=== PATIENT | female | born 1975 | race Caucasian/White ===

== ENCOUNTER 2021-01-16 13:26 | Inpatient (IN) | payer MEDICARE, OTHER, SELFPAY ==
--- NOTE | ~2021-01-16 | CT_ITS ---
EXAMINATION: CT ANGIOGRAM OF THE CHEST WITH AND WITHOUT CONTRAST (CT PULMONARY ANGIOGRAM FOR PE) CLINICAL INFORMATION: Hypoxia, COVID, elevated D-dimer, evaluate for pulmonary embolism. COMPARISON: None TECHNIQUE: Prior to contrast administration, noncontrast localization images were obtained. Subsequently, multidetector volumetric imaging was performed from the thoracic inlet to below the diaphragms following the administration of 71 mL Omnipaque 350 intravenous contrast. No contrast reaction reported. Sagittal, coronal, and MIP oblique sagittal reformatted images were obtained on the CT workstation, uploaded to PACS, and reviewed. This CT examination was performed using dose optimization techniques as appropriate, variously including the following: *Automated exposure control *Adjustment of mA and/or kV according to patient size (this includes techniques or standardized protocols for targeted exams where dose is matched to indication/reason for exam; i.e. extremities or head) *Use of iterative reconstruction technique DLP: Total exam dose-length product 430 mGy-cm FINDINGS: LOCALIZER IMAGES: Large body habitus. Patchy hazy bilateral pulmonary opacities. LUNGS AND PLEURA: Trachea and central airways are widely patent and normal in caliber. Multiple patchy predominantly groundglass opacities scattered throughout both lungs. Many of the opacities are peripherally distributed. These are typical imaging findings of Covid pneumonia. Linear opacity of atelectasis is present in the medial left lower lobe. An old opacity in the posteromedial right lower lobe likely represents focal fibrosis at site of prior infection/inflammation. No pneumothorax or pleural effusion. QUALITY OF STUDY/CONTRAST BOLUS: Satisfactory. CARDIOVASCULAR: Pulmonary arteries are normal in size. An embolism of the right upper lobe pulmonary artery extends into the apical branch. A subsegmental embolism is present in the right middle lobe. A right lower lobe embolism has components involving the proximal branches to the lateral and posterior basilar segments. The heart size is normal. No inward bowing of the interventricular septum; no heart strain. Thoracic aorta is normal; no aneurysm or dissection. No pericardial effusion. MEDIASTINUM/LOWER NECK: The esophagus and visualized portion of the thyroid gland are normal. No mediastinal mass. LYMPHATICS: No pathologic sized axillary, hilar or mediastinal lymph nodes. UPPER ABDOMEN: No contrast reflux into the inferior vena cava. No acute findings in the visualized upper abdomen. Spleen is chronically enlarged, currently 14.6 cm AP dimension (13.5 cm on 07/26/2014). OSSEOUS STRUCTURES: No acute or suspicious osseous abnormality. CT/CT angio chest PE protocol IMPRESSION: * Patchy bilateral groundglass pulmonary opacities are present. Findings are consistent with Covid pneumonia. * There are emboli involving the right upper, middle and right lower lobes. However, no evidence of heart strain. * Patient has a large body habitus and there is chronic splenomegaly. The critical test result was discussed with WALTER York at 7:52 pm on 01/16/2021 and it was ascertained that the content and the importance of the findings was understood at the time of the direct communication.
--- NOTE | ~2021-01-16 | XR_ITS ---
EXAMINATION: XR CHEST CLINICAL INFORMATION: Shortness of breath. COMPARISON: Chest radiograph dated from 03/09/2015. TECHNIQUE: AP view of the chest was obtained. FINDINGS: Normal appearance of the cardiomediastinal silhouette. There are low lung volumes with interstitial prominence and patchy opacities in the middle and lower lobes. No pleural effusions or pneumothorax. No acute osseous findings. XR/XR chest 1V IMPRESSION: Bronchial wall thickening and patchy opacities in the lung bases of uncertain etiology. An atypical multifocal infection is not excluded. Correlate clinically and follow-up to ensure resolution.
--- NOTE | 2021-01-16 13:38 | ED.SOB ---
HPI - SOB/Dyspnea General Chief Complaint: Dyspnea <WALTER Ko - Last Filed: 01/16/21 19:09> Stated Complaint: + COVID Weakness SOB <WALTER Ko - Last Filed: 01/16/21 19:09> Time Seen by Provider: 01/16/21 13:38 <WALTER Ko - Last Filed: 01/16/21 19:09> Source: patient <WALTER Ko - Last Filed: 01/16/21 19:09> Mode of arrival: ambulatory <WALTER Ko - Last Filed: 01/16/21 19:09> Limitations: no limitations <WALTER Ko Last Filed: 01/16/21 19:09> History of Present Illness HPI Narrative: 46 y/o female with no known past medical history presents to the emergency department with shortness of breath, fevers, chills, abdominal pain, chest pain, weakness and fatigue X7 days. She also states that she has been having vomiting and diarrhea X2 days. She is unable to quantify how many times she has had vomiting, diarrhea episodes. She states at home her fevers have been anywhere between 100 and 101 degrees F. she reports vague epigastric pain for the past week. She also reports substernal chest pain, that is intermittent in nature and does not radiate. She reports constant, and worsening shortness of breath over the past 7 days, which is worse with exertion. Alll 5 individuals which she lives with at home are all sick with COVID 19. She states that she tested positive for COVID on January 10, but her symptoms began a few days before she tested positive. She does not have a cough. She is not a smoker. <WALTER Ko Last Filed: 01/16/21 19:09> MD elicited complaint: shortness of breath and chest pain (Substernal) <WALTER Ko Last Filed: 01/16/21 19:09> Onset (ago): day(s) (7) <WALTER Ko Last Filed: 01/16/21 19:09> Context: other (Recent sick contacts) <WALTER Ko Last Filed: 01/16/21 19:09> Severity: severe <WALTER Ko Last Filed: 01/16/21 19:09> Exacerbating factors: movement, coughing, inspiration and talking <WALTER Ko Last Filed: 01/16/21 19:09> Relieving factors: nothing <WALTER Ko Last Filed: 01/16/21 19:09> Associated symptoms: chest pain, fever, diaphoresis, nausea/vomiting, abdominal pain (Epigastric pain) and chest congestion <WALTER Ko Last Filed: 01/16/21 19:09> Treatment prior to arrival: oxygen (On 2 L via nasal cannula.) <WALTER Ko Last Filed: 01/16/21 19:09> Related Data Home oxygen amount: none <WALTER Ko Last Filed: 01/16/21 19:09> Home Medications: Home Medications Medication Instructions Recorded Confirmed buspirone 15 mg tablet 1 tab PO BID 01/16/21 01/16/21 hydrocodone 5 mg-acetaminophen 325 1 tab PO DAILY PRN 01/16/21 01/16/21 mg tablet multivitamin 1 tab PO DAILY 01/16/21 01/16/21 norethindrone 1 mg-ethinyl 1 tab PO DAILY 01/16/21 01/16/21 estradiol 20 mcg (21)-iron 75 mg (7) tablet (05/15 (28)) sertraline 100 mg tablet 1 tab PO DAILY 01/16/21 01/16/21 tizanidine 2 mg tablet 1 tab PO Q OTHER DAY PRN 01/16/21 01/16/21 <WALTER Ko - Last Filed: 01/16/21 19:09> Allergies/Adverse Reactions: Allergies Allergy/AdvReac Type Severity Reaction Status Date / Time sulfamethoxazole Allergy Unknown VOMITING Unverified 01/11/20 16:40 [From BACTRIM] trimethoprim [From BACTRIM] Allergy Unknown VOMITING Unverified 01/11/20 16:40 naproxen [NAPROXEN] AdvReac Intermediate NAUSEA & Unverified 01/11/20 16:40 VOMITING <WALTER Ko Last Filed: 01/16/21 19:09> Review of Systems Review of Systems: Constitutional: + Fever, + Chills ENT/Mouth: No sore throat, No Rhinorrhea, No Swallowing Difficulty Cardiovascular: + Chest Pain, + SOB, No Orthopnea, No Edema Respiratory: No Cough, No Sputum, No Wheezing, + dyspnea Gastrointestinal: + Nausea, + Vomiting, + Diarrhea, + abdominal Pain, No Hematochezia, No Melena Genitourinary: No Dysuria, No Urinary Frequency, No Hematuria Musculoskeletal: No joint pain, No Myalgias Skin: No Skin Lesions, No rash Neuro: No Weakness, No Numbness, No Dizziness, No Headache <WALTER Ko - Last Filed: 01/16/21 19:09> [facility] Social History Social History: Social History Patient Tobacco Use Status: Never used Tobacco Smoked in Last 30 Days: No Use of substances other than those prescribed or required for medical reasons: No Advance Directives: No Advance Directives Information Provided: No <WALTER Ko - Last Filed: 01/16/21 19:09> Physical Exam Vital Signs: Vital Signs: Last Vital Signs Temp 98.1 F 01/16/21 18:08 Pulse 86 01/16/21 18:08 Resp 16 01/16/21 18:08 BP 152/96 H 01/16/21 18:08 Pulse Ox 96 01/16/21 18:08 Oxygen Flow Rate 2 01/16/21 13:55 Body Mass Index 42.0 <WALTER Ko - Last Filed: 01/16/21 19:09> Vital Signs: Last Vital Signs Temp 98.1 F 01/16/21 18:08 Pulse 86 01/16/21 18:08 Resp 16 01/16/21 18:08 BP 152/96 H 01/16/21 18:08 Pulse Ox 96 01/16/21 18:08 Oxygen Flow Rate 2 01/16/21 13:55 Body Mass Index 42.0 <WALTER York - Last Filed: 01/16/21 19:30> Appearance: Alert. Oriented X3. No acute distress. Eyes: Pupils equal, round and reactive to light. ENT: Pharynx normal. Neck: Normal inspection. Neck supple. CVS: + normal rhythm rapid rate likely sinus tachycardia. Pulses normal. Respiratory: No respiratory distress. + Breath sounds diminished bilaterally in all lung espinosa Abdomen: Soft and + tenderness to the epigastric region. +BS x4 Skin: Skin warm and dry. + palor noted throughout. Normal skin turgor. No rashes. Extremities: No lower extremity edema. Neuro: Oriented X 3. No motor deficit. No sensory deficit. <WALTER Ko - Last Filed: 01/16/21 19:09> Course Course Course Narrative: 1428 This is a 46-year-old female with no known past medical history that presents to the emergency department with chest pain, shortness of breath, abdominal pain, nausea, vomiting, diarrhea, and fevers. Nausea, vomiting and diarrhea started 2 days ago. She is unable to quantify how many times she has had vomiting and/or diarrhea. She has been experiencing all other symptoms for 7 days. Her chest pain is substernal, nonradiating, and intermittent in nature. She has been experiencing increasing shortness of breath over the past 7 days, to the point she states she feels like she is going to to pass out. She tested positive for COVID-19 on January 10, however she started having symptoms on the . Today upon physical examination she is saturating 96% on 2 L. When the ambulance arrived on scene, she was saturating 93% on room air. Upon physical examination the patient appears uncomfortable, pale, and there are bilateral diminished breath sounds in all lung espinosa. She is also tachycardic in the high 90s low 100s. Plan- EKG, chest x-ray, CRP, ESR, lactic acid, LDH, procalcitonin, tropes, urine , BMP, CBC, COVID swab, D-dimer, ferritin, lipase, liver panel, mag, UA, blood cultures. She will also be given fluids, dexamethasone, and Zofran. 1544 Chest x-ray shows bronchial wall thickening and patchy opacities in the lung bases. 1625- Trop 8.3 patient still reporting chest pressure will do another trop at 1845 1636- Patient on 3L on nasal cannula saturating 96%. A walking O2 was done, she was saturating 90% on RA with a pulse rate of 102, with labored breathing and a cough, she was unable to walk the full 1 minutes, due to shortness of breath, labored breathing and cough. Based on off this patients labs, physical exam, EKG, and imaging this patient should be admitted for COVID-19 and hypoxia. Will need to reach out to the hospitalist for possible admission. DDIMER 2200 - will get CTA to r/o PE. <WALTER Ko - Last Filed: 01/16/21 19:09> MDM - SOB/Dyspnea Lab Data Result diagrams: : 01/16/21 15:17 01/16/21 15:17 <WALTER Ko - Last Filed: 01/16/21 19:09> Labs: Lab Results 01/16/21 01/16/21 01/16/21 Range/Units 15:16 15:16 15:17 WBC (4.8-10.8) X10*3/uL RBC (4.20-5.50) X10*6/uL Hgb (12.0-16.0) g/dl Hct (37-47) % MCV (80-98) fL MCH (27.0-33.0) pg MCHC (31.0-35.0) g/dl RDW (11.0-16.0) % Plt Count (160-400) X10*3/uL MPV (9.4-12.3) fL Immature Gran % (Auto) (0.0-0.4) % Neut % (Auto) (45-73) % Lymph % (Auto) (20-40) % Butts % (Auto) (2-11) % Eos % (Auto) (0-4) % Baso % (Auto) (0-2) % Lymph # (Auto) (1.2-4.9) X10*3/uL Butts # (Auto) (0.1-1.2) X10*3/uL Eos # (Auto) (0.0-0.4) X10*3/uL Baso # (Auto) (0.0-0.2) X10*3/uL Abs Immat Gran (auto) (0.00-0.03) X10*3/uL Absolute Neuts (auto) (2.0-8.3) X10*3/uL Absolute Nucleated RBC (0.0-0.012) X10*3/uL Nucleated RBC % (auto) (0.0-0.2) /100WBC ESR (0-20) MM/HR D-Dimer NG/ML Sodium 136 (135-145) mmol/L Potassium 3.5 (3.3-5.1) mmol/L Chloride 106 (96-108) mmol/L Carbon Dioxide 19 L (22-29) mmol/L Anion Gap 15 (12-20) BUN 10 (9-16) mg/dL Creatinine 0.63 (0.5-1.4) mg/dL Estim Creat Clear Calc 125.0 Estimated GFR > 60 Random Glucose 114 (60-115) mg/dL Lactic Acid 1.0 (0.5-2.0) mmol/L Calcium 8.4 (8.4-10.2) mg/dL Magnesium 1.8 (1.6-2.6) mg/dL Ferritin (10-250) ng/mL Total Bilirubin 0.5 (0.0-1.0) mg/dL Direct Bilirubin 0.3 (0.0-0.5) mg/dL AST 41 H (5-31) U/L ALT 38 H (0-31) U/L Alkaline Phosphatase 70 (39-117) U/L Lactate Dehydrogenase 387 H (122-220) U/L Troponin I High Sens (<3.5-17.0) ng/L C-Reactive Protein 5.39 H (< or = 0.50) mg/dL Total Protein 6.7 (6.5-8.0) g/dL Albumin 3.9 (3.5-5.0) g/dL Lipase 46 (8-78) U/L Procalcitonin ng/mL Urine Color Urine Appearance Urine pH (5.0-8.0) Ur Specific [employer] (1.005-1.025) Urine Protein (NEG-TRACE) MG/DL Urine Glucose (UA) (NEG) MG/DL Urine Ketones (NEG) MG/DL Urine Blood (NEG) Urine Nitrite (NEG) Ur Leukocyte Esterase (NEG) Urine RBC (0) /HPF Urine WBC (0-4) /HPF Ur Squamous Epith Cells /LPF Talc Crystals /LPF Urine Bacteria /LPF Urine Test (NEGATIVE) COVID-19 ([facility]) Positive A (Negative) COVID-19 Clin Com See Note 01/16/21 01/16/21 01/16/21 Range/Units 15:17 15:17 15:17 WBC 3.9 L (4.8-10.8) X10*3/uL RBC 4.62 (4.20-5.50) X10*6/uL Hgb 12.5 (12.0-16.0) g/dl Hct 37.3 (37-47) % MCV 80.7 (80-98) fL MCH 27.1 (27.0-33.0) pg MCHC 33.5 (31.0-35.0) g/dl RDW 13.5 (11.0-16.0) % Plt Count 180 (160-400) X10*3/uL MPV 9.7 (9.4-12.3) fL Immature Gran % (Auto) 0.3 (0.0-0.4) % Neut % (Auto) 80.4 H (45-73) % Lymph % (Auto) 13.9 L (20-40) % Butts % (Auto) 5.4 (2-11) % Eos % (Auto) 0.0 (0-4) % Baso % (Auto) 0.0 (0-2) % Lymph # (Auto) 0.5 L (1.2-4.9) X10*3/uL Butts # (Auto) 0.2 (0.1-1.2) X10*3/uL Eos # (Auto) 0.0 (0.0-0.4) X10*3/uL Baso # (Auto) 0.0 (0.0-0.2) X10*3/uL Abs Immat Gran (auto) 0.01 (0.00-0.03) X10*3/uL Absolute Neuts (auto) 3.1 (2.0-8.3) X10*3/uL Absolute Nucleated RBC 0.000 (0.0-0.012) X10*3/uL Nucleated RBC % (auto) 0.0 (0.0-0.2) /100WBC ESR 16 (0-20) MM/HR D-Dimer NG/ML Sodium (135-145) mmol/L Potassium (3.3-5.1) mmol/L Chloride (96-108) mmol/L Carbon Dioxide (22-29) mmol/L Anion Gap (12-20) BUN (9-16) mg/dL Creatinine (0.5-1.4) mg/dL Estim Creat Clear Calc Estimated GFR Random Glucose (60-115) mg/dL Lactic Acid (0.5-2.0) mmol/L Calcium (8.4-10.2) mg/dL Magnesium (1.6-2.6) mg/dL Ferritin (10-250) ng/mL Total Bilirubin (0.0-1.0) mg/dL Direct Bilirubin (0.0-0.5) mg/dL AST (5-31) U/L ALT (0-31) U/L Alkaline Phosphatase (39-117) U/L Lactate Dehydrogenase (122-220) U/L Troponin I High Sens (<3.5-17.0) ng/L C-Reactive Protein (< or = 0.50) mg/dL Total Protein (6.5-8.0) g/dL Albumin (3.5-5.0) g/dL Lipase (8-78) U/L Procalcitonin 0.05 ng/mL Urine Color Urine Appearance Urine pH (5.0-8.0) Ur Specific [employer] (1.005-1.025) Urine Protein (NEG-TRACE) MG/DL Urine Glucose (UA) (NEG) MG/DL Urine Ketones (NEG) MG/DL Urine Blood (NEG) Urine Nitrite (NEG) Ur Leukocyte Esterase (NEG) Urine RBC (0) /HPF Urine WBC (0-4) /HPF Ur Squamous Epith Cells /LPF Talc Crystals /LPF Urine Bacteria /LPF Urine Test (NEGATIVE) COVID-19 ([facility]) (Negative) COVID-19 Clin Com 01/16/21 01/16/21 01/16/21 Range/Units 15:17 15:17 16:38 WBC (4.8-10.8) X10*3/uL RBC (4.20-5.50) X10*6/uL Hgb (12.0-16.0) g/dl Hct (37-47) % MCV (80-98) fL MCH (27.0-33.0) pg MCHC (31.0-35.0) g/dl RDW (11.0-16.0) % Plt Count (160-400) X10*3/uL MPV (9.4-12.3) fL Immature Gran % (Auto) (0.0-0.4) % Neut % (Auto) (45-73) % Lymph % (Auto) (20-40) % Butts % (Auto) (2-11) % Eos % (Auto) (0-4) % Baso % (Auto) (0-2) % Lymph # (Auto) (1.2-4.9) X10*3/uL Butts # (Auto) (0.1-1.2) X10*3/uL Eos # (Auto) (0.0-0.4) X10*3/uL Baso # (Auto) (0.0-0.2) X10*3/uL Abs Immat Gran (auto) (0.00-0.03) X10*3/uL Absolute Neuts (auto) (2.0-8.3) X10*3/uL Absolute Nucleated RBC (0.0-0.012) X10*3/uL Nucleated RBC % (auto) (0.0-0.2) /100WBC ESR (0-20) MM/HR D-Dimer 2200 NG/ML Sodium (135-145) mmol/L Potassium (3.3-5.1) mmol/L Chloride (96-108) mmol/L Carbon Dioxide (22-29) mmol/L Anion Gap (12-20) BUN (9-16) mg/dL Creatinine (0.5-1.4) mg/dL Estim Creat Clear Calc Estimated GFR Random Glucose (60-115) mg/dL Lactic Acid (0.5-2.0) mmol/L Calcium (8.4-10.2) mg/dL Magnesium (1.6-2.6) mg/dL Ferritin 1172 H (10-250) ng/mL Total Bilirubin (0.0-1.0) mg/dL Direct Bilirubin (0.0-0.5) mg/dL AST (5-31) U/L ALT (0-31) U/L Alkaline Phosphatase (39-117) U/L Lactate Dehydrogenase (122-220) U/L Troponin I High Sens 8.3 (<3.5-17.0) ng/L C-Reactive Protein (< or = 0.50) mg/dL Total Protein (6.5-8.0) g/dL Albumin (3.5-5.0) g/dL Lipase (8-78) U/L Procalcitonin ng/mL Urine Color Urine Appearance Urine pH (5.0-8.0) Ur Specific [employer] (1.005-1.025) Urine Protein (NEG-TRACE) MG/DL Urine Glucose (UA) (NEG) MG/DL Urine Ketones (NEG) MG/DL Urine Blood (NEG) Urine Nitrite (NEG) Ur Leukocyte Esterase (NEG) Urine RBC (0) /HPF Urine WBC (0-4) /HPF Ur Squamous Epith Cells /LPF [employer]c Crystals /LPF Urine Bacteria /LPF Urine Test (NEGATIVE) COVID-19 ([facility]) (Negative) COVID-19 Clin Com 01/16/21 01/16/21 01/16/21 Range/Units 16:38 16:38 18:46 WBC (4.8-10.8) X10*3/uL RBC (4.20-5.50) X10*6/uL Hgb (12.0-16.0) g/dl Hct (37-47) % MCV (80-98) fL MCH (27.0-33.0) pg MCHC (31.0-35.0) g/dl RDW (11.0-16.0) % Plt Count (160-400) X10*3/uL MPV (9.4-12.3) fL Immature Gran % (Auto) (0.0-0.4) % Neut % (Auto) (45-73) % Lymph % (Auto) (20-40) % Butts % (Auto) (2-11) % Eos % (Auto) (0-4) % Baso % (Auto) (0-2) % Lymph # (Auto) (1.2-4.9) X10*3/uL Butts # (Auto) (0.1-1.2) X10*3/uL Eos # (Auto) (0.0-0.4) X10*3/uL Baso # (Auto) (0.0-0.2) X10*3/uL Abs Immat Gran (auto) (0.00-0.03) X10*3/uL Absolute Neuts (auto) (2.0-8.3) X10*3/uL Absolute Nucleated RBC (0.0-0.012) X10*3/uL Nucleated RBC % (auto) (0.0-0.2) /100WBC ESR (0-20) MM/HR D-Dimer NG/ML Sodium (135-145) mmol/L Potassium (3.3-5.1) mmol/L Chloride (96-108) mmol/L Carbon Dioxide (22-29) mmol/L Anion Gap (12-20) BUN (9-16) mg/dL Creatinine (0.5-1.4) mg/dL Estim Creat Clear Calc Estimated GFR Random Glucose (60-115) mg/dL Lactic Acid (0.5-2.0) mmol/L Calcium (8.4-10.2) mg/dL Magnesium (1.6-2.6) mg/dL Ferritin (10-250) ng/mL Total Bilirubin (0.0-1.0) mg/dL Direct Bilirubin (0.0-0.5) mg/dL AST (5-31) U/L ALT (0-31) U/L Alkaline Phosphatase (39-117) U/L Lactate Dehydrogenase (122-220) U/L Troponin I High Sens 8.9 (<3.5-17.0) ng/L C-Reactive Protein (< or = 0.50) mg/dL Total Protein (6.5-8.0) g/dL Albumin (3.5-5.0) g/dL Lipase (8-78) U/L Procalcitonin ng/mL Urine Color DK YELLOW Urine Appearance CLEAR Urine pH 6.0 (5.0-8.0) Ur Specific [employer] 1.010 (1.005-1.025) Urine Protein 1+ H (NEG-TRACE) MG/DL Urine Glucose (UA) NEG (NEG) MG/DL Urine Ketones NEG (NEG) MG/DL Urine Blood NEG (NEG) Urine Nitrite NEG (NEG) Ur Leukocyte Esterase NEG (NEG) Urine RBC 0 (0) /HPF Urine WBC 0 (0-4) /HPF Ur Squamous Epith Cells 2+ /LPF [employer]c Crystals 3+ /LPF Urine Bacteria NONE /LPF Urine Test NEGATIVE (NEGATIVE) COVID-19 ([facility]) (Negative) COVID-19 Clin Com <WALTER Ko - Last Filed: 01/16/21 19:09> Lab Results 01/16/21 01/16/21 01/16/21 Range/Units 15:16 15:16 15:17 WBC (4.8-10.8) X10*3/uL RBC (4.20-5.50) X10*6/uL Hgb (12.0-16.0) g/dl Hct (37-47) % MCV (80-98) fL MCH (27.0-33.0) pg MCHC (31.0-35.0) g/dl RDW (11.0-16.0) % Plt Count (160-400) X10*3/uL MPV (9.4-12.3) fL Immature Gran % (Auto) (0.0-0.4) % Neut % (Auto) (45-73) % Lymph % (Auto) (20-40) % Butts % (Auto) (2-11) % Eos % (Auto) (0-4) % Baso % (Auto) (0-2) % Lymph # (Auto) (1.2-4.9) X10*3/uL Butts # (Auto) (0.1-1.2) X10*3/uL Eos # (Auto) (0.0-0.4) X10*3/uL Baso # (Auto) (0.0-0.2) X10*3/uL Abs Immat Gran (auto) (0.00-0.03) X10*3/uL Absolute Neuts (auto) (2.0-8.3) X10*3/uL Absolute Nucleated RBC (0.0-0.012) X10*3/uL Nucleated RBC % (auto) (0.0-0.2) /100WBC ESR (0-20) MM/HR D-Dimer NG/ML Sodium 136 (135-145) mmol/L Potassium 3.5 (3.3-5.1) mmol/L Chloride 106 (96-108) mmol/L Carbon Dioxide 19 L (22-29) mmol/L Anion Gap 15 (12-20) BUN 10 (9-16) mg/dL Creatinine 0.63 (0.5-1.4) mg/dL Estim Creat Clear Calc 125.0 Estimated GFR > 60 Random Glucose 114 (60-115) mg/dL Lactic Acid 1.0 (0.5-2.0) mmol/L Calcium 8.4 (8.4-10.2) mg/dL Magnesium 1.8 (1.6-2.6) mg/dL Ferritin (10-250) ng/mL Total Bilirubin 0.5 (0.0-1.0) mg/dL Direct Bilirubin 0.3 (0.0-0.5) mg/dL AST 41 H (5-31) U/L ALT 38 H (0-31) U/L Alkaline Phosphatase 70 (39-117) U/L Lactate Dehydrogenase 387 H (122-220) U/L Troponin I High Sens (<3.5-17.0) ng/L C-Reactive Protein 5.39 H (< or = 0.50) mg/dL Total Protein 6.7 (6.5-8.0) g/dL Albumin 3.9 (3.5-5.0) g/dL Lipase 46 (8-78) U/L Procalcitonin ng/mL Urine Color Urine Appearance Urine pH (5.0-8.0) Ur Specific [employer] (1.005-1.025) Urine Protein (NEG-TRACE) MG/DL Urine Glucose (UA) (NEG) MG/DL Urine Ketones (NEG) MG/DL Urine Blood (NEG) Urine Nitrite (NEG) Ur Leukocyte Esterase (NEG) Urine RBC (0) /HPF Urine WBC (0-4) /HPF Ur Squamous Epith Cells /LPF [employer] Crystals /LPF Urine Bacteria /LPF Urine Test (NEGATIVE) COVID-19 ([facility]) Positive A (Negative) COVID-19 Clin Com See Note 01/16/21 01/16/21 01/16/21 Range/Units 15:17 15:17 15:17 WBC 3.9 L (4.8-10.8) X10*3/uL RBC 4.62 (4.20-5.50) X10*6/uL Hgb 12.5 (12.0-16.0) g/dl Hct 37.3 (37-47) % MCV 80.7 (80-98) fL MCH 27.1 (27.0-33.0) pg MCHC 33.5 (31.0-35.0) g/dl RDW 13.5 (11.0-16.0) % Plt Count 180 (160-400) X10*3/uL MPV 9.7 (9.4-12.3) fL Immature Gran % (Auto) 0.3 (0.0-0.4) % Neut % (Auto) 80.4 H (45-73) % Lymph % (Auto) 13.9 L (20-40) % Butts % (Auto) 5.4 (2-11) % Eos % (Auto) 0.0 (0-4) % Baso % (Auto) 0.0 (0-2) % Lymph # (Auto) 0.5 L (1.2-4.9) X10*3/uL Butts # (Auto) 0.2 (0.1-1.2) X10*3/uL Eos # (Auto) 0.0 (0.0-0.4) X10*3/uL Baso # (Auto) 0.0 (0.0-0.2) X10*3/uL Abs Immat Gran (auto) 0.01 (0.00-0.03) X10*3/uL Absolute Neuts (auto) 3.1 (2.0-8.3) X10*3/uL Absolute Nucleated RBC 0.000 (0.0-0.012) X10*3/uL Nucleated RBC % (auto) 0.0 (0.0-0.2) /100WBC ESR 16 (0-20) MM/HR D-Dimer NG/ML Sodium (135-145) mmol/L Potassium (3.3-5.1) mmol/L Chloride (96-108) mmol/L Carbon Dioxide (22-29) mmol/L Anion Gap (12-20) BUN (9-16) mg/dL Creatinine (0.5-1.4) mg/dL Estim Creat Clear Calc Estimated GFR Random Glucose (60-115) mg/dL Lactic Acid (0.5-2.0) mmol/L Calcium (8.4-10.2) mg/dL Magnesium (1.6-2.6) mg/dL Ferritin (10-250) ng/mL Total Bilirubin (0.0-1.0) mg/dL Direct Bilirubin (0.0-0.5) mg/dL AST (5-31) U/L ALT (0-31) U/L Alkaline Phosphatase (39-117) U/L Lactate Dehydrogenase (122-220) U/L Troponin I High Sens (<3.5-17.0) ng/L C-Reactive Protein (< or = 0.50) mg/dL Total Protein (6.5-8.0) g/dL Albumin (3.5-5.0) g/dL Lipase (8-78) U/L Procalcitonin 0.05 ng/mL Urine Color Urine Appearance Urine pH (5.0-8.0) Ur Specific [employer] (1.005-1.025) Urine Protein (NEG-TRACE) MG/DL Urine Glucose (UA) (NEG) MG/DL Urine Ketones (NEG) MG/DL Urine Blood (NEG) Urine Nitrite (NEG) Ur Leukocyte Esterase (NEG) Urine RBC (0) /HPF Urine WBC (0-4) /HPF Ur Squamous Epith Cells /LPF [employer] Crystals /LPF Urine Bacteria /LPF Urine Test (NEGATIVE) COVID-19 ([facility]) (Negative) COVID-19 Clin Com 01/16/21 01/16/21 01/16/21 Range/Units 15:17 15:17 16:38 WBC (4.8-10.8) X10*3/uL RBC (4.20-5.50) X10*6/uL Hgb (12.0-16.0) g/dl Hct (37-47) % MCV (80-98) fL MCH (27.0-33.0) pg MCHC (31.0-35.0) g/dl RDW (11.0-16.0) % Plt Count (160-400) X10*3/uL MPV (9.4-12.3) fL Immature Gran % (Auto) (0.0-0.4) % Neut % (Auto) (45-73) % Lymph % (Auto) (20-40) % Butts % (Auto) (2-11) % Eos % (Auto) (0-4) % Baso % (Auto) (0-2) % Lymph # (Auto) (1.2-4.9) X10*3/uL Butts # (Auto) (0.1-1.2) X10*3/uL Eos # (Auto) (0.0-0.4) X10*3/uL Baso # (Auto) (0.0-0.2) X10*3/uL Abs Immat Gran (auto) (0.00-0.03) X10*3/uL Absolute Neuts (auto) (2.0-8.3) X10*3/uL Absolute Nucleated RBC (0.0-0.012) X10*3/uL Nucleated RBC % (auto) (0.0-0.2) /100WBC ESR (0-20) MM/HR D-Dimer 2200 NG/ML Sodium (135-145) mmol/L Potassium (3.3-5.1) mmol/L Chloride (96-108) mmol/L Carbon Dioxide (22-29) mmol/L Anion Gap (12-20) BUN (9-16) mg/dL Creatinine (0.5-1.4) mg/dL Estim Creat Clear Calc Estimated GFR Random Glucose (60-115) mg/dL Lactic Acid (0.5-2.0) mmol/L Calcium (8.4-10.2) mg/dL Magnesium (1.6-2.6) mg/dL Ferritin 1172 H (10-250) ng/mL Total Bilirubin (0.0-1.0) mg/dL Direct Bilirubin (0.0-0.5) mg/dL AST (5-31) U/L ALT (0-31) U/L Alkaline Phosphatase (39-117) U/L Lactate Dehydrogenase (122-220) U/L Troponin I High Sens 8.3 (<3.5-17.0) ng/L C-Reactive Protein (< or = 0.50) mg/dL Total Protein (6.5-8.0) g/dL Albumin (3.5-5.0) g/dL Lipase (8-78) U/L Procalcitonin ng/mL Urine Color Urine Appearance Urine pH (5.0-8.0) Ur Specific [employer] (1.005-1.025) Urine Protein (NEG-TRACE) MG/DL Urine Glucose (UA) (NEG) MG/DL Urine Ketones (NEG) MG/DL Urine Blood (NEG) Urine Nitrite (NEG) Ur Leukocyte Esterase (NEG) Urine RBC (0) /HPF Urine WBC (0-4) /HPF Ur Squamous Epith Cells /LPF Talc Crystals /LPF Urine Bacteria /LPF Urine Test (NEGATIVE) COVID-19 ([facility]) (Negative) COVID-19 Clin Com 01/16/21 01/16/21 01/16/21 Range/Units 16:38 16:38 18:46 WBC (4.8-10.8) X10*3/uL RBC (4.20-5.50) X10*6/uL Hgb (12.0-16.0) g/dl Hct (37-47) % MCV (80-98) fL MCH (27.0-33.0) pg MCHC (31.0-35.0) g/dl RDW (11.0-16.0) % Plt Count (160-400) X10*3/uL MPV (9.4-12.3) fL Immature Gran % (Auto) (0.0-0.4) % Neut % (Auto) (45-73) % Lymph % (Auto) (20-40) % Butts % (Auto) (2-11) % Eos % (Auto) (0-4) % Baso % (Auto) (0-2) % Lymph # (Auto) (1.2-4.9) X10*3/uL Butts # (Auto) (0.1-1.2) X10*3/uL Eos # (Auto) (0.0-0.4) X10*3/uL Baso # (Auto) (0.0-0.2) X10*3/uL Abs Immat Gran (auto) (0.00-0.03) X10*3/uL Absolute Neuts (auto) (2.0-8.3) X10*3/uL Absolute Nucleated RBC (0.0-0.012) X10*3/uL Nucleated RBC % (auto) (0.0-0.2) /100WBC ESR (0-20) MM/HR D-Dimer NG/ML Sodium (135-145) mmol/L Potassium (3.3-5.1) mmol/L Chloride (96-108) mmol/L Carbon Dioxide (22-29) mmol/L Anion Gap (12-20) BUN (9-16) mg/dL Creatinine (0.5-1.4) mg/dL Estim Creat Clear Calc Estimated GFR Random Glucose (60-115) mg/dL Lactic Acid (0.5-2.0) mmol/L Calcium (8.4-10.2) mg/dL Magnesium (1.6-2.6) mg/dL Ferritin (10-250) ng/mL Total Bilirubin (0.0-1.0) mg/dL Direct Bilirubin (0.0-0.5) mg/dL AST (5-31) U/L ALT (0-31) U/L Alkaline Phosphatase (39-117) U/L Lactate Dehydrogenase (122-220) U/L Troponin I High Sens 8.9 (<3.5-17.0) ng/L C-Reactive Protein (< or = 0.50) mg/dL Total Protein (6.5-8.0) g/dL Albumin (3.5-5.0) g/dL Lipase (8-78) U/L Procalcitonin ng/mL Urine Color DK YELLOW Urine Appearance CLEAR Urine pH 6.0 (5.0-8.0) Ur Specific [employer] 1.010 (1.005-1.025) Urine Protein 1+ H (NEG-TRACE) MG/DL Urine Glucose (UA) NEG (NEG) MG/DL Urine Ketones NEG (NEG) MG/DL Urine Blood NEG (NEG) Urine Nitrite NEG (NEG) Ur Leukocyte Esterase NEG (NEG) Urine RBC 0 (0) /HPF Urine WBC 0 (0-4) /HPF Ur Squamous Epith Cells 2+ /LPF [employer] Crystals 3+ /LPF Urine Bacteria NONE /LPF Urine Test NEGATIVE (NEGATIVE) COVID-19 ([facility]) (Negative) COVID-19 Clin Com <WALTER York - Last Filed: 01/16/21 19:30> ECG Data Attestation: I personally reviewed and interpreted this ECG as follows: <WALTER Ko - Last Filed: 01/16/21 19:09> ECG interpretation date: 01/16/21 <WALTER Ko - Last Filed: 01/16/21 19:09> Interpretation: normal sinus rhythm, HR 87, t-wave inversions in lead V1-V3, no ST segment elevations or depressions <WALTER Ko Last Filed: 01/16/21 19:09> Critical Care Time Critical Care Time Critical Care Time: Yes <WALTER Ko - Last Filed: 01/16/21 19:09> Total Critical Care Time: 44 <WALTER Ko - Last Filed: 01/16/21 19:09> Attestation: I have personally provided critical care time exclusive of time spent on separately billable procedures. Time includes review of lab data, radiology results, discussion with consultants, and monitoring for potential decompensation. Intervention performed as documented. <WALTER Ko Last Filed: 01/16/21 19:09> Discharge Plan Discharge Clinical Impression: COVID-19, Acute respiratory failure with hypoxia <WALTER Ko Last Filed: 01/16/21 19:09> Prescriptions: No Action tizanidine 2 mg tablet 1 tab PO Q OTHER DAY PRN (Reason: Spasms) RF: 0 sertraline 100 mg tablet 1 tab PO DAILY RF: 0 norethindrone-e.estradiol-iron [05/15 ()] 1 mg-20 mcg (21)/75 mg (7) tablet 1 tab PO DAILY RF: 0 buspirone 15 mg tablet 1 tab PO BID RF: 0 multivitamin Tablet 1 tab PO DAILY RF: 0 hydrocodone-acetaminophen 5-325 mg tablet 1 tab PO DAILY PRN (Reason: pain) RF: 0 <WALTER Ko Last Filed: 01/16/21 19:09>
[2021-01-16 13:55] VITALS: BP 120/72; BP 139/60; PULSE 93; RESP 20; TEMP 37.4; O2SAT 93; O2SAT 96; BMI 42.0
--- NOTE | 2021-01-16 14:13 | PC.NURSE ---
pt states she did not get her covid vaccine
--- NOTE | 2021-01-16 14:29 | ECG_ITS ---
Test Reason : SOB Blood Pressure : / mmHG Vent. Rate : 087 BPM Atrial Rate : 087 BPM P-R Int : 140 ms QRS Dur : 080 ms QT Int : 386 ms P-R-T Axes : 058 -02 031 degrees QTc Int : 464 ms Normal sinus rhythm Nonspecific T wave abnormality Abnormal ECG When compared with ECG of 09-MAR-2015 14:27, Nonspecific T wave abnormality now evident in Anterior leads Referred By: Dorie Shaw Electronically Signed By:ALEX FINCH
[2021-01-16] MEDS: dexAMETHasone sod phosphate 4 MG/ML VIAL 8 MG IVPUSH (14:52)
[2021-01-16] MEDS: ondansetron HCL 4 MG/2 ML VIAL IVPUSH (14:52)
[2021-01-16] MEDS: 0.9 % Sodium Chloride 1,000 ML 999 ML IVCONT (14:53)
[2021-01-16 15:22] LABS: MANUAL DIFF FLAG NO
[2021-01-16 15:23] LABS: Hematocrit 37.3 % (37-47); Hemoglobin 12.5 g/dl (12.0-16.0); Imm Gran Abs Auto 0.01 X10*3/uL (0.00-0.03); Imm Gran Pct Auto 0.3 % (0.0-0.4); Lymphocytes Absolute Auto 0.5 X10*3/uL (1.2-4.9); Lymphocytes Percent Auto 13.9 % (20-40); Mean Corpuscular HGB Conc 33.5 g/dl (31.0-35.0); Mean Corpuscular Hemoglobin 27.1 pg (27.0-33.0); Mean Corpuscular Volume 80.7 fL (80-98); Mean Platelet Volume 9.7 fL (9.4-12.3); Monocytes Absolute Auto 0.2 X10*3/uL (0.1-1.2); Monocytes Percent Auto 5.4 % (2-11); Neutrophils Absolute Auto 3.1 X10*3/uL (2.0-8.3); Neutrophils Percent Auto 80.4 % (45-73); Platelet Count 180 X10*3/uL (160-400); Red Blood Count 4.62 X10*6/uL (4.20-5.50); Red Cell Distribution Width 13.5 % (11.0-16.0); White Blood Count 3.9 X10*3/uL (4.8-10.8)
[2021-01-16 15:31] LABS: COVID-19 Test Positive (Negative)
[2021-01-16 15:35] VITALS: BP 135/65; PULSE 88; RESP 16; TEMP 38; O2SAT 94
[2021-01-16 15:39] LABS: Alanine Aminotransferase 38 U/L (0-31); Albumin Level 3.9 g/dL (3.5-5.0); Alkaline Phosphatase 70 U/L (39-117); Anion Gap 15 (12-20); Aspartate Amino Transferase 41 U/L (5-31); Bilirubin Direct 0.3 mg/dL (0.0-0.5); Bilirubin Total 0.5 mg/dL (0.0-1.0); Blood Urea Nitrogen 10 mg/dL (9-16); C Reactive Protein 5.39 mg/dL (< or = 0.50); Calcium 8.4 mg/dL (8.4-10.2); Carbon Dioxide 19 mmol/L (22-29); Chloride 106 mmol/L (96-108); Estimated Glomerular Filt Rate > 60; Glucose Random 114 mg/dL (60-115); Lactate Dehydrogenase 387 U/L (122-220); Lipase 46 U/L (8-78); Magnesium 1.8 mg/dL (1.6-2.6); Potassium 3.5 mmol/L (3.3-5.1); Sodium 136 mmol/L (135-145); Total Protein 6.7 g/dL (6.5-8.0)
[2021-01-16 15:42] LABS: Troponin-I High Sensitivity 8.3 ng/L (<3.5-17.0)
[2021-01-16 15:59] LABS: Ferritin 1172 ng/mL (10-250)
[2021-01-16 16:05] LABS: Procalcitonin 0.05 ng/mL
[2021-01-16] MEDS: Acetaminophen 325 MG TABLET 975 MG PO (16:58)
[2021-01-16 17:06] LABS: UPreg QC Valid YES; Urine Pregnancy NEGATIVE (NEGATIVE)
[2021-01-16 17:08] LABS: Appearance Urine CLEAR; Color Urine DK YELLOW; Glucose Urine UA NEG (NEG); Leukocyte Esterase Urine NEG (NEG); Nitrite Urine NEG (NEG); UACC Culture Trigger NO; Urine Blood NEG (NEG); Urine Ketones NEG (NEG); Urine Protein 1+ MG/DL (NEG-TRACE)
[2021-01-16 17:33] LABS: D Dimer 2200 NG/ML
--- NOTE | 2021-01-16 17:45 | PHA.MEDREC ---
Pharmacy Consult ? Medication Reconciliation Pharmacy has completed the medication reconciliation. Thanks Hakeem Ortiz Pharm. D
[2021-01-16 17:51] LABS: Erythrocyte Sedimentation Rate 16 MM/HR (0-20)
[2021-01-16 18:08] VITALS: BP 152/96; PULSE 86; RESP 16; TEMP 36.7; O2SAT 96
[2021-01-16 18:17] LABS: RBC Urine 0 /HPF (0); Squamous Epithelial Cell Urine 2+ /LPF; WBC Urine 0 /HPF (0-4)
[2021-01-16 18:18] LABS: Urine Talc Crystals 3+ /LPF
[2021-01-16 19:18] LABS: Troponin-I High Sensitivity 8.9 ng/L (<3.5-17.0)
[2021-01-16] MEDS: iohexoL 350 MG/ML 100 ML INFUS..BTL IV (19:31)
--- NOTE | 2021-01-16 20:12 | P.HPHOSP_ITS ---
History of Present Illness Date of Service: 01/16/21 Chief Complaint: Shortness of breath This is a 46-year-old female with no significant past medical history who presents to the hospital with persistent shortness of breath, cough, nausea vomiting and diarrhea secondary to COVID infection. Patient reports that she was diagnosed with COVID on January 10, but she continued to have worsening symptoms and now she is unable to keep any food down and has had persistent worsening symptoms. On arrival to the ED patient hemodynamically stable found to have O2 of 90% on room air, dropping to 88 on ambulation. Patient denies any urinary symptoms, no lower extremity edema, no numbness tingling or weakness. Other vitals on unremarkable Labs are significant for 3.9, AST of 41, ALT of 38, alk the H of 387, CRP of 5.39, patient had a D-dimer of [address] angiogram ordered which showed bilateral ground-glass pulmonary opacities, emboli involving the right upper middle and right lower lobe no evidence of heart strain. Patient will be admitted further management Review of Systems Review of Systems: Yes all other systems are reviewed and are negative PMFSH Pertinent family history: Denies any family history Surgical History (Updated 01/17/21 @ 05:31 by Kelly Torres MD) No significant past surgical history Social History Household Members: Family Housing: House Do you presently have visiting nurse or other home services: No Patient Tobacco Use Status: Never used Tobacco Smoked in Last 30 Days: No Use of substances other than those prescribed or required for medical reasons: No Currently Displaying Signs/Symptoms of Drug Intoxication Withdrawal: No Any prior treatment program specific to substance use: No Have you been hit, kicked, punched, or otherwise hurt by someone within the past year? If so, by whom?: No Do you feel safe in your current relationship?: Yes Is there a partner from a previous relationship who is making you feel unsafe now?: No Are you made to feel afraid or neglected: No Advance Directives: No Advance Directives Information Provided: No Advance Directives on File: No Advance Directives Date on File: 01/16/21 Do you have thoughts of harming others: None Do you have a plan to hurt others: No Plan Recently lost weight without trying: Yes How much weight loss: Unsure Eating poorly because of decreased appetite: Yes Nutrition screen score: 5 Nutrition Risks: Poor intake 0-25% >4 days Patient : No : No Poor oral hygiene: No service: No Current occupational status: disabled Meds Allergies Allergy/AdvReac Type Severity Reaction Status Date / Time sulfamethoxazole Allergy Unknown VOMITING Unverified 01/11/20 16:40 [From BACTRIM] trimethoprim [From BACTRIM] Allergy Unknown VOMITING Unverified 01/11/20 16:40 naproxen [NAPROXEN] AdvReac Intermediate NAUSEA & Unverified 01/11/20 16:40 VOMITING Active Medications: Current Medications Pharmacy Consult (Consult Rx Perform Med Rec) 1 each MISCELLANE ONCE PRN PRN Reason: Consult order Home Medications Medication Instructions Recorded Confirmed Last Taken Type buspirone 15 mg tablet 1 tab PO BID 01/16/21 01/16/21 01/15/21 History hydrocodone 5 mg-acetaminophen 325 1 tab PO DAILY PRN 01/16/21 01/16/21 Unknown History mg tablet multivitamin 1 tab PO DAILY 01/16/21 01/16/21 01/16/21 History norethindrone 1 mg-ethinyl 1 tab PO DAILY 01/16/21 01/16/21 01/15/21 History estradiol 20 mcg (21)-iron 75 mg (7) tablet (June05/15 ()) sertraline 100 mg tablet 1 tab PO DAILY 01/16/21 01/16/21 01/15/21 History tizanidine 2 mg tablet 1 tab PO Q OTHER DAY PRN 01/16/21 01/16/21 Unknown History Physical Exam Vital Signs and Narrative: Vital Signs: Last Vital Signs Temp 98.1 F 01/16/21 18:08 Pulse 86 01/16/21 18:08 Resp 16 01/16/21 18:08 BP 152/96 H 01/16/21 18:08 Pulse Ox 96 01/16/21 18:08 Oxygen Flow Rate 2 01/16/21 13:55 Body Mass Index 42.0 Const: General: cooperative and no acute distress Orientation/consciousness: patient oriented x3 Eyes: General: appearance normal, both eyes and all related structures Pupils: Equal, round and reactive pupils present Resp: Other: Crackles bilaterally Effort & Inspection: normal respiratory effort Cardio: Rate: regular rate Rhythm: regular rhythm GI: Palpation (GI): Soft to palpation Auscultation: normal bowel sounds Skin: General skin exam: no rashes or lesions noted Neuro: General: patient oriented x3 Cranial nerves: Yes Equal, round and reactive pupils present Cognition (Neuro): normal cognition Extrem: General: Yes normal to inspection and Yes no pedal edema Results Labs CBC and Chem 7: 01/16/21 15:17 01/16/21 15:17 Labs: Laboratory Results - last 24 hr 01/16/21 01/16/21 01/16/21 15:16 15:16 15:17 MCV MCH MCHC RDW Plt Count MPV Immature Gran % (Auto) Neut % (Auto) Lymph % (Auto) [place] % (Auto) Eos % (Auto) Baso % (Auto) Lymph # (Auto) [place] # (Auto) Eos # (Auto) Baso # (Auto) Abs Immat Gran (auto) Absolute Neuts (auto) Absolute Nucleated RBC Nucleated RBC % (auto) ESR D-Dimer Anion Gap 15 Estim Creat Clear Calc 125.0 Estimated GFR > 60 Random Glucose 114 Lactic Acid 1.0 Calcium 8.4 Magnesium 1.8 Ferritin Total Bilirubin 0.5 Direct Bilirubin 0.3 AST 41 H ALT 38 H Alkaline Phosphatase 70 Lactate Dehydrogenase 387 H Troponin I High Sens C-Reactive Protein 5.39 H Total Protein 6.7 Albumin 3.9 Lipase 46 Procalcitonin Urine Color Urine Appearance Urine pH Ur Specific [place] Urine Protein Urine Glucose (UA) Urine Ketones Urine Blood Urine Nitrite Ur Leukocyte Esterase Urine RBC Urine WBC Ur Squamous Epith Cells [place] Urine Bacteria Urine Test COVID-19 ([facility]) Positive A COVID-19 Clin Com See Note 01/16/21 01/16/21 01/16/21 15:17 15:17 15:17 MCV 80.7 MCH 27.1 MCHC 33.5 RDW 13.5 Plt Count 180 MPV 9.7 Immature Gran % (Auto) 0.3 Neut % (Auto) 80.4 H Lymph % (Auto) 13.9 L [place] % (Auto) 5.4 Eos % (Auto) 0.0 Baso % (Auto) 0.0 Lymph # (Auto) 0.5 L [place] # (Auto) 0.2 Eos # (Auto) 0.0 Baso # (Auto) 0.0 Abs Immat Gran (auto) 0.01 Absolute Neuts (auto) 3.1 Absolute Nucleated RBC 0.000 Nucleated RBC % (auto) 0.0 ESR 16 D-Dimer Anion Gap Estim Creat Clear Calc Estimated GFR Random Glucose Lactic Acid Calcium Magnesium Ferritin Total Bilirubin Direct Bilirubin AST ALT Alkaline Phosphatase Lactate Dehydrogenase Troponin I High Sens C-Reactive Protein Total Protein Albumin Lipase Procalcitonin 0.05 Urine Color Urine Appearance Urine pH Ur Specific [place] Urine Protein Urine Glucose (UA) Urine Ketones Urine Blood Urine Nitrite Ur Leukocyte Esterase Urine RBC Urine WBC Ur Squamous Epith Cells [place] Urine Bacteria Urine Test COVID-19 ([facility]) COVID-19 Clin Com 01/16/21 01/16/21 01/16/21 15:17 15:17 16:38 MCV MCH MCHC RDW Plt Count MPV Immature Gran % (Auto) Neut % (Auto) Lymph % (Auto) [place] % (Auto) Eos % (Auto) Baso % (Auto) Lymph # (Auto) [place] # (Auto) Eos # (Auto) Baso # (Auto) Abs Immat Gran (auto) Absolute Neuts (auto) Absolute Nucleated RBC Nucleated RBC % (auto) ESR D-Dimer 2200 Anion Gap Estim Creat Clear Calc Estimated GFR Random Glucose Lactic Acid Calcium Magnesium Ferritin 1172 H Total Bilirubin Direct Bilirubin AST ALT Alkaline Phosphatase Lactate Dehydrogenase Troponin I High Sens 8.3 C-Reactive Protein Total Protein Albumin Lipase Procalcitonin Urine Color Urine Appearance Urine pH Ur Specific [place] Urine Protein Urine Glucose (UA) Urine Ketones Urine Blood Urine Nitrite Ur Leukocyte Esterase Urine RBC Urine WBC Ur Squamous Epith Cells [place] Urine Bacteria Urine Test COVID-19 ([facility]) COVID-19 Clin Com 01/16/21 01/16/21 01/16/21 16:38 16:38 18:46 MCV MCH MCHC RDW Plt Count MPV Immature Gran % (Auto) Neut % (Auto) Lymph % (Auto) [place] % (Auto) Eos % (Auto) Baso % (Auto) Lymph # (Auto) [place] # (Auto) Eos # (Auto) Baso # (Auto) Abs Immat Gran (auto) Absolute Neuts (auto) Absolute Nucleated RBC Nucleated RBC % (auto) ESR D-Dimer Anion Gap Estim Creat Clear Calc Estimated GFR Random Glucose Lactic Acid Calcium Magnesium Ferritin Total Bilirubin Direct Bilirubin AST ALT Alkaline Phosphatase Lactate Dehydrogenase Troponin I High Sens 8.9 C-Reactive Protein Total Protein Albumin Lipase Procalcitonin Urine Color DK YELLOW Urine Appearance CLEAR Urine pH 6.0 Ur Specific [place] 1.010 Urine Protein 1+ H Urine Glucose (UA) NEG Urine Ketones NEG Urine Blood NEG Urine Nitrite NEG Ur Leukocyte Esterase NEG Urine RBC 0 Urine WBC 0 Ur Squamous Epith Cells 2+ [place] 3+ Urine Bacteria NONE Urine Test NEGATIVE COVID-19 ([facility]) COVID-19 Clin Com ECG Interpretation: Normal sinus rhythm No specific ST T-wave changes Imaging Radiologist's Impressions: Impressions Chest X-Ray 01/16/21 13:38 IMPRESSION: Bronchial wall thickening and patchy opacities in the lung bases of uncertain etiology. An atypical multifocal infection is not excluded. Correlate clinically and follow-up to ensure resolution. Chest CTA 01/16/21 17:36 IMPRESSION: * Patchy bilateral groundglass pulmonary opacities are present. Findings are consistent with Covid pneumonia. * There are emboli involving the right upper, middle and right lower lobes. However, no evidence of heart strain. * Patient has a large body habitus and there is chronic splenomegaly. The critical test result was discussed with WALTER York at 7:52 pm on 01/16/2021 and it was ascertained that the content and the importance of the findings was understood at the time of the direct communication. Assessment and Plan (1) Acute respiratory failure with hypoxia: Status: Acute (2) Pulmonary embolism: Status: Acute (3) Pneumonia due to 2019-nCoV: Status: Acute This is a 46-year-old female with no significant past medical history who presents to the hospital with complaints of persistent and worsening shortness of breath, cough, nausea vomiting diarrhea found to have COVID-19 pneumonia # acute hypoxic respiratory failure - most likely a combination of PE as well as COVID-19 pneumonia - continue supplemental oxygen - titrate oxygen off as tolerated - treat pulmonary emboli as well as pneumonia due to COVID as below # PE - most likely secondary to COVID-19 infection - patient started on Lovenox weight based - monitor # pneumonia due to COVID-19 - patient hypoxic - will start on dexamethasone 6 mg IV - monitor respiratory status DVT prophylaxis: Lovenox Quality Stroke Does the patient have a stroke diagnosis?: No VTE Prior VTE?: No VTE Risk Level:: Medical - moderate - high VTE Device Contraindication: Treatment Not Indicated VTE Drug Contraindication: N/A - Med Ordered
[2021-01-16 20:20] LABS: INTERNATIONAL NORM RATIO 1.1 (0.9-1.1); Prothrombin Time 12.3 SEC (9.9-13.0)
[2021-01-16 20:22] LABS: Partial Thromboplastin Time 29.5 SEC (24.1-38.0)
[2021-01-16 21:17] VITALS: BP 143/80; PULSE 68; RESP 22; TEMP 36.9; O2SAT 94
[2021-01-16] MEDS: Enoxaparin Sodium 120 MG/0.8 ML SYRINGE 105 MG SUBCUT (22:35)
--- NOTE | 2021-01-16 23:05 | MHC.CM.PN ---
CM met with admitted patient, bed assignment pending. IMM reviewed and signed per protocol 01/16/2021@2220.HCP reviewed, completed and signed. HCP/ Collins Marc ([phone]). Copies given. Uploaded into [employer] and [facility]. Pt is +COVID since 01/10/2021. Her and 4 children are covid positive, as are 2 grandchildren. Pt is not vaccinated. Pt lives with and 3 children. Has no DME, no services. D/C plan is home without services pending hospital course.May need RT evaluation prior to D/C . Pt to arrange transportation home. CM to follow for d/c needs.
[2021-01-16 23:36] VITALS: BMI 44.7
[2021-01-16 23:56] VITALS: BP 159/82; PULSE 62; RESP 18; TEMP 36.6; O2SAT 93
[2021-01-17] MEDS: busPIRone HCl 5 MG TABLET 15 MG PO ×3 (00:06→20:59)
[2021-01-17] MEDS: 0.9 % Sodium Chloride Flush 3 ML SYRINGE IVFLUSH ×4 (02:11→21:00)
[2021-01-17 04:00] VITALS: BP 134/79; PULSE 65; RESP 18; TEMP 36.4; O2SAT 94
[2021-01-17 05:31] VITALS: BMI 44.7
[2021-01-17 06:44] LABS: Hematocrit 38.5 % (37-47); Hemoglobin 12.8 g/dl (12.0-16.0); Imm Gran Abs Auto 0.01 X10*3/uL (0.00-0.03); Imm Gran Pct Auto 0.5 % (0.0-0.4); Lymphocytes Absolute Auto 0.8 X10*3/uL (1.2-4.9); Lymphocytes Percent Auto 38.4 % (20-40); MANUAL DIFF FLAG SCAN; Mean Corpuscular HGB Conc 33.2 g/dl (31.0-35.0); Mean Corpuscular Hemoglobin 27.1 pg (27.0-33.0); Mean Corpuscular Volume 81.6 fL (80-98); Mean Platelet Volume 9.5 fL (9.4-12.3); Monocytes Absolute Auto 0.3 X10*3/uL (0.1-1.2); Monocytes Percent Auto 12.3 % (2-11); Neutrophils Percent Auto 48.8 % (45-73); Platelet Count 176 X10*3/uL (160-400); Red Blood Count 4.72 X10*6/uL (4.20-5.50); Red Cell Distribution Width 13.5 % (11.0-16.0); SCAN SMEAR FLAG 1
[2021-01-17 06:57] LABS: Anion Gap 12 (12-20); Blood Urea Nitrogen 8 mg/dL (9-16); Calcium 8.4 mg/dL (8.4-10.2); Carbon Dioxide 23 mmol/L (22-29); Chloride 110 mmol/L (96-108); Creatinine Clr Calc Pharmacy 131.8; Estimated Glomerular Filt Rate > 60; Glucose Random 124 mg/dL (60-115); Potassium 3.8 mmol/L (3.3-5.1); Sodium 141 mmol/L (135-145)
[2021-01-17 07:34] LABS: SLIDE REVIEW VERIFIED
[2021-01-17 07:43] VITALS: BP 155/82; PULSE 64; RESP 18; TEMP 36.2; O2SAT 91
--- NOTE | 2021-01-17 10:15 | P.CDIC_ITS ---
CDI Concurrent Query Documentation Clarification: PHYSICIAN'S DOCUMENTATION REQUEST Date of Query: 01/17/21 1015 Patient Name: Elizabeth Marc Admit Date: 01/16/21 Dear Doctor, A review of the medical record indicates additional documentation may be needed. Please review below and update the documentation accordingly. Risk Factors/Clinical Indicators/Treatments Body mass index: 44.8 If possible, please provide an associated diagnosis related to the abnormal BMI, such as: BODY MASS INDEX: For a BMI >= 40: * Due to excess calories * Drug induced * Due to other cause * Severe or Morbid Obesity * Or other, undetermined Use of terms such as suspected, likely, concern for, or probable (associated with a specific diagnosis that is being evaluated, monitored, or treated as if it exists) are acceptable and can be coded in the inpatient setting, when documented at the time of discharge. Thank you, Mamta Hsieh [facility], CDIS Extension: [phone] Please use your independent medical judgment in providing your response. THIS QUERY IS PART OF THE PERMANENT MEDICAL RECORD Provider Response: Other Other Diagnosis: morbid obesty
[2021-01-17] MEDS: Enoxaparin Sodium 120 MG/0.8 ML SYRINGE 105 MG SUBCUT ×2 (10:46→21:00)
[2021-01-17] MEDS: dexAMETHasone sod phosphate 4 MG/ML VIAL 6 MG IVPUSH (10:47)
[2021-01-17] MEDS: Sertraline HCL 100 MG TABLET PO (10:48)
[2021-01-17] MEDS: Multivitamin TABLET 1 TAB PO (10:48)
[2021-01-17 11:14] VITALS: BP 139/73; PULSE 66; RESP 20; TEMP 36.6; O2SAT 92
--- NOTE | 2021-01-17 11:46 | MHC.CM.PN ---
Per ROUNDS discussion, Patient is not yet medically cleared for dc (IV Decadron, 2LO2,Still hypoxic with minimal exertion). Home is the goal for dc and CM will continue to follow for possible need to adjust the dc plan.
--- NOTE | 2021-01-17 13:36 | MHC.CLN ---
RE: CONSULT PT DOES NOT TRIGGER FOR SIGNIFICANT WT LOSS AT THIS TIME PT REPORTS DIARRHEA WITH POOR APPETITE WILL START ENSURE BID TO INCREASE KCALS
[2021-01-17 15:04] VITALS: BP 141/92; PULSE 76; RESP 20; TEMP 36.1; O2SAT 92
--- NOTE | 2021-01-17 15:05 | P.CNID_ITS ---
History of Present Illness Data of Consult Service Date: 01/17/21 Requesting physician: Naveed Franklin Primary Care Provider: Dayis Beckett MD HPI Reason for consult: COVID,PE She presents to hospital with shortness of breath and cough for 10 days ,with symptoms starting January 08. She has no fever or chills. She has PE,right lung. Review of Systems Review of Systems: Yes all other systems are reviewed and are negative PMFSH Family History Family history: reviewed and not pertinent Surgical History Surgical History No significant past surgical history Social History Social History Household Members: Family Housing: House Do you presently have visiting nurse or other home services: No Patient Tobacco Use Status: Never used Tobacco Smoked in Last 30 Days: No Use of substances other than those prescribed or required for medical reasons: No Currently Displaying Signs/Symptoms of Drug Intoxication Withdrawal: No Any prior treatment program specific to substance use: No Have you been hit, kicked, punched, or otherwise hurt by someone within the past year? If so, by whom?: No Do you feel safe in your current relationship?: Yes Is there a partner from a previous relationship who is making you feel unsafe now?: No Are you made to feel afraid or neglected: No Advance Directives: No Advance Directives Information Provided: No Advance Directives on File: No Advance Directives Date on File: 01/16/21 Do you have thoughts of harming others: None Do you have a plan to hurt others: No Plan Recently lost weight without trying: Yes How much weight loss: Unsure Eating poorly because of decreased appetite: Yes Nutrition screen score: 5 Nutrition Risks: Poor intake 0-25% >4 days Patient : No : No Poor oral hygiene: No service: No Current occupational status: disabled Meds Allergies Allergy/AdvReac Type Severity Reaction Status Date / Time sulfamethoxazole Allergy Unknown VOMITING Unverified 01/11/20 16:40 [From BACTRIM] trimethoprim [From BACTRIM] Allergy Unknown VOMITING Unverified 01/11/20 16:40 naproxen [NAPROXEN] AdvReac Intermediate NAUSEA & Unverified 01/11/20 16:40 VOMITING Active Medications: Current Medications Acetaminophen (Acetaminophen 325 Mg Tablet) 650 mg PO Q6H PRN PRN Reason: Pain, Mild (Pain Scale 1-3) Hydrocodone Bitart/Acetaminophen (Hydrocodone Bit/Acetam 5/325 Tablet) 1 tab PO DAILY PRN PRN Reason: pain Buspirone HCl (Buspirone Hcl 5 Mg Tablet) 15 mg PO BID [facility] Last Admin: 01/17/21 10:47 Dose: 15 mg Documented by: Dexamethasone Sodium Phosphate (Dexamethasone Sod Phosphate 4 Mg/Ml Vial) 6 mg IVPUSH DAILY [facility] Last Admin: 01/17/21 10:47 Dose: 6 mg Documented by: Docusate Sodium (Docusate Sodium 100 Mg Capsule) 100 mg PO DAILY PRN PRN Reason: Constipation Enoxaparin Sodium (Enoxaparin Sodium 120 Mg/0.8 Ml Syringe) 105 mg SUBCUT Q12H [facility] Last Admin: 01/17/21 10:46 Dose: 105 mg Documented by: Multivitamins/Vitamin C (Multivitamin Tablet) 1 tab PO DAILY [facility] Last Admin: 01/17/21 10:48 Dose: 1 tab Documented by: Non-Formulary Medication (Norethindrone-E.Estradiol-Iron [05/15 (28)]) 1 tab PO DAILY [facility] Ondansetron HCl (Ondansetron Hcl 4 Mg/2 Ml Vial) 4 mg IVPUSH Q8H PRN PRN Reason: Nausea and Vomiting Pharmacy Consult (Consult Rx Perform Med Rec) 1 each MISCELLANE ONCE PRN PRN Reason: Consult order Sertraline HCl (Sertraline Hcl 100 Mg Tablet) 100 mg PO DAILY [facility] Last Admin: 01/17/21 10:48 Dose: 100 mg Documented by: Sodium Chloride (0.9 % Sodium Chloride Flush 3 Ml Syringe) 3 ml IVFLUSH QSHIFT [facility] Last Admin: 01/17/21 10:48 Dose: 3 ml Documented by: Tizanidine HCl (Tizanidine Hcl 4 Mg Tablet) 2 mg PO Q48H PRN PRN Reason: Spasms Home Medications Medication Instructions Recorded Confirmed Last Taken Type buspirone 15 mg tablet 1 tab PO BID 01/16/21 01/16/21 01/15/21 History hydrocodone 5 mg-acetaminophen 325 1 tab PO DAILY PRN 01/16/21 01/16/21 Unknown History mg tablet multivitamin 1 tab PO DAILY 01/16/21 01/16/21 01/16/21 History norethindrone 1 mg-ethinyl 1 tab PO DAILY 01/16/21 01/16/21 01/15/21 History estradiol 20 mcg (21)-iron 75 mg (7) tablet (05/15 (28)) sertraline 100 mg tablet 1 tab PO DAILY 01/16/21 01/16/21 01/15/21 History tizanidine 2 mg tablet 1 tab PO Q OTHER DAY PRN 01/16/21 01/16/21 Unknown History Physical Exam Vital Signs: Vital Signs: Last Vital Signs Temp 96.9 F 01/17/21 15:04 Pulse 76 01/17/21 15:04 Resp 20 01/17/21 15:04 BP 141/92 H 01/17/21 15:04 Pulse Ox 92 01/17/21 15:04 Oxygen Flow Rate 2 01/16/21 13:55 Body Mass Index 44.7 Const: General: cooperative Eyes: General: appearance normal, both eyes and all related structures Resp: Other: on 1-2 l Effort & Inspection: able to speak in complete sentences Cardio: Rate: regular rate Rhythm: regular rhythm GI: Palpation (GI): nontender Extrem: General: Yes normal to inspection Results Labs CBC & Chem 7: 01/17/21 06:16 01/17/21 06:16 Labs: Short CBC 01/16/21 01/17/21 Range/Units 15:17 06:16 WBC 3.9 L 2.0 L (4.8-10.8) X10*3/uL Hgb 12.5 12.8 (12.0-16.0) g/dl Hct 37.3 38.5 (37-47) % Plt Count 180 176 (160-400) X10*3/uL BMP 01/16/21 01/17/21 15:17 06:16 Sodium 136 141 Potassium 3.5 3.8 Chloride 106 110 H Carbon Dioxide 19 L 23 BUN 10 8 L Creatinine 0.63 0.62 Calcium 8.4 8.4 Liver Function 01/16/21 Range/Units 15:17 Total Bilirubin 0.5 (0.0-1.0) mg/dL Direct Bilirubin 0.3 (0.0-0.5) mg/dL AST 41 H (5-31) U/L ALT 38 H (0-31) U/L Alkaline Phosphatase 70 (39-117) U/L Albumin 3.9 (3.5-5.0) g/dL Urine 01/16/21 Range/Units 16:38 Urine Color DK YELLOW Urine Appearance CLEAR Urine pH 6.0 (5.0-8.0) Ur Specific [place] 1.010 (1.005-1.025) Urine Protein 1+ H (NEG-TRACE) MG/DL Urine Glucose (UA) NEG (NEG) MG/DL Assessment and Plan (1) COVID-19: Status: Acute She has symptoms 10 days COVID Continue oxygen Continue steroids Continue treatment for PE It is too long duration of symptoms for Remdesivir so wont give (2) Acute respiratory failure with hypoxia: Status: Acute (3) Pulmonary embolism: Status: Acute
[2021-01-17 16:06] LABS: Glucose, Whole Blood 149 mg/dL (60-115)
--- NOTE | 2021-01-17 17:19 | P.PNIM_ITS ---
Subjective Subjective Date of Service: 01/17/21 Interval History: covid pneumonia Review of Systems Patient gets short of breath with mild movements, has cough has some diarrahe Denies any new complaint of chest pain or abdominal pain or fever or chills or nausea or vomiting Denies any weakness or numbness. Physical Exam Vital Signs: Vital Signs: Last Vital Signs Temp 96.9 F 01/17/21 15:04 Pulse 76 01/17/21 15:04 Resp 20 01/17/21 15:04 BP 141/92 H 01/17/21 15:04 Pulse Ox 92 01/17/21 15:04 Oxygen Flow Rate 2 01/16/21 13:55 Body Mass Index 44.7 Appearance: Alert.? Oriented X3.? not in distress.? Eyes: Pupils equal, round and reactive to light.? Sclera nonicteric.? ENT: Pharynx normal.? Moist mucous membranes. cvs: rrr, [id number] , no murmur res: dimished at bases , few rhonchii abd: no rebound or guarding ,nt, bs present. ext pulses present , no cyanosis ,Gait well balanced well coordinated. neuro: axo3 , nonfocal. Objective Data Active Medications Acetaminophen (Acetaminophen 325 Mg Tablet) 650 mg PO Q6H PRN PRN Reason: Pain, Mild (Pain Scale 1-3) Hydrocodone Bitart/Acetaminophen (Hydrocodone Bit/Acetam 5/325 Tablet) 1 tab PO DAILY PRN PRN Reason: pain Buspirone HCl (Buspirone Hcl 5 Mg Tablet) 15 mg PO BID [facility] Last Admin: 01/17/21 10:47 Dose: 15 mg Documented by: MATEUSZ Dexamethasone Sodium Phosphate (Dexamethasone Sod Phosphate 4 Mg/Ml Vial) 6 mg IVPUSH DAILY [facility] Last Admin: 01/17/21 10:47 Dose: 6 mg Documented by: MATEUSZ Docusate Sodium (Docusate Sodium 100 Mg Capsule) 100 mg PO DAILY PRN PRN Reason: Constipation Enoxaparin Sodium (Enoxaparin Sodium 120 Mg/0.8 Ml Syringe) 105 mg SUBCUT Q12H [facility] Last Admin: 01/17/21 10:46 Dose: 105 mg Documented by: MATEUSZ Multivitamins/Vitamin C (Multivitamin Tablet) 1 tab PO DAILY [facility] Last Admin: 01/17/21 10:48 Dose: 1 tab Documented by: MATEUSZ Non-Formulary Medication (Norethindrone-E.Estradiol-Iron [05/15 (28)]) 1 tab PO DAILY [facility] Ondansetron HCl (Ondansetron Hcl 4 Mg/2 Ml Vial) 4 mg IVPUSH Q8H PRN PRN Reason: Nausea and Vomiting Pharmacy Consult (Consult Rx Perform Med Rec) 1 each MISCELLANE ONCE PRN PRN Reason: Consult order Sertraline HCl (Sertraline Hcl 100 Mg Tablet) 100 mg PO DAILY [facility] Last Admin: 01/17/21 10:48 Dose: 100 mg Documented by: MATEUSZ Sodium Chloride (0.9 % Sodium Chloride Flush 3 Ml Syringe) 3 ml IVFLUSH QSHIFT [facility] Last Admin: 01/17/21 10:48 Dose: 3 ml Documented by: MATEUSZ Tizanidine HCl (Tizanidine Hcl 4 Mg Tablet) 2 mg PO Q48H PRN PRN Reason: Spasms Labs CBC & Chem 7: 01/17/21 06:16 01/17/21 06:16 Labs: Laboratory Results - last 24 hr 01/16/21 01/16/21 01/16/21 15:17 16:38 16:38 MCV MCH MCHC RDW Plt Count MPV Immature Gran % (Auto) Neut % (Auto) Lymph % (Auto) [place] % (Auto) Eos % (Auto) Baso % (Auto) Lymph # (Auto) [place] # (Auto) Eos # (Auto) Baso # (Auto) Abs Immat Gran (auto) Absolute Neuts (auto) Absolute Nucleated RBC Nucleated RBC % (auto) Smear Tech's Comments Smear Path Review ESR 16 PT 12.3 INR 1.1 APTT 29.5 D-Dimer 2200 Anion Gap Estim Creat Clear Calc Estimated GFR POC Glucose Random Glucose Calcium Troponin I High Sens Urine RBC 0 Urine WBC 0 Ur Squamous Epith Cells 2+ Talc Crystals 3+ Urine Bacteria NONE 01/16/21 01/17/21 01/17/21 18:46 06:16 06:16 MCV 81.6 MCH 27.1 MCHC 33.2 RDW 13.5 Plt Count 176 MPV 9.5 Immature Gran % (Auto) 0.5 H Neut % (Auto) 48.8 Lymph % (Auto) 38.4 [place] % (Auto) 12.3 H Eos % (Auto) 0.0 Baso % (Auto) 0.0 Lymph # (Auto) 0.8 L [place] # (Auto) 0.3 Eos # (Auto) 0.0 Baso # (Auto) 0.0 Abs Immat Gran (auto) 0.01 Absolute Neuts (auto) 1.0 L Absolute Nucleated RBC 0.000 Nucleated RBC % (auto) 0.0 Smear Tech's Comments VERIFIED Smear Path Review SEE NOTE ESR PT INR APTT D-Dimer Anion Gap 12 Estim Creat Clear Calc 131.8 Estimated GFR > 60 POC Glucose Random Glucose 124 H Calcium 8.4 Troponin I High Sens 8.9 Urine RBC Urine WBC Ur Squamous Epith Cells Talc Crystals Urine Bacteria 01/17/21 15:54 MCV MCH MCHC RDW Plt Count MPV Immature Gran % (Auto) Neut % (Auto) Lymph % (Auto) [place] % (Auto) Eos % (Auto) Baso % (Auto) Lymph # (Auto) [place] # (Auto) Eos # (Auto) Baso # (Auto) Abs Immat Gran (auto) Absolute Neuts (auto) Absolute Nucleated RBC Nucleated RBC % (auto) Smear Tech's Comments Smear Path Review ESR PT INR APTT D-Dimer Anion Gap Estim Creat Clear Calc Estimated GFR POC Glucose 149 H Random Glucose Calcium Troponin I High Sens Urine RBC Urine WBC Ur Squamous Epith Cells Talc Crystals Urine Bacteria Assessment and Plan (1) COVID-19: Status: Acute (2) Acute respiratory failure with hypoxia: Status: Acute (3) Pulmonary embolism: Status: Acute Assessment and Plan: 46-year-old female with no significant past medical history who presents to the hospital with complaints of persistent and worsening shortness of breath, cough, nausea vomiting diarrhea found to have COVID-19 pneumonia 1. acute hypoxic respiratory failure- most likely a combination of PE as well as COVID-19 pneumonia continue supplemental oxygen,titrate oxygen off as tolerated, dexamethasone treat pulmonary emboli as well as pneumonia due to COVID as below 2. PE - most likely secondary to COVID-19 infection - patient started on Lovenox weight based - monitor 3. pneumonia due to COVID-19 - patient hypoxic - will start on dexamethasone 6 mg IV - monitor respiratory status 4. Morbid obesity: Encouraged to lose weight. Outpatient bariatric follow-up. Quality Stroke Does the patient have a stroke diagnosis?: No VTE Prior VTE?: No VTE Risk Level:: Medical - moderate - high VTE Device Contraindication: Treatment Not Indicated VTE Drug Contraindication: N/A - Med Ordered
[2021-01-17 19:05] VITALS: BP 161/91; PULSE 74; RESP 20; TEMP 36.3; O2SAT 92
[2021-01-17 19:55] LABS: Glucose, Whole Blood 159 mg/dL (60-115)
[2021-01-17 23:05] VITALS: BP 170/86; PULSE 71; RESP 20; TEMP 36; O2SAT 90
[2021-01-18 03:41] VITALS: BP 178/91; PULSE 80; RESP 17; TEMP 37.8; O2SAT 94
[2021-01-18] MEDS: Acetaminophen 325 MG TABLET 650 MG PO (06:40)
[2021-01-18 07:48] LABS: Glucose, Whole Blood 97 mg/dL (60-115)
[2021-01-18 08:00] VITALS: BP 158/88; PULSE 81; RESP 20; TEMP 36.9; O2SAT 92
[2021-01-18] MEDS: Enoxaparin Sodium 120 MG/0.8 ML SYRINGE 105 MG SUBCUT ×2 (09:11→20:32)
[2021-01-18] MEDS: Sertraline HCL 100 MG TABLET PO (09:12)
[2021-01-18] MEDS: busPIRone HCl 5 MG TABLET 15 MG PO ×2 (09:12→20:32)
[2021-01-18] MEDS: dexAMETHasone sod phosphate 4 MG/ML VIAL 6 MG IVPUSH (09:12)
[2021-01-18] MEDS: 0.9 % Sodium Chloride Flush 3 ML SYRINGE IVFLUSH ×3 (09:12→20:32)
[2021-01-18] MEDS: Multivitamin TABLET 1 TAB PO (09:12)
[2021-01-18 11:41] LABS: Glucose, Whole Blood 117 mg/dL (60-115)
[2021-01-18 11:57] VITALS: BP 142/86; PULSE 80; RESP 20; TEMP 36.4; O2SAT 91
--- NOTE | 2021-01-18 14:09 | HO.PM.IMPN ---
Subjective Subjective Date of Service: 01/18/21 Interval History: covid pneumonia Review of Systems still sob but could able to speak and answer more . Physical Exam Vital Signs: Vital Signs: Last Vital Signs Temp 97.5 F 01/18/21 11:57 Pulse 80 01/18/21 11:57 Resp 20 01/18/21 11:57 BP 142/86 H 01/18/21 11:57 Pulse Ox 91 L 01/18/21 11:57 Oxygen Flow Rate 2 01/16/21 13:55 Body Mass Index 44.7 ? Appearance: Alert.? Oriented X3.? not in distress.? Eyes: Pupils equal, round and reactive to light.? Sclera nonicteric.? ENT: Pharynx normal.? Moist mucous membranes. cvs: rrr, [id number] , no murmur res: air entry seems improving, slightly diminshed at bases. abd: no rebound or guarding ,nt, bs present. ext pulses present , no cyanosis ,Gait well balanced well coordinated. neuro: axo3 , nonfocal Objective Data Active Medications Acetaminophen (Acetaminophen 325 Mg Tablet) 650 mg PO Q6H PRN PRN Reason: Pain, Mild (Pain Scale 1-3) Last Admin: 01/18/21 06:40 Dose: 650 mg Documented by: ANTNIKO Hydrocodone Bitart/Acetaminophen (Hydrocodone Bit/Acetam 5/325 Tablet) 1 tab PO DAILY PRN PRN Reason: pain Buspirone HCl (Buspirone Hcl 5 Mg Tablet) 15 mg PO BID [facility] Last Admin: 01/18/21 09:12 Dose: 15 mg Documented by: BRITTANY Dexamethasone Sodium Phosphate (Dexamethasone Sod Phosphate 4 Mg/Ml Vial) 6 mg IVPUSH DAILY [facility] Last Admin: 01/18/21 09:12 Dose: 6 mg Documented by: BRITTANY Docusate Sodium (Docusate Sodium 100 Mg Capsule) 100 mg PO DAILY PRN PRN Reason: Constipation Enoxaparin Sodium (Enoxaparin Sodium 120 Mg/0.8 Ml Syringe) 105 mg SUBCUT Q12H [facility] Last Admin: 01/18/21 09:11 Dose: 105 mg Documented by: BRITTANY Multivitamins/Vitamin C (Multivitamin Tablet) 1 tab PO DAILY [facility] Last Admin: 01/18/21 09:12 Dose: 1 tab Documented by: BRITTANY Non-Formulary Medication (Norethindrone-E.Estradiol-Iron [05/15 (28)]) 1 tab PO DAILY [facility] Ondansetron HCl (Ondansetron Hcl 4 Mg/2 Ml Vial) 4 mg IVPUSH Q8H PRN PRN Reason: Nausea and Vomiting Pharmacy Consult (Consult Rx Perform Med Rec) 1 each MISCELLANE ONCE PRN PRN Reason: Consult order Sertraline HCl (Sertraline Hcl 100 Mg Tablet) 100 mg PO DAILY [facility] Last Admin: 01/18/21 09:12 Dose: 100 mg Documented by: BRITTANY Sodium Chloride (0.9 % Sodium Chloride Flush 3 Ml Syringe) 3 ml IVFLUSH QSHIFT [facility] Last Admin: 01/18/21 09:12 Dose: 3 ml Documented by: BRITTANY Tizanidine HCl (Tizanidine Hcl 4 Mg Tablet) 2 mg PO Q48H PRN PRN Reason: Spasms Labs CBC & Chem 7: 01/17/21 06:16 01/17/21 06:16 Labs: Laboratory Results - last 24 hr 01/17/21 01/17/21 01/17/21 06:16 15:54 19:44 Smear Path Review SEE NOTE POC Glucose 149 H 159 H 01/18/21 01/18/21 07:38 11:37 Smear Path Review POC Glucose 97 117 H Microbiology Microbiology Results: Microbiology 01/16/21 15:16 Blood Culture - Preliminary Blood - Venous Prelim: GPC Gram Stain only 01/16/21 15:16 Blood Culture - Preliminary Blood - Venous No growth after 24 hours. Assessment and Plan (1) COVID-19: Status: Acute (2) Acute respiratory failure with hypoxia: Status: Acute Assessment and Plan: 46-year-old female with no significant past medical history who presents to the hospital with complaints of persistent and worsening shortness of breath, cough, nausea vomiting diarrhea found to have COVID-19 pneumonia 1. acute hypoxic respiratory failure- most likely a combination of PE as well as COVID-19 pneumonia still sob with minimal activity continue taper oxygen,titrate oxygen off as tolerated, dexamethasone ?treat pulmonary emboli as well as pneumonia due to COVID as below 2. PE-. An embolism of the right upper lobe pulmonary artery extends into the apical branch. A subsegmental embolism is present in the right middle lobe. A right lower lobe embolism has components involving the proximal branches to the lateral and posterior basilar segments. trops neg on admission - most likely secondary to COVID-19 infection - patient started on Lovenox weight based - monitor 3. pneumonia due to COVID-19 - patient hypoxic - will start on dexamethasone 6 mg IV - monitor respiratory status 4. Morbid obesity:? Encouraged to lose weight. Outpatient bariatric follow-up. Quality Stroke Does the patient have a stroke diagnosis?: No VTE Prior VTE?: No VTE Risk Level:: Medical - moderate - high VTE Device Contraindication: Treatment Not Indicated VTE Drug Contraindication: N/A - Med Ordered
[2021-01-18 15:38] VITALS: BP 143/72; PULSE 76; RESP 18; TEMP 36.9; O2SAT 91
[2021-01-18 19:43] VITALS: BP 166/86; PULSE 74; RESP 18; TEMP 37.1; O2SAT 90
[2021-01-18 20:34] LABS: Glucose, Whole Blood 111 mg/dL (60-115)
[2021-01-18 23:35] VITALS: BP 168/86; PULSE 70; RESP 18; TEMP 36.1; O2SAT 91
[2021-01-19 03:10] VITALS: BP 148/73; PULSE 72; RESP 18; TEMP 36.1; O2SAT 91
[2021-01-19 06:00] VITALS: BMI 44.8
[2021-01-19 07:29] LABS: Glucose, Whole Blood 77 mg/dL (60-115)
[2021-01-19 07:45] VITALS: BP 127/64; PULSE 80; RESP 22; TEMP 36.6; O2SAT 91
--- NOTE | 2021-01-19 08:18 | HO.PM.IMPN ---
Subjective Subjective Date of Service: 01/19/21 Interval History: covid ppna, pulm embolism Review of Systems still short of breath on exertion but at rest seems comfortable with oxygen. Denies any chest pain or abdominal pain or fever or chills Physical Exam Vital Signs: Vital Signs: Last Vital Signs Temp 97.8 F 01/19/21 07:45 Pulse 80 01/19/21 07:45 Resp 22 H 01/19/21 07:45 BP 127/64 01/19/21 07:45 Pulse Ox 91 L 01/19/21 07:45 Oxygen Flow Rate 2 01/16/21 13:55 Body Mass Index 44.8 Appearance: Alert.? Oriented X3.? not in distress.? Eyes: Pupils equal, eomi ENT: Pharynx normal.? Moist mucous membranes. cvs: rrr, [id number] , no murmur res: air entry seems improving, slightly diminshed at bases. abd: no rebound or guarding ,nt, bs present. ext pulses present , no cyanosis ,Gait well balanced well coordinated. neuro: axo3 , nonfocal Objective Data Active Medications Acetaminophen (Acetaminophen 325 Mg Tablet) 650 mg PO Q6H PRN PRN Reason: Pain, Mild (Pain Scale 1-3) Last Admin: 01/18/21 06:40 Dose: 650 mg Documented by: CLINTON Hydrocodone Bitart/Acetaminophen (Hydrocodone Bit/Acetam 5/325 Tablet) 1 tab PO DAILY PRN PRN Reason: pain Buspirone HCl (Buspirone Hcl 5 Mg Tablet) 15 mg PO BID [facility] Last Admin: 01/18/21 20:32 Dose: 15 mg Documented by: GAMALIELOIC Dexamethasone Sodium Phosphate (Dexamethasone Sod Phosphate 4 Mg/Ml Vial) 6 mg IVPUSH DAILY [facility] Last Admin: 01/18/21 09:12 Dose: 6 mg Documented by: MORRIA Docusate Sodium (Docusate Sodium 100 Mg Capsule) 100 mg PO DAILY PRN PRN Reason: Constipation Enoxaparin Sodium (Enoxaparin Sodium 120 Mg/0.8 Ml Syringe) 105 mg SUBCUT Q12H [facility] Last Admin: 01/18/21 20:32 Dose: 105 mg Documented by: ANTOIC Multivitamins/Vitamin C (Multivitamin Tablet) 1 tab PO DAILY [facility] Last Admin: 01/18/21 09:12 Dose: 1 tab Documented by: BRITTANY Non-Formulary Medication (Norethindrone-E.Estradiol-Iron [05/15 (28)]) 1 tab PO DAILY [facility] Ondansetron HCl (Ondansetron Hcl 4 Mg/2 Ml Vial) 4 mg IVPUSH Q8H PRN PRN Reason: Nausea and Vomiting Pharmacy Consult (Consult Rx Perform Med Rec) 1 each MISCELLANE ONCE PRN PRN Reason: Consult order Sertraline HCl (Sertraline Hcl 100 Mg Tablet) 100 mg PO DAILY [facility] Last Admin: 01/18/21 09:12 Dose: 100 mg Documented by: BRITTANY Sodium Chloride (0.9 % Sodium Chloride Flush 3 Ml Syringe) 3 ml IVFLUSH QSHIFT [facility] Last Admin: 01/18/21 20:32 Dose: 3 ml Documented by: ANTOIC Tizanidine HCl (Tizanidine Hcl 4 Mg Tablet) 2 mg PO Q48H PRN PRN Reason: Spasms Labs CBC & Chem 7: 01/17/21 06:16 01/17/21 06:16 Labs: Laboratory Results - last 24 hr 01/18/21 01/18/21 01/19/21 11:37 20:20 07:11 POC Glucose 117 H 111 77 Microbiology Microbiology Results: Microbiology 01/16/21 15:16 Blood Culture - Preliminary Blood - Venous No growth after 48 hours. 01/16/21 15:16 Blood Culture - Preliminary Blood - Venous Prelim: GPC Gram Stain only Assessment and Plan (1) COVID-19: Status: Acute (2) Pulmonary embolism: Status: Acute Assessment and Plan: 46-year-old female with no significant past medical history who presents to the hospital with complaints of persistent and worsening shortness of breath, cough, nausea vomiting diarrhea found to have COVID-19 pneumonia 1. acute hypoxic respiratory failure- most likely a combination of PE as well as COVID-19 pneumonia still sob with minimal activity continue taper? oxygen,titrate oxygen off as tolerated, dexamethasone ?treat pulmonary emboli as well as pneumonia due to COVID as below 2. PE-. An embolism of the right upper lobe pulmonary artery extends into the apical branch. A subsegmental embolism is present in the right middle lobe. A right lower lobe embolism has components involving the proximal branches to the lateral and posterior basilar segments. trops neg on admission - most likely secondary to COVID-19 infection on Lovenox weight based trops neg , will add bnp 3. pneumonia due to COVID-19 - patient hypoxic - will start on dexamethasone 6 mg IV - monitor respiratory status 4. Morbid obesity:? Encouraged to lose weight. Outpatient bariatric follow-up. Quality Stroke Does the patient have a stroke diagnosis?: No VTE Prior VTE?: No VTE Risk Level:: Medical - moderate - high VTE Device Contraindication: Treatment Not Indicated VTE Drug Contraindication: N/A - Med Ordered
[2021-01-19] MEDS: Acetaminophen 325 MG TABLET 650 MG PO (08:19)
[2021-01-19] MEDS: Multivitamin TABLET 1 TAB PO (08:19)
[2021-01-19] MEDS: Sertraline HCL 100 MG TABLET PO (08:19)
[2021-01-19] MEDS: dexAMETHasone sod phosphate 4 MG/ML VIAL 6 MG IVPUSH (08:19)
[2021-01-19] MEDS: 0.9 % Sodium Chloride Flush 3 ML SYRINGE IVFLUSH ×3 (08:19→20:23)
[2021-01-19] MEDS: busPIRone HCl 5 MG TABLET 15 MG PO ×2 (08:19→20:20)
[2021-01-19] MEDS: Enoxaparin Sodium 120 MG/0.8 ML SYRINGE 105 MG SUBCUT ×2 (08:37→20:20)
[2021-01-19 09:00] VITALS: BMI 44.3
--- NOTE | 2021-01-19 10:04 | MHC.CM.PN ---
indicates patient remains SOB at this time and is not stable for D/C. CM to follow.
[2021-01-19 11:12] VITALS: BP 147/80; PULSE 73; RESP 20; TEMP 36.6; O2SAT 94
[2021-01-19 11:15] LABS: Glucose, Whole Blood 108 mg/dL (60-115)
[2021-01-19 15:43] VITALS: BP 157/77; PULSE 70; RESP 18; TEMP 36.5; O2SAT 93
[2021-01-19 16:11] LABS: Glucose, Whole Blood 140 mg/dL (60-115)
[2021-01-19 16:34] LABS: B Type Natriuretic Peptide 34 pg/mL (<100)
[2021-01-19 19:32] VITALS: BP 185/80; PULSE 77; RESP 18; TEMP 36.8; O2SAT 92
[2021-01-19 20:19] LABS: Glucose, Whole Blood 108 mg/dL (60-115)
[2021-01-19 22:56] VITALS: BP 179/96; PULSE 65; RESP 18; TEMP 36.7; O2SAT 92
[2021-01-20] VITALS (7 sets, daily range): BP systolic 160–174; BP diastolic 73–88; PULSE 61–78; RESP 18–20; TEMP 36.1–37.1; O2SAT 90–96; BMI 44.3
[2021-01-20] MEDS: dexAMETHasone sod phosphate 4 MG/ML VIAL 6 MG IVPUSH (09:07)
[2021-01-20] MEDS: amLODIPine Besylate 2.5 MG TABLET PO (09:07)
[2021-01-20] MEDS: busPIRone HCl 5 MG TABLET 15 MG PO ×2 (09:07→20:30)
[2021-01-20] MEDS: Sertraline HCL 100 MG TABLET PO (09:08)
[2021-01-20] MEDS: 0.9 % Sodium Chloride Flush 3 ML SYRINGE IVFLUSH ×3 (09:08→20:31)
[2021-01-20] MEDS: Enoxaparin Sodium 120 MG/0.8 ML SYRINGE 105 MG SUBCUT ×2 (09:08→20:31)
[2021-01-20] MEDS: Multivitamin TABLET 1 TAB PO (09:08)
--- NOTE | 2021-01-20 09:18 | CA_ITS ---
Transthoracic Echocardiogram Patient (Last, First, Middle): Elizabeth Marc, Gender: Female Date of : 1975 Age: 46 Procedure Date: 01/20/2021 Procedure Type: Transthoracic Echocardiogram Location: [facility] [place] Height: 157.48 cm Weight: 109.77 kg BSA: 2.07 m2 Heart Rate: bpm BP: 174 / 88 mmHg Lye Bath Operator: Referring MD: Naveed Franklin MD Symptoms: has right sided pulm embolism /excersional dyspnea-? starin Study Quality: Good ECG Rhythm: Sinus Conclusions: - The left ventricular systolic function is normal. The visually estimated ejection fraction is between 60-65%. - No obvious valvular pathology seen on this study. - Normal right ventricular cavity size and systolic function. - The pulmonary artery systolic pressure is normal. Findings Left Ventricle Normal left ventricular cavity size. There is mildly increased left ventricular wall thickness. The left ventricular systolic function is normal. The visually estimated ejection fraction is between 60-65%. There is no evidence of regional wall motion abnormalities. Diastolic function is normal for age. Right Ventricle Normal right ventricular cavity size and systolic function. Atria Both atria are normal in size. Aortic Valve There is a normal trileaflet aortic valve. There is no aortic valve stenosis. There is no aortic valve regurgitation. Mitral Valve The mitral valve appears normal. There is trace mitral valve regurgitation. There is no mitral valve stenosis. Pulmonic Valve The pulmonic valve was not well visualized. Tricuspid Valve Normal tricuspid valve structure. There is trace tricuspid valve regurgitation. The pulmonary artery systolic pressure is normal. Great Vessels The aortic annulus, sinuses of valsalva, and asc aorta are normal in size. Venous The inferior vena cava is normal in size and collapses greater than 50% with inspiration. Pericardium/Pleural There is no evidence of pericardial effusion. Prior Study Comparison No prior study available for comparison. Recommendations, Care & Conclusions No obvious valvular pathology seen on this study. Measurements 2D Linear Measurements IVSd: 1.14 0.6-0.9/0.6-1.0 cm LVIDd: 4.40 3.9-5.3/4.2-5.9 cm LVIDd Index: 2.13 2.4-3.2/2.2-3.1 cm/m2 LVIDs: 2.55 2.0-3.6 cm LVPWd: 1.10 0.7-1.1 cm Ao Root: 2.50 2.1-3.5 cm LA Diam: 3.80 2.7-3.8/3.0-4.0 cm LAIDs Index: 1.84 1.5-2.3 cm/m2 LV Mass: 215.87 67-162/88-224 g LV Mass Index: 104.29 43-95/49-115 g/m2 LVOT Diam: 2.00 3.0+(-)1.3 cm Mitral Valve MV Pk E: 0.97 MV PK A: 0.67 MV Decel Time: 213.00 E/A: 1.50 E'Lateral: 12.10 E'Medial: 10.20 E/E' Med: 9.50 E/E' Lat: 8.00 PHT: 62.00 MVA PHT: 3.55 Decel Dukes: 4.57 Aortic Valve AoV Pk Hermes: 1.48 AoV Mn Hermes: 0.91 AoV VTI: 0.33 AoV Pk Grad: 9.00 Aov Mn Grad: 4.00 RANDY Cont.VTI: 2.29 LVOT LVOT Pk Hermes: 1.11 LVOT Mn Hermes: 0.67 LVOT VTI: 0.24 LVOT Pk Grad: 5.00 LVOT Mn Grad: 2.00 LVOT Diam: 2.00 LVOT Area: 3.14 Diastolic Function MV Pk E: 0.97 MV Pk A: 0.67 E/A: 1.50 E'Medial: 10.20 E/E' Med: 9.50 E' Laterial: 12.10 E/E' Lat: 8.00 Right Ventricle TAPSE (mm): 26.00 TVS' Hermes: 16.00 Tricuspid Valve TR Pk Hermes: 1.92 TR Pk Grad: 15.00 Great Vessels Aorta Ao Root-2D: 2.50 2.0-3.7 cm Ao Asc: 2.70 2.1-3.4 cm Pulmonary Valve PV Pk Hermes: 1.07 Peak PV Grad: 5.00 Updated in Other Vendor System with Status of Final Basil Cordero MD electronically signed on 01/20/2021 4:44:53 PM with status of Final
--- NOTE | 2021-01-20 11:09 | HE.PHANOTE ---
Messaged EDMOND Avendano to check in with the patient about having her non-formulary medication brought in by her family. Dorie Cavanaugh, PharmD [phone]
--- NOTE | 2021-01-20 11:44 | MHC.CM.PN ---
Per ROUNDS discussion, Patient is not yet medically cleared for dc (IV Decadron, O2, Very SOB, ECHO pending). Home is the goal for dc and CM will follow for possible need to adjust the dc plan.
--- NOTE | 2021-01-20 14:19 | P.PNIM_ITS ---
Subjective Subjective Date of Service: 01/20/21 Interval History: covid pneumonia , pulm embolism Review of Systems still feels sob with excersion Denies any chest pain or abdominal pain or fever chills or nausea or vomiting or cough or phlegm. Physical Exam Vital Signs: Vital Signs: Last Vital Signs Temp 97.4 F 01/20/21 11:23 Pulse 75 01/20/21 11:23 Resp 19 01/20/21 11:23 BP 163/88 H 01/20/21 11:23 Pulse Ox 94 01/20/21 11:23 Oxygen Flow Rate 2 01/16/21 13:55 Body Mass Index 44.3 Appearance: Alert.? Oriented X3.? not in distress.? Eyes: Pupils equal, eomi ENT: Pharynx normal.? Moist mucous membranes. cvs: rrr, [id number] , no murmur res: air entry seems improving, slightly diminshed at bases. abd: no rebound or guarding ,nt, bs present. ext pulses present , no cyanosis ,Gait well balanced well coordinated. neuro: axo3 , nonfocal Objective Data Active Medications Acetaminophen (Acetaminophen 325 Mg Tablet) 650 mg PO Q6H PRN PRN Reason: Pain, Mild (Pain Scale 1-3) Last Admin: 01/19/21 08:19 Dose: 650 mg Documented by: BRITTANY Hydrocodone Bitart/Acetaminophen (Hydrocodone Bit/Acetam 5/325 Tablet) 1 tab PO DAILY PRN PRN Reason: pain Amlodipine Besylate (Amlodipine Besylate 2.5 Mg Tablet) 2.5 mg PO DAILY [facility]; Protocol Last Admin: 01/20/21 09:07 Dose: 2.5 mg Documented by: CECILLE Buspirone HCl (Buspirone Hcl 5 Mg Tablet) 15 mg PO BID [facility] Last Admin: 01/20/21 09:07 Dose: 15 mg Documented by: CECILLE Dexamethasone Sodium Phosphate (Dexamethasone Sod Phosphate 4 Mg/Ml Vial) 6 mg IVPUSH DAILY [facility] Last Admin: 01/20/21 09:07 Dose: 6 mg Documented by: CECILLE Docusate Sodium (Docusate Sodium 100 Mg Capsule) 100 mg PO DAILY PRN PRN Reason: Constipation Enoxaparin Sodium (Enoxaparin Sodium 120 Mg/0.8 Ml Syringe) 105 mg SUBCUT Q12H [facility] Last Admin: 01/20/21 09:08 Dose: 105 mg Documented by: CECILLE Multivitamins/Vitamin C (Multivitamin Tablet) 1 tab PO DAILY [facility] Last Admin: 01/20/21 09:08 Dose: 1 tab Documented by: CECILLE Ondansetron HCl (Ondansetron Hcl 4 Mg/2 Ml Vial) 4 mg IVPUSH Q8H PRN PRN Reason: Nausea and Vomiting Pharmacy Consult (Consult Rx Perform Med Rec) 1 each MISCELLANE ONCE PRN PRN Reason: Consult order Sertraline HCl (Sertraline Hcl 100 Mg Tablet) 100 mg PO DAILY [facility] Last Admin: 01/20/21 09:08 Dose: 100 mg Documented by: CECILLE Sodium Chloride (0.9 % Sodium Chloride Flush 3 Ml Syringe) 3 ml IVFLUSH QSHIFT [facility] Last Admin: 01/20/21 09:08 Dose: 3 ml Documented by: CECILLE Tizanidine HCl (Tizanidine Hcl 4 Mg Tablet) 2 mg PO Q48H PRN PRN Reason: Spasms Labs CBC & Chem 7: 01/17/21 06:16 01/17/21 06:16 Labs: Laboratory Results - last 24 hr 01/19/21 01/19/21 01/19/21 15:47 16:07 20:03 POC Glucose 140 H 108 B-Natriuretic Peptide 34 Assessment and Plan (1) COVID-19: Status: Acute (2) Acute respiratory failure with hypoxia: Status: Acute (3) Pulmonary embolism: Status: Acute Assessment and Plan: 46-year-old female with no significant past medical history who presents to the hospital with complaints of persistent and worsening shortness of breath, cough, nausea vomiting diarrhea found to have COVID-19 pneumonia 1. acute hypoxic respiratory failure- most likely a combination of PE as well as COVID-19 pneumonia still sob with minimal activity continue taper? oxygen,titrate oxygen off as tolerated, dexamethasone ?treat pulmonary emboli as well as pneumonia due to COVID as below 2. PE-. An embolism of the right upper lobe pulmonary artery extends into the apical branch. A subsegmental embolism is present in the right middle lobe. A right lower lobe embolism has components involving the proximal branches to the lateral and posterior basilar segments. trops neg on admission - most likely secondary to COVID-19 infection ?on Lovenox weight based trops neg , bnp seems fine added echo -has right sided P.E, still sob 3. pneumonia due to COVID-19 - patient hypoxic - will start on dexamethasone 6 mg IV - monitor respiratory status 4. Morbid obesity:? Encouraged to lose weight. Outpatient bariatric follow-up. Quality Stroke Does the patient have a stroke diagnosis?: No VTE Prior VTE?: No VTE Risk Level:: Medical - moderate - high VTE Device Contraindication: Treatment Not Indicated VTE Drug Contraindication: N/A - Med Ordered
[2021-01-20] MEDS: Omeprazole 20 MG CAPSULE.DR PO (16:44)
[2021-01-21] VITALS (8 sets, daily range): BP systolic 124–171; BP diastolic 65–87; PULSE 66–76; RESP 19–20; TEMP 36.2–36.9; O2SAT 91–96; BMI 44.2
[2021-01-21 07:11] LABS: Hematocrit 38.3 % (37-47); Hemoglobin 12.6 g/dl (12.0-16.0); Mean Corpuscular HGB Conc 32.9 g/dl (31.0-35.0); Mean Corpuscular Hemoglobin 26.9 pg (27.0-33.0); Mean Corpuscular Volume 81.8 fL (80-98); Mean Platelet Volume 9.8 fL (9.4-12.3); Platelet Count 289 X10*3/uL (160-400); Red Blood Count 4.68 X10*6/uL (4.20-5.50); Red Cell Distribution Width 13.4 % (11.0-16.0); White Blood Count 6.2 X10*3/uL (4.8-10.8)
[2021-01-21] MEDS: Sertraline HCL 100 MG TABLET PO (08:48)
[2021-01-21] MEDS: busPIRone HCl 5 MG TABLET 15 MG PO (08:48)
[2021-01-21] MEDS: amLODIPine Besylate 2.5 MG TABLET PO (08:48)
[2021-01-21] MEDS: dexAMETHasone sod phosphate 4 MG/ML VIAL 6 MG IVPUSH (08:48)
[2021-01-21] MEDS: Enoxaparin Sodium 120 MG/0.8 ML SYRINGE 105 MG SUBCUT (08:48)
[2021-01-21] MEDS: 0.9 % Sodium Chloride Flush 3 ML SYRINGE IVFLUSH (08:49)
[2021-01-21] MEDS: Multivitamin TABLET 1 TAB PO (08:49)
--- NOTE | 2021-01-21 11:33 | PM.DS ---
DS: Providers Provider Date of Service: 01/21/21 Date of admission: 01/16/21 20:12 Primary care physician: Daysi Beckett MD Consults: 01/17/21 08:16 Consult to Infectious Diseases Routine Consulting Provider: Katie Plummer Reason for consultation: covid pneumonia Has provider been notified: No DS: Diagnosis Discharge Diagnosis (1) COVID-19: Status: Acute (2) Acute respiratory failure with hypoxia: Status: Acute (3) Pulmonary embolism: Status: Acute DS: Summary Hospital Course Hospital Course: Chief Complaint: Shortness of breath This is a 46-year-old female with no significant past medical history who presents to the hospital with persistent shortness of breath, cough, nausea vomiting and diarrhea secondary to COVID infection.? Patient reports that she was diagnosed with COVID on January 10, but she continued to have worsening symptoms and now she is unable to keep any food down and has had persistent worsening symptoms.? On arrival to the ED patient hemodynamically stable found to have O2 of 90% on room air, dropping to 88 on ambulation. Patient denies any urinary symptoms, no lower extremity edema, no numbness tingling or weakness. Other vitals on unremarkable Labs are significant for 3.9, AST of 41, ALT of 38, alk the H of 387, CRP of 5.39, patient had a D-dimer of 2200 with a? CT angiogram ordered which showed bilateral ground-glass pulmonary opacities, emboli involving the right upper middle and right lower lobe no evidence of heart strain. Patient will be admitted further management Hospital course: ?acute hypoxic respiratory failure due to covid 19 and pulmonary embolism Covid treated with IV Dexamethasone and Oxygen and has now been weaned off O2 2. PE-. An embolism of the right upper lobe pulmonary artery extends into the apical branch. A subsegmental embolism is present in the right middle lobe. A right lower lobe embolism has components involving the proximal branches to the lateral and posterior basilar segments. trops neg on admission - most likely secondary to COVID-19 infection ?on Lovenox weight based -treated with Lovenox and will be transitioned to Eliquis at discharge 4. Morbid obesity:? Encouraged to lose weight. Outpatient bariatric follow-up. Time Spent with Patient Time attestation: Total time spent providing and/or coordinating discharge services: Discharge coordination time: Greater than 30 minutes Quality: Stroke Does the patient have a stroke diagnosis?: No Physical Exam Vital Signs: Vital Signs: Last Vital Signs Temp 97.9 F 01/21/21 11:14 Pulse 76 01/21/21 11:14 Resp 20 01/21/21 11:14 BP 160/85 H 01/21/21 11:14 Pulse Ox 94 01/21/21 11:14 Oxygen Flow Rate 2 01/16/21 13:55 Body Mass Index 44.2 General: AO X 3, no acute distress Resp: CTA bilateral CVS: S1,S2,RRR GI: +BS, NT, no distention Skin: No rash Neuro: motor grossly intact Psych: appropriate affect DS: Data Data Completed and Pending Labs on day of discharge: Laboratory Results - last 24 hr 01/21/21 06:31 WBC 6.2 RBC 4.68 Hgb 12.6 Hct 38.3 MCV 81.8 MCH 26.9 L MCHC 32.9 RDW 13.4 Plt Count 289 D MPV 9.8 Absolute Nucleated RBC 0.000 Nucleated RBC % (auto) 0.0 Preliminary micro results at discharge 01/16/21 15:16 Blood Culture - Preliminary Blood - Venous No growth after 48 hours. Discharge Plan Discharge Anticipated Discharge Date/Time: 01/21/21 11:05 Patient Disposition: Home, Self-Care Discharge Diagnosis: Pulmonary embolism, covid pneumonia, Referrals: Daysi Beckett MD [Primary Care Provider] - 1 Week Discharge Medications: New Eliquis DVT-PE Treat 30D Start 5 mg (74 tabs) tablets,dose pack 5 mg PO PER PKG DIR Qty: 74 RF: 0 dexamethasone 6 mg tablet 6 mg PO DAILY Qty: 5 RF: 0 Continued tizanidine 2 mg tablet 1 tab PO Q OTHER DAY PRN (Reason: Spasms) RF: 0 sertraline 100 mg tablet 1 tab PO DAILY RF: 0 norethindrone-e.estradiol-iron [Junel FE 05/15 ()] 1 mg-20 mcg (21)/75 mg (7) tablet 1 tab PO DAILY RF: 0 buspirone 15 mg tablet 1 tab PO BID RF: 0 multivitamin Tablet 1 tab PO DAILY RF: 0 hydrocodone-acetaminophen 5-325 mg tablet 1 tab PO DAILY PRN (Reason: pain) RF: 0 Discharge Orders: Discharge Order (Routine); Ordered 01/21/21 Ordered By: Cory Petit Diet: advance to usual diet Activity on Discharge: As tolerated Stand Alone Forms: Patient Portal Discharge page Care Plan Goals: full recovery from covid Health Concerns: covid 19, blood clot in lungs Plan of Treatment: Take Eliquis to thin your blood for 6 months, Take Dexamethasone for covid Follow CDC guideline for isolation and wear mask in public, once done with isolation: Stay in solation for 7 days and fever free Assessment: As above Discharge Date/Time: 01/21/21 16:45
--- NOTE | 2021-01-21 15:00 | MHC.CM.PN ---
Female 46 DX Covid. She is discharged to home today. No services ordered. Family is providing transportation.
== END 2021-01-21 16:45 | disposition home or self-care (01) | DRG 177 ==
LOC: HO.ED 20:32 → HO.EDOVER 20:53 → HO.IMC 22:28
PROVIDERS: Internal Medicine; Physician Assistant; Physician Assistant Medical; Admitting Provider Internal Medicine; Emergency Provider Emergency Medicine; PCP Internal Medicine; Visit Provider Internal Medicine
DX: U07.1 COVID-19 (principal); J96.01 Acute respiratory failure with hypoxia; J12.82 Pneumonia due to coronavirus disease 2019; I26.99 Other pulmonary embolism without acute cor pulmonale; Z68.41 Body mass index [BMI] 40.0-44.9, adult; E66.01 Morbid (severe) obesity due to excess calories; Z88.2 Allergy status to sulfonamides; Z88.6 Allergy status to analgesic agent; Z79.3 Long term (current) use of hormonal contraceptives; Z79.01 Long term (current) use of anticoagulants; Z79.899 Other long term (current) drug therapy
CPT/HCPCS: 36415; 71045; 71275; 80048; 80076; 81001; 81003; 81025; 82728; 82947; 83605; 83615; 83690; 83735; 83880; 84145; 84484; 85025; 85027; 85379; 85610; 85652; 85730; 86140; 87040; 87147; 87205; 87635; 93005; 93306; 96361; 96374; 96375; 99285; 99291; J1100; J1650; J2405; Q9967

== ENCOUNTER 2021-09-07 18:17 | Emergency (ER) | payer MEDICARE, MEDICAID, SELFPAY ==
--- NOTE | ~2021-09-07 | US_ITS ---
EXAMINATION: US VENOUS ULTRASOUND WITH DOPPLER LOWER EXTREMITY, LEFT CLINICAL INFORMATION: Left lower extremity edema COMPARISON: None TECHNIQUE: Ultrasound of the deep veins is performed from the hip to the calf with compression sonography and color and pulse Doppler assessment. Spectral analysis with color-flow imaging is performed. FINDINGS: There is normal venous compression and respiratory variation and augmented flow. The visualized common femoral vein, superficial femoral vein, profunda femoral vein, popliteal vein, and the trifurcation region shows no evidence of deep venous thrombosis. The contralateral right common femoral vein appears normal. There is no significant popliteal fossa cyst. If the patient's symptoms persist, followup ultrasound in 5 days 7 days might be of value to exclude proximal propagation from a non-visualized calf vein. US/US venous duplex LE IMPRESSION: No DVT demonstrated in the left lower extremity.
--- NOTE | ~2021-09-07 | XR_ITS ---
EXAMINATION: XR FOOT, LEFT CLINICAL INFORMATION: Left foot pain COMPARISON: None TECHNIQUE: AP, lateral, and oblique views of the left foot. FINDINGS: No evidence of acute fracture or dislocation. No focal erosion. Osseous mineralization is normal. Small plantar and posterior calcaneal spurs are noted at the insertion of plantar aponeurosis and Achilles tendon. Mild degenerative changes are noted in the midfoot, best seen on the lateral view. No evidence of soft tissue air or radiopaque foreign body. XR/XR foot LT min 3V IMPRESSION: No acute osseous abnormality in the left foot. Small calcaneal spurs. Mild degenerative changes in the midfoot.
[2021-09-07 18:28] VITALS: BP 194/71; PULSE 80; RESP 18; TEMP 37; O2SAT 96; BMI 42.0
[2021-09-07 18:45] LABS: MANUAL DIFF FLAG NO
[2021-09-07 18:46] LABS: Basophils Absolute Auto 0.1 X10*3/uL (0.0-0.2); Basophils Percent Auto 0.6 % (0-2); Eosinophils Absolute Auto 0.1 X10*3/uL (0.0-0.4); Hematocrit 37.7 % (37.0-47.0); Hemoglobin 12.6 g/dl (12.0-16.0); Imm Gran Abs Auto 0.03 X10*3/uL (0.00-0.03); Imm Gran Pct Auto 0.3 % (0.0-0.4); Lymphocytes Absolute Auto 2.2 X10*3/uL (1.2-4.9); Lymphocytes Percent Auto 21.5 % (20-40); Mean Corpuscular HGB Conc 33.4 g/dl (31.0-35.0); Mean Corpuscular Hemoglobin 27.8 pg (27.0-33.0); Mean Corpuscular Volume 83.2 fL (80.0-98.0); Monocytes Absolute Auto 0.7 X10*3/uL (0.1-1.2); Monocytes Percent Auto 6.4 % (2-11); Neutrophils Absolute Auto 7.2 x10*3/uL (2.0-8.3); Neutrophils Percent Auto 70.2 % (45-73); Platelet Count 281 X10*3/uL (160-400); Red Blood Count 4.53 X10*6/uL (4.20-5.50); Red Cell Distribution Width 13.1 % (11.0-16.0); White Blood Count 10.3 X10*3/uL (4.8-10.8)
[2021-09-07 18:57] LABS: D Dimer High Sensitivity 290 NG/ML
[2021-09-07 19:01] LABS: Alanine Aminotransferase 22 U/L (0-31); Albumin Level 4.2 g/dL (3.5-5.0); Alkaline Phosphatase 61 U/L (39-117); Anion Gap 12 (12-20); Aspartate Amino Transferase 14 U/L (5-31); Bilirubin Total 0.3 mg/dL (0.0-1.0); Blood Urea Nitrogen 12 mg/dL (9-16); Calcium 9.2 mg/dL (8.4-10.2); Carbon Dioxide 26 mmol/L (22-29); Chloride 105 mmol/L (96-108); Creatinine Clr Calc Pharmacy 109.4; Estimated Glomerular Filt Rate > 60; Glucose Random 83 mg/dL (60-115); Sodium 139 mmol/L (135-145); Total Protein 7.1 g/dL (6.5-8.0)
--- NOTE | 2021-09-07 22:52 | ED.EXTPRO ---
HPI - Extremity Problem General Chief complaint: Extremity Problem Stated complaint: ? Blood Clot Time Seen by Provider: 09/07/21 18:32 Source: patient Mode of arrival: ambulatory Limitations: no limitations History of Present Illness HPI Narrative: Patient complaining of pain dorsum of the left foot for last 8 days went to urgent care center who sent the patient hereto rule out DVT no shortness of breath no chest pain or palpitation Related Data Home Medications Medication Instructions Recorded Confirmed buspirone 15 mg tablet 1 tab PO BID 01/16/21 01/16/21 hydrocodone 5 mg-acetaminophen 325 1 tab PO DAILY PRN 01/16/21 01/16/21 mg tablet multivitamin 1 tab PO DAILY 01/16/21 01/16/21 norethindrone 1 mg-ethinyl 1 tab PO DAILY 01/16/21 01/16/21 estradiol 20 mcg ()-iron 75 mg () tablet (05/15 ()) sertraline 100 mg tablet 1 tab PO DAILY 01/16/21 01/16/21 tizanidine 2 mg tablet 1 tab PO Q OTHER DAY PRN 01/16/21 01/16/21 Previous Rx's Medication Instructions Recorded apixaban 5 mg (74 tabs) tablets in 5 mg PO PER PKG DIR #74 ea 01/21/21 a dose pack ([employer] DVT-PE Treat 30D Start) dexamethasone 6 mg tablet 6 mg PO DAILY #5 tab 01/21/21 Allergies Allergy/AdvReac Type Severity Reaction Status Date / Time sulfamethoxazole Allergy Unknown VOMITING Unverified 01/11/20 16:40 [From BACTRIM] trimethoprim [From BACTRIM] Allergy Unknown VOMITING Unverified 01/11/20 16:40 naproxen [NAPROXEN] AdvReac Intermediate NAUSEA & Unverified 01/11/20 16:40 VOMITING Review of Systems Review of Systems: Yes all other systems are reviewed and are negative PMFSH Past Medical History Surgical History No significant past surgical history Social History Social History Household Members: Family Housing: House Do you presently have visiting nurse or other home services: No Patient Tobacco Use Status: Never used Tobacco Advance Directives: Yes Advance Directives on File: Yes Advance Directives Date on File: 01/16/21 service: No Current occupational status: disabled Physical Exam Vital Signs: Vital Signs: Last Vital Signs Temp 98.6 F 09/07/21 18:28 Pulse 80 09/07/21 18:28 Resp 18 09/07/21 18:28 BP 194/71 H 09/07/21 18:28 Pulse Ox 96 09/07/21 18:28 BMI result Body Mass Index 42.0 Appearance: Alert. Oriented X3. No acute distress. ENT: Pharynx normal. Oral Mucosa moist Neck: Normal inspection. Neck supple. CVS: Normal heart rate and rhythm. Pulses normal. Respiratory: No respiratory distress. Equal air entry bilateral, no wheezing/rales/rhonchi Abdomen: Soft and nontender. Bowel sounds are present, no mass palpable, no CVA tenderness Skin: Skin warm and dry. Normal skin color. Normal skin turgor. Extremities: No lower extremity edema. No calf tenderness Neuro: Oriented X 3. No motor deficit. Extrem: Ankle/foot/toe images: 1. Swelling and tenderness no calf tenderness MDM - Extremity (Nontraumatic) MDM Narrative Medical decision making narrative: Venous Doppler negative for DVT x-ray also negative fracture shows some arthritis discharge patient home patient already has ortho boot which she continue to wear for support Lab Data Result diagrams: 09/07/21 18:40 09/07/21 18:40 Labs: Lab Results 09/07/21 09/07/21 09/07/21 Range/Units 18:40 18:40 18:40 WBC 10.3 (4.8-10.8) X10*3/uL RBC 4.53 (4.20-5.50) X10*6/uL Hgb 12.6 (12.0-16.0) g/dl Hct 37.7 (37.0-47.0) % MCV 83.2 (80.0-98.0) fL MCH 27.8 (27.0-33.0) pg MCHC 33.4 (31.0-35.0) g/dl RDW 13.1 (11.0-16.0) % Plt Count 281 (160-400) X10*3/uL MPV 9.0 L (9.4-12.3) fL Immature Gran % (Auto) 0.3 (0.0-0.4) % Neut % (Auto) 70.2 (45-73) % Lymph % (Auto) 21.5 (20-40) % [place] % (Auto) 6.4 (2-11) % Eos % (Auto) 1.0 (0-4) % Baso % (Auto) 0.6 (0-2) % Lymph # (Auto) 2.2 (1.2-4.9) X10*3/uL [place] # (Auto) 0.7 (0.1-1.2) X10*3/uL Eos # (Auto) 0.1 (0.0-0.4) X10*3/uL Baso # (Auto) 0.1 (0.0-0.2) X10*3/uL Abs Immat Gran (auto) 0.03 (0.00-0.03) X10*3/uL Absolute Neuts (auto) 7.2 (2.0-8.3) x10*3/uL Absolute Nucleated RBC 0.000 (0.0-0.012) X10*3/uL Nucleated RBC % (auto) 0.0 (0.0-0.2) /100WBC D-Dimer High Sensitivty 290 NG/ML Sodium 139 (135-145) mmol/L Potassium 4.0 (3.3-5.1) mmol/L Chloride 105 (96-108) mmol/L Carbon Dioxide 26 (22-29) mmol/L Anion Gap 12 (12-20) BUN 12 (9-16) mg/dL Creatinine 0.72 (0.5-1.4) mg/dL Estim Creat Clear Calc 109.4 Estimated GFR > 60 Random Glucose 83 (60-115) mg/dL Calcium 9.2 D (8.4-10.2) mg/dL Total Bilirubin 0.3 (0.0-1.0) mg/dL AST 14 D (5-31) U/L ALT 22 (0-31) U/L Alkaline Phosphatase 61 (39-117) U/L Total Protein 7.1 (6.5-8.0) g/dL Albumin 4.2 (3.5-5.0) g/dL Discharge Plan Discharge Clinical Impression: Foot pain, left Patient Disposition: Home, Self-Care Instructions: Arthralgia (ED) Additional Instructions: Take ibuprofen for pain Splint for support You do not have any blood clot in your left leg Prescriptions: No Action tizanidine 2 mg tablet 1 tab PO Q OTHER DAY PRN (Reason: Spasms) 0RF sertraline 100 mg tablet 1 tab PO DAILY 0RF norethindrone-e.estradiol-iron [05/15 (28)] 1 mg-20 mcg (21)/75 mg (7) tablet 1 tab PO DAILY 0RF buspirone 15 mg tablet 1 tab PO BID 0RF multivitamin Tablet 1 tab PO DAILY 0RF hydrocodone-acetaminophen 5-325 mg tablet 1 tab PO DAILY PRN (Reason: pain) 0RF Rx Instructions: TAKES SELDOMLY Eliquis DVT-PE Treat 30D Start 5 mg (74 tabs) tablets,dose pack 5 mg PO PER PKG DIR Qty: 74 0RF Rx Instructions: Take 2 tabs twice daily for 7 days, then take 1 twice daily thereafter dexamethasone 6 mg tablet 6 mg PO DAILY Qty: 5 0RF Interventions: ED Discharge Assessment Last Done: 09/07/21 23:01 Discharge Date/Time: 09/07/21 23:04
== END 2021-09-07 23:04 | disposition home or self-care (01) ==
PROVIDERS: Emergency Provider Internal Medicine; PCP Internal Medicine
DX: M79.672 Pain in left foot (principal); R60.0 Localized edema
CPT/HCPCS: 36415; 73630; 80053; 85025; 85379; 93971; 99282; 99284

== ENCOUNTER 2024-01-04 11:31 | Inpatient (IN) | payer MEDICARE, MEDICAID, SELFPAY ==
[2024-01-04] VITALS (9 sets, daily range): BP systolic 165–217; BP diastolic 77–111; PULSE 69–87; RESP 16–18; TEMP 36.7–36.9; O2SAT 96–99; BMI 42.7
--- NOTE | ~2024-01-04 | XR_ITS ---
EXAMINATION: XR CHEST CLINICAL INFORMATION: High blood pressure COMPARISON: 01/16/2021 (report only) TECHNIQUE: Frontal view of the chest was obtained. FINDINGS: No significant abnormality is noted involving the heart, lungs, mediastinum, bony thorax or soft tissues. XR/XR chest 1V IMPRESSION: Unremarkable examination. Electronically signed by: Campbell Delaney MD 01/04/2024 03:14 PM EDT RP
--- NOTE | ~2024-01-04 | US_ITS ---
EXAMINATION: ULTRASOUND OF KIDNEYS WITH RENAL ARTERY DOPPLER CLINICAL INFORMATION: Uncontrolled hypertension. COMPARISON: None. TECHNIQUE: Ultrasound of the kidneys was performed along with color flow Doppler imaging and velocity measurements in the proximal mid and distal renal arteries. Aortic velocities were measured and renal/aortic ratios were calculated. Segmental resistive indices were calculated bilaterally. FINDINGS: The kidneys appeared normal with the right kidney measuring 10.6 x 4.2 x 4.4 cm and the left kidney measuring 10.0 x 5.1 x 4.3 cm. No renal masses, renal stones or hydronephrosis is seen. Renal cortical thickness appears normal. Velocity measurements in the proximal mid and distal renal arteries are normal with the exception of elevated velocity in the right mid renal artery of 197 cm/s and in the left proximal renal artery at 216 cm/s. Velocity in the aorta is normal 97.8 cm/s and, therefore, the renal aortic ratios are normal.. Resistive indices are normal at 0.6. US/US renal BI IMPRESSION: Elevated velocities in the renal arteries bilaterally suggesting some degree of possible renal artery stenosis. CT angiography could be performed for further evaluation if clinical suspicion is high. Electronically signed by: Campbell Delaney MD 01/04/2024 10:05 PM EDT
--- NOTE | ~2024-01-04 | CT_ITS ---
EXAMINATION: CT HEAD WITHOUT CONTRAST CLINICAL INFORMATION: Hypertension. Headache. COMPARISON: No relevant prior imaging. TECHNIQUE: Contiguous axial imaging was performed from the skull base to vertex without intravenous administration of contrast. This CT examination was performed using dose optimization techniques as appropriate, variously including the following: *Automated exposure control *Adjustment of mA and/or kV according to patient size (this includes techniques or standardized protocols for targeted exams where dose is matched to indication/reason for exam; i.e. extremities or head) *Use of iterative reconstruction technique DLP: 587 mGy-cm FINDINGS: There is no acute intracranial hemorrhage or abnormal extra-axial collection. No mass effect or midline shift. Lateral and third ventricles are normal. No hydrocephalus. [place]-white matter differentiation is preserved and there is no evidence of an acute territorial infarct. The calvarium and skull base are intact. Mastoid air cells and middle ear cavities are well aerated. No active paranasal sinus disease. CT/CT head/brain wo IV con IMPRESSION: Normal CT scan of the head. Electronically signed by: Kemal Ortega MD 01/04/2024 02:22 PM EDT
--- NOTE | ~2024-01-04 | US_ITS ---
EXAMINATION: ULTRASOUND OF KIDNEYS WITH RENAL ARTERY DOPPLER CLINICAL INFORMATION: Uncontrolled hypertension. COMPARISON: None. TECHNIQUE: Ultrasound of the kidneys was performed along with color flow Doppler imaging and velocity measurements in the proximal mid and distal renal arteries. Aortic velocities were measured and renal/aortic ratios were calculated. Segmental resistive indices were calculated bilaterally. FINDINGS: The kidneys appeared normal with the right kidney measuring 10.6 x 4.2 x 4.4 cm and the left kidney measuring 10.0 x 5.1 x 4.3 cm. No renal masses, renal stones or hydronephrosis is seen. Renal cortical thickness appears normal. Velocity measurements in the proximal mid and distal renal arteries are normal with the exception of elevated velocity in the right mid renal artery of 197 cm/s and in the left proximal renal artery at 216 cm/s. Velocity in the aorta is normal 97.8 cm/s and, therefore, the renal aortic ratios are normal.. Resistive indices are normal at 0.6. US/US renal doppler IMPRESSION: Elevated velocities in the renal arteries bilaterally suggesting some degree of possible renal artery stenosis. CT angiography could be performed for further evaluation if clinical suspicion is high. Electronically signed by: Campbell Delaney MD 01/04/2024 10:05 PM EDT
--- NOTE | ~2024-01-04 | CT_ITS ---
EXAMINATION: CT ANGIOGRAM ABDOMEN AND PELVIS CLINICAL INFORMATION: Uncontrolled hypertension, evaluate for renal artery stenosis COMPARISON: Renal duplex-01/04/2012 TECHNIQUE: Multiple axial images were obtained through the abdomen and pelvis following the administration of 80 mL of Omnipaque 350 intravenous contrast. Images were reviewed on a dedicated 3-D workstation. This CT examination was performed using dose optimization techniques as appropriate, variously including the following: *Automated exposure control *Adjustment of mA and/or kV according to patient size (this includes techniques or standardized protocols for targeted exams where dose is matched to indication/reason for exam; i.e. extremities or head) *Use of iterative reconstruction technique DLP: 767 mGy-cm FINDINGS: VASCULAR: ABDOMINAL AORTA: Normal caliber. No significant atherosclerotic disease.. RIGHT ILIAC ARTERY: Patent. LEFT ILIAC ARTERY: Patent. CELIOMESENTERIC ARTERIES: The celiac artery, SMA, and EMELYN are patent.. RENAL ARTERIES: Single bilateral renal arteries are patent. There is minimal bilateral luminal irregularity. NONVASCULAR: Lung Bases: Bibasilar atelectasis Liver, Gallbladder and Biliary Tree: The liver is normal in size, shape, and attenuation. No focal hepatic lesion or biliary ductal dilatation is present. Gallbladder is not visualized. Pancreas: Unremarkable. Spleen: Unremarkable. Adrenal Glands: Unremarkable. Kidneys and Ureters: The kidneys are normal in size, shape, and attenuation. No hydronephrosis, hydroureter, or calculi seen. No perinephric stranding. Bladder: Unremarkable. Gastrointestinal Tract: The small and large bowel are unremarkable. Abdominal Wall: No significant hernia is appreciated. Lymph Nodes: Normal. Pelvic Viscera: IUD within the uterus. Osseous Structures: Unremarkable. CT/CT angio abdomen pelvis IMPRESSION: Minimal bilateral renal artery luminal irregularity suggestive of fibromuscular dysplasia. Fleischner guidelines were followed. Electronically signed by: Angélica Razo MD 01/07/2024 08:15 AM EDT
--- NOTE | 2024-01-04 11:49 | ECG_ITS ---
Test Reason : HYPERTENSIVE Blood Pressure : / mmHG Vent. Rate : 076 BPM Atrial Rate : 076 BPM P-R Int : 146 ms QRS Dur : 078 ms QT Int : 416 ms P-R-T Axes : 053 -09 039 degrees QTc Int : 468 ms Poor data quality, interpretation may be adversely affected Normal sinus rhythm Normal ECG When compared with ECG of 16-JAN-2021 14:50, No significant change was found Referred By: Erica Canseco Electronically Signed By:ALEX FINCH
--- NOTE | 2024-01-04 11:51 | ED.GENADULT ---
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 Patient reports blood pressure has been in the 190s/100s x3 at home today. She was told to recently go up on her blood pressure medication from 10 mg of lisinopril to 20 mg of lisinopril. She has been monitoring her blood pressure at home and it has been elevated for the last 1 month or so. Initially her blood pressure was in the 150s when she was following up with vascular for her wounds on her legs. Her blood pressure has been worsening and associated with dizziness, mild nausea and headaches. She denies any associated chest pain, vision changes. No abdominal pain, vomiting, diarrhea. She has not taken her lisinopril yet today but she took 30 mg lisinopril last night with BP 190s today. complaint: headache with elevated BP at home Onset (ago): day(s) Location: head Radiation: non-radiation Severity: moderate Quality: aching Pain Consistency: constant Relieving factors: none Exacerbating factors: none Associated symptoms: headaches and nausea/vomiting Treatments prior to arrival: none Related Data Home Medications ?Medication ?Instructions ?Recorded ?Confirmed buspirone 15 mg tablet 15 mg PO BID 01/16/21 01/04/24 hydrocodone 5 mg-acetaminophen 325 1 tab PO DAILY PRN pain 01/16/21 01/04/24 mg tablet multivitamin 1 tab PO DAILY 01/16/21 01/04/24 sertraline 100 mg tablet 100 mg PO DAILY 01/16/21 01/04/24 tizanidine 2 mg tablet 2 mg PO Q72H PRN Spasms 01/16/21 01/04/24 lisinopril 10 mg tablet 30 mg PO DAILY 01/04/24 01/04/24 Allergies Allergy/AdvReac Type Severity Reaction Status Date / Time sulfamethoxazole Allergy Unknown VOMITING Verified 01/04/24 11:56 [From BACTRIM] trimethoprim [From BACTRIM] Allergy Unknown VOMITING Verified 01/04/24 11:56 naproxen [NAPROXEN] AdvReac Intermediate NAUSEA & Verified 01/04/24 11:56 VOMITING Review of Systems Review of Systems: Yes all other systems are reviewed and are negative [facility] Past Medical History Medical History Venous ulcer Pulmonary embolism COVID-19 HTN (hypertension) Surgical History No significant past surgical history Social History Social History Household Members: Spouse and Children Housing: House Do you presently have visiting nurse or other home services: No Patient Tobacco Use Status: Never used Tobacco Smoked in Last 30 Days: No e-Cigarette/Vaping Use: Never Used Patient Interested in Nicotine Replacement: No Patient Given Instructions on How to Stop Smoking: No Use of substances other than those prescribed or required for medical reasons: No Currently Displaying Signs/Symptoms of Drug Intoxication Withdrawal: No Any prior treatment program specific to substance use: No Have you been hit, kicked, punched, or otherwise hurt by someone within the past year? If so, by whom?: No Do you feel safe in your current relationship?: Yes Is there a partner from a previous relationship who is making you feel unsafe now?: No Are you made to feel afraid or neglected: No Spiritual Healthcare Practices: restoration Advance Directives: No Advance Directives Information Provided: No Advance Directives Date on File: 01/16/21 Do you have a plan to hurt others: No Plan Recently lost weight without trying: No Eating poorly because of decreased appetite: No Nutrition Risks: No Nutritional Risk Patient : No : No Poor oral hygiene: No service: No Current occupational status: disabled Physical Exam ED Vital Signs: Vital Signs - 24 hr 01/05/24 11:39 01/05/24 12:48 01/05/24 15:47 Temperature 98.2 F Pulse Rate 77 75 87 Respiratory Rate 15 18 18 Blood Pressure 199/89 H 158/92 H 172/86 H Pulse Oximetry 96 97 97 Oxygen Delivery Method Room Air Room Air 01/05/24 19:45 01/05/24 23:58 01/06/24 03:59 Temperature 98.6 F 98.7 F 98.7 F Pulse Rate 84 79 81 Respiratory Rate 16 18 18 Blood Pressure 164/86 H 179/80 H 189/90 H Pulse Oximetry 98 96 95 Oxygen Delivery Method Room Air Room Air Room Air 01/06/24 08:00 01/06/24 09:44 Temperature 98.6 F Pulse Rate 76 Respiratory Rate 18 Blood Pressure 220/110 H 188/100 H Pulse Oximetry 94 Oxygen Delivery Method Room Air BMI result Body Mass Index 42.7 Appearance: Alert. Oriented X3. No acute distress. Head: normocephalic, atraumatic. Eyes: Pupils equal, round and reactive to light. No nystagmus, EOMI ENT: Pharynx normal. No tonsillar swelling or exudate. Neck: Normal inspection. Neck supple. CVS: Normal heart rate and rhythm. Pulses normal. Respiratory: No respiratory distress. Breath sounds normal. Abdomen: Soft and nontender. +BS x4 Skin: Skin warm and dry. Normal skin color. Normal skin turgor. No rashes. Extremities: No lower extremity edema. No joint swelling. Left lower extremity wrapped in an Jake wrap. Neuro/psych: Oriented X 3. No motor deficit. No sensory deficit. CN II-XII intact. Normal speech and cognition. Course Course Course Narrative: This is an RME done by WALTER Canseco: Additional HPI, ROS, PE not included below will be deferred to primary provider. 48 yo F with PMHx pulmonary embolism (no longer taking Eliquis) presenting with CC of high blood pressures up to 192/102. Taking BP pills at night with recent increase of lisinopril up to 30mg. Denies CP, SOB. Endorses headache, lightheadedness and dizziness upon standing. Appearance: Alert.? Oriented X3.? No acute cardiopulmonary distress distress.? Head: Normocephalic, atraumatic, no step-offs or deformities Neck: Normal inspection.? Neck supple.? CVS: Pulses normal.? Respiratory: No respiratory distress.? Abdomen: Soft and nontender.? Skin: ? Normal skin color. Extremities: 5/5 strength to bilateral upper and lower extremities Neuro: Oriented X 3.? No motor deficit.? No sensory deficit. Medications Administered Generic Name Dose Route Start Last Admin Trade Name Freq PRN Reason Stop Dose Admin Acetaminophen 650 mg 01/04/24 20:06 01/06/24 08:38 Acetaminophen 325 Mg Tablet PO 650 mg Q6H PRN Administration Pain, Mild (Pain Scale 1-3), fever or headache Amlodipine Besylate 10 mg 01/05/24 11:00 01/06/24 08:19 Amlodipine Besylate 10 Mg Tablet PO 10 mg DAILY STEPHIE Administration Protocol Buspirone HCl 15 mg 01/05/24 11:00 01/06/24 08:19 Buspirone Hcl 5 Mg Tablet PO 15 mg BID STEPHIE Administration Carvedilol 6.25 mg 01/06/24 09:00 01/06/24 08:38 Carvedilol 6.25 Mg Tablet PO 6.25 mg BID STEPHIE Administration Protocol Enoxaparin Sodium 40 mg 01/04/24 20:15 01/05/24 20:02 Enoxaparin Sodium 40 Mg/0.4 Ml Syringe SUBCUT 40 mg Q24H STEPHIE Administration Hydrochlorothiazide 25 mg 01/06/24 09:55 01/06/24 10:23 Hydrochlorothiazide 25 Mg Tablet PO 25 mg DAILY STEPHIE Administration Protocol Lisinopril 40 mg 01/05/24 21:00 01/05/24 20:06 Lisinopril 40 Mg Tablet PO 40 mg BEDTIME STEPHIE Administration Protocol Multivitamins/Vitamin C 1 tab 01/06/24 09:00 01/06/24 08:19 Multivitamin Tablet PO 1 tab DAILY STEPHIE Administration Sertraline HCl 100 mg 01/05/24 11:00 01/06/24 08:19 Sertraline Hcl 100 Mg Tablet PO 100 mg DAILY STEPHIE Administration Sodium Chloride 3 ml 01/05/24 00:00 01/06/24 08:38 0.9 % Sodium Chloride Flush 3 Ml Syringe IVFLUSH 3 ml QSHIFT STEPHIE Administration Discontinued Medications Generic Name Dose Route Start Last Admin Trade Name Freq PRN Reason Stop Dose Admin Acetaminophen/Butalbital/Caffeine 1 tab 01/06/24 09:56 01/06/24 10:28 Butalb/Acetamin/Caff 50/325/40 Tablet PO 01/06/24 09:57 1 tab ONCE ONE Administration Hydrocodone Bitart/Acetaminophen 1 tab 01/04/24 21:47 01/04/24 22:02 Hydrocodone Bit/Acetam 5/325 Tablet PO 01/04/24 21:48 1 tab ONCE ONE Administration Hydralazine HCl 20 mg 01/04/24 19:40 01/04/24 20:08 Hydralazine Hcl 20 Mg/Ml Vial IVPUSH 01/04/24 19:41 20 mg ONCE ONE Administration Protocol Ketorolac Tromethamine 30 mg 01/04/24 16:57 01/04/24 17:06 Ketorolac Tromethamine 30 Mg/Ml Vial IM 01/04/24 16:58 30 mg ONCE ONE Administration Labetalol HCl 10 mg 01/04/24 17:45 01/04/24 17:58 Labetalol Hcl 100 Mg/20 Ml Vial IVPUSH 01/04/24 17:46 10 mg ONCE ONE Administration Lisinopril 30 mg 01/04/24 16:56 01/04/24 17:05 Lisinopril 10 Mg Tablet PO 01/04/24 16:57 30 mg ONCE ONE Administration Protocol Morphine Sulfate 2 mg 01/04/24 23:44 01/04/24 23:54 Morphine Sulfate 2 Mg/Ml Cartridge IVPUSH 01/04/24 23:45 2 mg ONCE ONE Administration Protocol Nitroglycerin 0.5 inch 01/04/24 19:40 01/04/24 20:09 Nitroglycerin 2 % Oint 1 Gm Packet TRANSDERMA 01/04/24 19:41 0.5 inch ONCE ONE Administration Medical Decision Making Medical Decision Making MDM Narrative: 48 yo female with history of HTN on lisinopril 10mg, recently increased to 20mg per her PCP who presents to the ER with symptomatic HTN, BP 190/100. Pt endorses dizziness and frontal headache. She is no longer on anticoagulation. Patient given lisinopril 30mg from triage at 5pm. On arrival to the ER, patient is neurologically intact. BP 217/111 after lisinopril given. continues to c/o headache and dizziness. Lab workup reassuring with a negative troponin, no protein in her urine. IV established and 10 mg IV labetalol given for hypertensive urgency. Upon re-evaluation, BP improved to 186/100 but her symptoms persisted. will plan for admission for management of HTN urgency. patient agrees w/ plan Differential Diagnosis Differential Diagnoses: The differential diagnosis associated with the presentation includes HTN urgency, HTN emergency, malignant HTN, seconday cause of HTN Admission/Observation Consideration of admission/observation: Escalation of care including admission/observation considered Consult Healthcare Provider Management of the patient was discussed with: Hospitalist Dr. Petit TT at 18:50 Lab Data MDM Lab Attestation statement: I reviewed the patient's lab results. no anemia, negative troponin 01/05/24 04:43 01/06/24 06:21 Labs: Lab Results 01/04/24 01/04/24 01/04/24 Range/Units 12:42 12:47 17:01 WBC 8.0 (4.8-10.8) X10*3/uL RBC 4.85 (4.20-5.50) X10*6/uL Hgb 13.4 (12.0-16.0) g/dl Hct 39.0 (37.0-47.0) % MCV 80.4 (80.0-98.0) fL MCH 27.6 (27.0-33.0) pg MCHC 34.4 (31.0-35.0) g/dl RDW 13.2 (11.0-16.0) % Plt Count 290 (160-400) X10*3/uL MPV 9.4 (9.4-12.3) fL Immature Gran % (Auto) 0.4 (0.0-0.4) % Neut % (Auto) 67.3 (45-73) % Lymph % (Auto) 22.8 (20-40) % [place] % (Auto) 7.0 (2-11) % Eos % (Auto) 1.6 (0-4) % Baso % (Auto) 0.9 (0-2) % Lymph # (Auto) 1.8 (1.2-4.9) X10*3/uL [place] # (Auto) 0.6 (0.1-1.2) X10*3/uL Eos # (Auto) 0.1 (0.0-0.4) X10*3/uL Baso # (Auto) 0.1 (0.0-0.2) X10*3/uL Abs Immat Gran (auto) 0.03 (0.00-0.03) X10*3/uL Absolute Neuts (auto) 5.4 (2.0-8.3) x10*3/uL Absolute Nucleated RBC 0.000 (0.0-0.012) X10*3/uL Nucleated RBC % (auto) 0.0 (0.0-0.2) /100WBC Sodium 138 (135-145) mmol/L Potassium 3.7 (3.3-5.1) mmol/L Chloride 107 (96-108) mmol/L Carbon Dioxide 25 (22-29) mmol/L Anion Gap 10 L (12-20) BUN 11 (9-16) mg/dL Creatinine 0.66 (0.5-1.4) mg/dL Estim Creat Clear Calc 117.9 Estimated GFR > 60 Random Glucose 106 (60-115) mg/dL Calcium 9.4 (8.4-10.2) mg/dL Magnesium 1.9 (1.6-2.6) mg/dL Total Bilirubin 0.3 (0.0-1.0) mg/dL AST 17 (5-31) U/L ALT 15 (0-31) U/L Alkaline Phosphatase 67 (39-117) U/L Troponin I High Sens < 2.7 (<3.5-17.0) ng/L Total Protein 7.3 (6.5-8.0) g/dL Albumin 4.2 (3.5-5.0) g/dL TSH (0.32-4.0) uIU/mL Random Cortisol ug/dL Urine Color Yellow Urine Appearance Clear Urine pH 6.0 (5.0-9.0) Ur Specific [place] 1.020 (1.005-1.025) Urine Protein Negative (Neg-Trace) mg/dL Urine Glucose (UA) Negative (Negative) mg/dL Urine Ketones Negative (Negative) mg/dL Urine Blood Negative (Negative) Urine Nitrite Negative (Negative) Ur Leukocyte Esterase Trace H (Negative) Urine RBC 0-2 (0-2) /HPF Urine WBC 0-5 (0-5) /HPF Ur Squamous Epith Cells 0-2 (0-2) /HPF Urine Bacteria None Seen (None Seen) Hyaline Casts 0-2 (0-2) /LPF Urine Opiates Screen Not Detected (Not Detect) Ur Buprenorphine Scrn Not Detected (Not Detect) ng/mL Ur Oxycodone Screen Not Detected (Not Detect) ng/mL Urine Methadone Screen Not Detected (Not Detect) ng/mL Urine Fentanyl Screen Not Detected (Not Detect) Ur Barbiturates Screen Not Detected (Not Detect) Ur Phencyclidine Scrn Not Detected (Not Detect) Ur Amphetamines Screen Not Detected (Not Detect) U Benzodiazepines Scrn Not Detected (Not Detect) Urine Cocaine Screen Not Detected (Not Detect) U Marijuana (THC) Screen Not Detected (Not Detect) COVID-19 (FEMI) Negative (Negative) COVID-19 Clin Com See Note 01/05/24 01/06/24 Range/Units 04:43 06:21 WBC 10.0 (4.8-10.8) X10*3/uL RBC 4.86 (4.20-5.50) X10*6/uL Hgb 13.3 (12.0-16.0) g/dl Hct 38.9 (37.0-47.0) % MCV 80.0 (80.0-98.0) fL MCH 27.4 (27.0-33.0) pg MCHC 34.2 (31.0-35.0) g/dl RDW 13.2 (11.0-16.0) % Plt Count 290 (160-400) X10*3/uL MPV 9.8 (9.4-12.3) fL Immature Gran % (Auto) 0.2 (0.0-0.4) % Neut % (Auto) 82.1 H (45-73) % Lymph % (Auto) 12.8 L (20-40) % [place] % (Auto) 4.3 (2-11) % Eos % (Auto) 0.1 (0-4) % Baso % (Auto) 0.5 (0-2) % Lymph # (Auto) 1.3 (1.2-4.9) X10*3/uL [place] # (Auto) 0.4 (0.1-1.2) X10*3/uL Eos # (Auto) 0.0 (0.0-0.4) X10*3/uL Baso # (Auto) 0.1 (0.0-0.2) X10*3/uL Abs Immat Gran (auto) 0.02 (0.00-0.03) X10*3/uL Absolute Neuts (auto) 8.2 (2.0-8.3) x10*3/uL Absolute Nucleated RBC 0.000 (0.0-0.012) X10*3/uL Nucleated RBC % (auto) 0.0 (0.0-0.2) /100WBC Sodium 138 140 (135-145) mmol/L Potassium 3.5 3.6 (3.3-5.1) mmol/L Chloride 107 110 H (96-108) mmol/L Carbon Dioxide 20 L 22 (22-29) mmol/L Anion Gap 15 12 (12-20) BUN 12 11 (9-16) mg/dL Creatinine 0.74 0.69 (0.5-1.4) mg/dL Estim Creat Clear Calc 105.1 112.8 Estimated GFR > 60 > 60 Random Glucose 120 H 97 (60-115) mg/dL Calcium 9.5 9.2 (8.4-10.2) mg/dL Magnesium (1.6-2.6) mg/dL Total Bilirubin (0.0-1.0) mg/dL AST (5-31) U/L ALT (0-31) U/L Alkaline Phosphatase (39-117) U/L Troponin I High Sens (<3.5-17.0) ng/L Total Protein (6.5-8.0) g/dL Albumin (3.5-5.0) g/dL TSH 3.80 (0.32-4.0) uIU/mL Random Cortisol 13.5 ug/dL Urine Color Urine Appearance Urine pH (5.0-9.0) Ur Specific [place] (1.005-1.025) Urine Protein (Neg-Trace) mg/dL Urine Glucose (UA) (Negative) mg/dL Urine Ketones (Negative) mg/dL Urine Blood (Negative) Urine Nitrite (Negative) Ur Leukocyte Esterase (Negative) Urine RBC (0-2) /HPF Urine WBC (0-5) /HPF Ur Squamous Epith Cells (0-2) /HPF Urine Bacteria (None Seen) Hyaline Casts (0-2) /LPF Urine Opiates Screen (Not Detect) Ur Buprenorphine Scrn (Not Detect) ng/mL Ur Oxycodone Screen (Not Detect) ng/mL Urine Methadone Screen (Not Detect) ng/mL Urine Fentanyl Screen (Not Detect) Ur Barbiturates Screen (Not Detect) Ur Phencyclidine Scrn (Not Detect) Ur Amphetamines Screen (Not Detect) U Benzodiazepines Scrn (Not Detect) Urine Cocaine Screen (Not Detect) U Marijuana (THC) Screen (Not Detect) COVID-19 (FEMI) (Negative) COVID-19 Clin Com Independent Interpretation I performed an independent interpretation of an: EKG and CT Scan Interpretation: EKG is very poor quality with artifact present. No obvious ST elevations, ventricular rate 76 beats per minute, normal QTC normal HI interval CT head without any acute edema or bleed Radiology Impression Discussion of test interpretation with radiology: I have reviewed the radiologist's reading. Independent Historian Clinical information obtained from an independent historian. History obtained from or confirmed by: Spouse External Record Review External record reviewed: Office record, Outpatient record, Prior outpatient labs and Prior outpatient radiology Prescription Management I considered prescription management with: Pain Medication and Other (Antihypertensive) Chronic Conditions Patient?s care impacted by: Hypertension Critical Care Time Critical Care Time Critical Care Time: Yes Total Critical Care Time: 33 Attestation: I have personally provided critical care time exclusive of time spent on separately billable procedures. Time includes review of lab data, radiology results, bedside reassessment after administration of IV vasoactive medications, and monitoring for potential decompensation. Intervention performed as documented. Discharge Plan Discharge Clinical Impression: Hypertensive urgency Patient Disposition: Admitted As Inpatient Interventions: Admission Worksheet (ED) Last Done: 01/05/24 16:40 Discharge Date/Time: 01/05/24 17:33
[2024-01-04 12:52] LABS: MANUAL DIFF FLAG NO
[2024-01-04 12:54] LABS: Basophils Absolute Auto 0.1 X10*3/uL (0.0-0.2); Basophils Percent Auto 0.9 % (0-2); Eosinophils Absolute Auto 0.1 X10*3/uL (0.0-0.4); Eosinophils Percent Auto 1.6 % (0-4); Hemoglobin 13.4 g/dl (12.0-16.0); Imm Gran Abs Auto 0.03 X10*3/uL (0.00-0.03); Imm Gran Pct Auto 0.4 % (0.0-0.4); Lymphocytes Absolute Auto 1.8 X10*3/uL (1.2-4.9); Lymphocytes Percent Auto 22.8 % (20-40); Mean Corpuscular HGB Conc 34.4 g/dl (31.0-35.0); Mean Corpuscular Hemoglobin 27.6 pg (27.0-33.0); Mean Corpuscular Volume 80.4 fL (80.0-98.0); Mean Platelet Volume 9.4 fL (9.4-12.3); Monocytes Absolute Auto 0.6 X10*3/uL (0.1-1.2); Neutrophils Absolute Auto 5.4 x10*3/uL (2.0-8.3); Neutrophils Percent Auto 67.3 % (45-73); Platelet Count 290 X10*3/uL (160-400); Red Blood Count 4.85 X10*6/uL (4.20-5.50); Red Cell Distribution Width 13.2 % (11.0-16.0)
[2024-01-04 13:10] LABS: COVID-19 Test Negative (Negative); IDNOW Serial# 152EDE1D
[2024-01-04 13:11] LABS: Alanine Aminotransferase 15 U/L (0-31); Albumin Level 4.2 g/dL (3.5-5.0); Alkaline Phosphatase 67 U/L (39-117); Anion Gap 10 (12-20); Aspartate Amino Transferase 17 U/L (5-31); Bilirubin Total 0.3 mg/dL (0.0-1.0); Blood Urea Nitrogen 11 mg/dL (9-16); Calcium 9.4 mg/dL (8.4-10.2); Carbon Dioxide 25 mmol/L (22-29); Chloride 107 mmol/L (96-108); Creatinine Clr Calc Pharmacy 117.9; Estimated Glomerular Filt Rate > 60; Glucose Random 106 mg/dL (60-115); Magnesium 1.9 mg/dL (1.6-2.6); Potassium 3.7 mmol/L (3.3-5.1); Sodium 138 mmol/L (135-145); Total Protein 7.3 g/dL (6.5-8.0)
[2024-01-04 13:20] LABS: Troponin-I High Sensitivity < 2.7 ng/L (<3.5-17.0)
--- NOTE | 2024-01-04 16:53 | PC.NURSE ---
reports increasing headache. BP also rising. denies changes in vision.
[2024-01-04] MEDS: lisinopriL 10 MG TABLET 30 MG PO (17:05)
[2024-01-04] MEDS: Ketorolac Tromethamine 30 MG/ML VIAL IM (17:06)
[2024-01-04 17:09] LABS: Appearance Urine Clear; Color Urine Yellow; Glucose Urine UA Negative (Negative); Leukocyte Esterase Urine Trace (Negative); Nitrite Urine Negative (Negative); UMIC TRIGGER UACC YES; Urine Blood Negative (Negative); Urine Ketones Negative (Negative); Urine Protein Negative (Neg-Trace)
[2024-01-04 17:32] LABS: Bacteria Urine None Seen (None Seen); Hyaline Casts Urine 0-2 /LPF (0-2); RBC Urine 0-2 /HPF (0-2); Squamous Epithelial Cell Urine 0-2 /HPF (0-2); WBC Urine 0-5 /HPF (0-5)
[2024-01-04] MEDS: Labetalol HCL 100 MG/20 ML VIAL 10 MG IVPUSH (17:58)
--- NOTE | 2024-01-04 18:01 | PC.NURSE ---
continues to be hypertensive s/p lisinopril. IV established, labetalol given.
--- NOTE | 2024-01-04 20:03 | PC.NURSE ---
assumed care of pt at 1900
[2024-01-04] MEDS: hydrALAZINE HCl 20 MG/ML VIAL IVPUSH (20:08)
[2024-01-04] MEDS: Nitroglycerin 2 % Oint 1 GM Packet 0.5 INCH TRANSDERMA (20:09)
--- NOTE | 2024-01-04 20:10 | P.HPHOSP_ITS ---
History of Present Illness Date of Service: 01/04/24 Attending physician on admission: Erlinda Guzman Chief Complaint: headache, htn 48-year-old female with history of hypertension, history of pulmonary embolism 2020 no longer on anticoagulation, venous ulcer LLE following with vascular surgery presented to the ED earlier today for evaluation of uncontrolled blood pressures with headache. She reports she has had diffuse pressure-like headache and lightheadedness ongoing for several weeks but worse today. She has had worsening blood pressure control since the end of November and has been working with her primary care provider on optimizing blood pressure management. She reports last night she called her PCP due to elevated blood pressure of 192/102 and increase lisinopril to 20 mg. Despite this, blood pressure remains significantly elevated this morning. She denies any vision changes, nausea, vomiting, shortness of breath, palpitations, syncope, chest pain. Denies any illicit drug use. No cigarette smoking or alcohol use. Since arrival, patient has been hypertensive to 213/86 with brief improvement to 186/100 following 10 mg labetalol however increased back to 223/116 on my examination. Vital signs are otherwise within normal limits. Hematology studies unremarkable. Chemistries reveal normal renal function and electrolyte levels. Troponin undetectable. Urinalysis unremarkable. Urine drug screen pending. Negative for COVID-19. Head CT negative for any acute intracranial abnormality. Chest x-ray unremarkable. EKG shows NSR, rate 76 without any acute ischemic changes. The patient will be observed overnight for hypertensive urgency. Review of Systems 2 Review of Systems: Yes all other systems are reviewed and are negative [facility] Medical History Venous ulcer Pulmonary embolism COVID-19 HTN (hypertension) Surgical History No significant past surgical history Social History Household Members: Family Housing: House Do you presently have visiting nurse or other home services: No Patient Tobacco Use Status: Never used Tobacco Advance Directives: No Advance Directives Information Provided: No Advance Directives Date on File: 01/16/21 service: No Current occupational status: disabled Meds Allergies Allergy/AdvReac Type Severity Reaction Status Date / Time sulfamethoxazole Allergy Unknown VOMITING Verified 01/04/24 11:56 [From BACTRIM] trimethoprim [From BACTRIM] Allergy Unknown VOMITING Verified 01/04/24 11:56 naproxen [NAPROXEN] AdvReac Intermediate NAUSEA & Verified 01/04/24 11:56 VOMITING Active Medications: Current Medications Acetaminophen (Acetaminophen 325 Mg Tablet) 650 mg PO Q6H PRN PRN Reason: Pain, Mild (Pain Scale 1-3), fever or headache Amlodipine Besylate (Amlodipine Besylate 10 Mg Tablet) 10 mg PO DAILY STEPHIE; Protocol Calcium Carbonate (Calcium Carbonate 750 Mg Tab.Chew) 750 mg PO Q4H PRN PRN Reason: Heartburn Enoxaparin Sodium (Enoxaparin Sodium 40 Mg/0.4 Ml Syringe) 40 mg SUBCUT Q24H [facility] Magnesium Hydroxide (Milk Of Magnesia 30 Ml Oral.Susp) 30 ml PO DAILY PRN PRN Reason: Constipation Melatonin (Melatonin 3 Mg Tablet) 6 mg PO BEDTIME PRN PRN Reason: Insomnia Sodium Chloride (0.9 % Sodium Chloride Flush 3 Ml Syringe) 3 ml IVFLUSH QSHIFT [facility] Home Medications ?Medication ?Instructions ?Recorded ?Confirmed ?Last Taken ?Type buspirone 15 mg tablet 15 mg PO BID 01/16/21 01/04/24 01/04/24 History hydrocodone 5 mg-acetaminophen 325 1 tab PO DAILY PRN pain 01/16/21 01/04/24 Unknown History mg tablet multivitamin 1 tab PO DAILY 01/16/21 01/04/24 01/04/24 History sertraline 100 mg tablet 100 mg PO DAILY 01/16/21 01/04/24 01/04/24 History tizanidine 2 mg tablet 2 mg PO Q72H PRN Spasms 01/16/21 01/04/24 Unknown History lisinopril 10 mg tablet 30 mg PO DAILY 01/04/24 01/04/24 01/03/24 History Physical Exam 2 Vital Signs and Narrative: Vital Signs: Last Vital Signs Temp 98.1 F 01/04/24 18:33 Pulse 69 01/04/24 18:33 Resp 18 01/04/24 18:33 BP 193/105 H 01/04/24 20:08 Pulse Ox 96 01/04/24 18:33 O2 Del Method Room Air 01/04/24 18:33 BMI result Body Mass Index 42.7 Results Labs 01/04/24 12:47 01/04/24 12:47 Labs: Laboratory Results - last 24 hr 01/04/24 01/04/24 01/04/24 12:42 12:47 17:01 MCV 80.4 MCH 27.6 MCHC 34.4 RDW 13.2 Plt Count 290 MPV 9.4 Immature Gran % (Auto) 0.4 Neut % (Auto) 67.3 Lymph % (Auto) 22.8 [place] % (Auto) 7.0 Eos % (Auto) 1.6 Baso % (Auto) 0.9 Lymph # (Auto) 1.8 [place] # (Auto) 0.6 Eos # (Auto) 0.1 Baso # (Auto) 0.1 Abs Immat Gran (auto) 0.03 Absolute Neuts (auto) 5.4 Absolute Nucleated RBC 0.000 Nucleated RBC % (auto) 0.0 Anion Gap 10 L Estim Creat Clear Calc 117.9 Estimated GFR > 60 Random Glucose 106 Calcium 9.4 Magnesium 1.9 Total Bilirubin 0.3 AST 17 ALT 15 Alkaline Phosphatase 67 Troponin I High Sens < 2.7 Total Protein 7.3 Albumin 4.2 Urine Color Yellow Urine Appearance Clear Urine pH 6.0 Ur Specific [place] 1.020 Urine Protein Negative Urine Glucose (UA) Negative Urine Ketones Negative Urine Blood Negative Urine Nitrite Negative Ur Leukocyte Esterase Trace H Urine RBC 0-2 Urine WBC 0-5 Ur Squamous Epith Cells 0-2 Urine Bacteria None Seen Hyaline Casts 0-2 COVID-19 (FEMI) Negative COVID-19 Clin Com See Note Imaging Radiologist's Impressions: Impressions Chest X-Ray 01/04/24 11:49 IMPRESSION: Unremarkable examination. Electronically signed by: Campbell Delaney MD 01/04/2024 03:14 PM EDT RP Head CT 01/04/24 11:58 IMPRESSION: Normal CT scan of the head. Electronically signed by: Kemal Ortega MD 01/04/2024 02:22 PM EDT RP Assessment and Plan (1) Hypertensive urgency: Status: Acute Plan 48-year-old female with history of hypertension, history of pulmonary embolism 2020 no longer on anticoagulation, venous ulcer LLE following with vascular surgery to be observed for hypertensive urgency #Hypertensive urgency -Given 20 mg IV labetalol in ED. Add 20 mg IV hydralazine and 0.5 in nitroglycerin -continue lisinopril increased to 30 mg daily. Add amlodipine 10 mg p.o. in the morning -troponin level undetectable, no end-organ damage. EKG without acute ischemic changes. Head CT without acute intracranial abn -check echocardiogram. Evaluate renal Doppler -cardiology consult -monitor on telemetry # history of PE -2020 -provoked, COVID-19, no longer on anticoagulation # chronic venous ulcer LLE -wound care consult DVT prophylaxis-Lovenox Full code Quality Stroke Does the patient have a stroke diagnosis?: No VTE Prior VTE?: Yes VTE Risk Level:: Medical - moderate - high VTE Device Contraindication: Treatment Not Indicated VTE Drug Contraindication: N/A - Med Ordered
--- NOTE | 2024-01-04 20:18 | PHA.MEDREC ---
Addendum entered by Brian Morales [facility] 01/04/24 20:32: Med rec reviewed Original Note: Pharmacy Consult ? Medication Reconciliation Pharmacy has completed the medication reconciliation. Spoke to patient to confirm med list. patient was able to tell me what medications she takes. Patient stated she is not taking Dexamethasone 6 mg, 05/15 (she has an IUD), and Eliquis 5 mg. Patient states she had covid in 2020 and developed a blood clot. she was on Eliquis for 8 months then stopped. Patient states she is now taking Lisinopril 30 mg daily because her blood pressure has been high and the Dr told her to take 30 mg
[2024-01-04] MEDS: Enoxaparin Sodium 40 MG/0.4 ML SYRINGE SUBCUT (21:40)
[2024-01-04 21:58] LABS: Amphetamine Screen Urine Not Detected (Not Detect); Barbiturates, Urine Not Detected (Not Detect); Benzodiazepines Screen Urine Not Detected (Not Detect); Buprenorphine Scr Not Detected (Not Detect); Cannabinoid Screen Urine Not Detected (Not Detect); Cocaine Screen Urine Not Detected (Not Detect); Fentanyl, urine Not Detected (Not Detect); Methadone Screen, Urine Not Detected (Not Detect); Opiate Screen Urine Not Detected (Not Detect); Oxycodone Screen Urine Not Detected (Not Detect); Phencyclidine Screen Urine Not Detected (Not Detect)
[2024-01-04] MEDS: HYDROcodone Bit/Acetam 5/325 TABLET 1 TAB PO (22:02)
[2024-01-04] MEDS: Morphine Sulfate 2 MG/ML CARTRIDGE IVPUSH (23:54)
[2024-01-05] VITALS (8 sets, daily range): BP systolic 158–199; BP diastolic 75–92; PULSE 72–87; RESP 12–18; TEMP 36.7–37.1; O2SAT 94–98
[2024-01-05 05:11] LABS: MANUAL DIFF FLAG NO
[2024-01-05 05:14] LABS: Basophils Absolute Auto 0.1 X10*3/uL (0.0-0.2); Basophils Percent Auto 0.5 % (0-2); Eosinophils Percent Auto 0.1 % (0-4); Hematocrit 38.9 % (37.0-47.0); Hemoglobin 13.3 g/dl (12.0-16.0); Imm Gran Abs Auto 0.02 X10*3/uL (0.00-0.03); Imm Gran Pct Auto 0.2 % (0.0-0.4); Lymphocytes Absolute Auto 1.3 X10*3/uL (1.2-4.9); Lymphocytes Percent Auto 12.8 % (20-40); Mean Corpuscular HGB Conc 34.2 g/dl (31.0-35.0); Mean Corpuscular Hemoglobin 27.4 pg (27.0-33.0); Mean Platelet Volume 9.8 fL (9.4-12.3); Monocytes Absolute Auto 0.4 X10*3/uL (0.1-1.2); Monocytes Percent Auto 4.3 % (2-11); Neutrophils Absolute Auto 8.2 x10*3/uL (2.0-8.3); Neutrophils Percent Auto 82.1 % (45-73); Platelet Count 290 X10*3/uL (160-400); Red Blood Count 4.86 X10*6/uL (4.20-5.50); Red Cell Distribution Width 13.2 % (11.0-16.0)
[2024-01-05 05:34] LABS: Anion Gap 15 (12-20); Blood Urea Nitrogen 12 mg/dL (9-16); Calcium 9.5 mg/dL (8.4-10.2); Carbon Dioxide 20 mmol/L (22-29); Chloride 107 mmol/L (96-108); Creatinine Clr Calc Pharmacy 105.1; Estimated Glomerular Filt Rate > 60; Glucose Random 120 mg/dL (60-115); Potassium 3.5 mmol/L (3.3-5.1); Sodium 138 mmol/L (135-145)
--- NOTE | 2024-01-05 07:00 | CA_ITS ---
Transthoracic Echocardiogram Patient (Last, First, Middle): Elizabeth Marc, Gender: Female Date of : 1975 Age: 48 Procedure Date: 01/05/2024 Procedure Type: Transthoracic Echocardiogram Location: ER Height: 157.48 cm Weight: 105.69 kg BSA: 2.04 m2 Heart Rate: 84 bpm BP: 162 / 88 mmHg Power Line Lineman: SB Referring MD: Bushra WATSON Symptoms: Hypertensive urgency Study Quality: Adequate ECG Rhythm: Sinus Conclusions: - Normal left ventricular size, thickness, systolic function, and wall motion. The visually estimated ejection fraction is between 65-70%. Diastolic function is normal for age. - Normal right ventricular cavity size and systolic function. Findings Procedure Information Contrast agent, definity, is being given per protocol without apparent complications. Left Ventricle Normal left ventricular size, thickness, systolic function, and wall motion. The visually estimated ejection fraction is between 65-70%. Diastolic function is normal for age. Right Ventricle Normal right ventricular cavity size and systolic function. Atria Both atria are normal in size. Aortic Valve The aortic valve was not well visualized. There is no aortic valve stenosis. There is no aortic valve regurgitation. Mitral Valve There is no mitral valve regurgitation. There is no mitral valve stenosis. Pulmonic Valve The pulmonic valve is normal. There is no pulmonic valve regurgitation. Tricuspid Valve Normal tricuspid valve structure. There is no tricuspid valve regurgitation. Tricuspid regurgitation envelope is inadequate for calculation of right ventricular systolic pressure. Normal right atrial pressure. Great Vessels All visible segments of the aorta are normal in size. The visualized portions of the pulmonary artery and branches are normal. Venous The inferior vena cava is normal in size and collapses greater than 50% with inspiration. Pericardium/Pleural There is no evidence of pericardial effusion. Prior Study Comparison No significant change compared to prior study dated: 01/20/2021. Measurements 2D Linear Measurements IVSd: 0.92 0.6-0.9/0.6-1.0 cm LVIDd: 4.99 3.9-5.3/4.2-5.9 cm LVIDd Index: 2.45 2.4-3.2/2.2-3.1 cm/m2 LVIDs: 2.60 2.0-3.6 cm LVPWd: 0.79 0.7-1.1 cm LA Diam: 4.10 2.7-3.8/3.0-4.0 cm LAIDs Index: 2.01 1.5-2.3 cm/m2 LV Mass: 184.27 67-162/88-224 g LV Mass Index: 90.33 43-95/49-115 g/m2 LVOT Diam: 2.20 3.0+(-)1.3 cm 2D Systolic Function EF 4C: 67.60 >55% EF 2C: 77.40 >55% EF BiP: 72.00 >55% Mitral Valve MV Pk E: 0.82 MV PK A: 0.64 MV Decel Time: 225.00 E/A: 1.30 E'Lateral: 11.00 E'Medial: 8.49 E/E' Med: 9.70 E/E' Lat: 7.50 PHT: 66.00 MVA PHT: 3.33 Decel Morris: 3.65 Aortic Valve AoV Pk Hermes: 1.40 AoV Pk Grad: 8.00 RANDY: 3.91 LVOT LVOT Pk Hermes: 1.44 LVOT Mn Hermes: 0.92 LVOT VTI: 0.28 LVOT Pk Grad: 8.00 LVOT Mn Grad: 4.00 LVOT Diam: 2.20 LVOT Area: 3.80 Diastolic Function MV Pk E: 0.82 MV Pk A: 0.64 E/A: 1.30 E'Medial: 8.49 E/E' Med: 9.70 E' Laterial: 11.00 E/E' Lat: 7.50 Right Ventricle TAPSE (mm): 26.70 TVS' Hermes: 18.60 Tricuspid Valve RA Press: 3.00 Great Vessels Aorta Sinus of Valsalva: 2.60 2.0-3.5 cm Ao Asc: 2.80 2.1-3.4 cm Pulmonary Veins Pulm Vein S/D 2.00 Pulmonary Valve PV Pk Hermes: 0.92 Peak PV Grad: 3.00 Updated in Other Vendor System with Status of Final Juan Hamm MD electronically signed on 01/05/2024 6:04:00 PM with status of Final
--- NOTE | 2024-01-05 08:17 | PC.NURSE ---
echo being done at bedside
--- NOTE | 2024-01-05 08:22 | P.PNIM_ITS ---
Subjective Subjective Date of Service: 01/05/24 Physical Exam 2 Vital Signs: Vital Signs: Last Vital Signs Temp 98.1 F 01/05/24 04:27 Pulse 72 01/05/24 07:45 Resp 14 01/05/24 07:45 BP 162/88 H 01/05/24 07:45 Pulse Ox 94 01/05/24 07:45 O2 Del Method Room Air 01/05/24 07:45 BMI result Body Mass Index 42.7 Objective Data Active Medications Acetaminophen (Acetaminophen 325 Mg Tablet) 650 mg PO Q6H PRN PRN Reason: Pain, Mild (Pain Scale 1-3), fever or headache Amlodipine Besylate (Amlodipine Besylate 10 Mg Tablet) 10 mg PO DAILY ON LICENSE OF [facility]; Protocol Calcium Carbonate (Calcium Carbonate 750 Mg Tab.Chew) 750 mg PO Q4H PRN PRN Reason: Heartburn Enoxaparin Sodium (Enoxaparin Sodium 40 Mg/0.4 Ml Syringe) 40 mg SUBCUT Q24H ON LICENSE OF [facility] Last Admin: 01/04/24 21:40 Dose: 40 mg Documented By: JEREMY Magnesium Hydroxide (Milk Of Magnesia 30 Ml Oral.Susp) 30 ml PO DAILY PRN PRN Reason: Constipation Melatonin (Melatonin 3 Mg Tablet) 6 mg PO BEDTIME PRN PRN Reason: Insomnia Sodium Chloride (0.9 % Sodium Chloride Flush 3 Ml Syringe) 3 ml IVFLUSH QSHIFT ON LICENSE OF [facility] Last Admin: 01/05/24 01:14 Dose: Not Given Documented By: JEREMY Non-Admin Reason: Previously Administered Labs 01/05/24 04:43 01/05/24 04:43 Labs: Laboratory Results - last 24 hr 01/04/24 01/04/24 01/04/24 12:42 12:47 17:01 MCV 80.4 MCH 27.6 MCHC 34.4 RDW 13.2 Plt Count 290 MPV 9.4 Immature Gran % (Auto) 0.4 Neut % (Auto) 67.3 Lymph % (Auto) 22.8 Person % (Auto) 7.0 Eos % (Auto) 1.6 Baso % (Auto) 0.9 Lymph # (Auto) 1.8 Person # (Auto) 0.6 Eos # (Auto) 0.1 Baso # (Auto) 0.1 Abs Immat Gran (auto) 0.03 Absolute Neuts (auto) 5.4 Absolute Nucleated RBC 0.000 Nucleated RBC % (auto) 0.0 Anion Gap 10 L Estim Creat Clear Calc 117.9 Estimated GFR > 60 Random Glucose 106 Calcium 9.4 Magnesium 1.9 Total Bilirubin 0.3 AST 17 ALT 15 Alkaline Phosphatase 67 Troponin I High Sens < 2.7 Total Protein 7.3 Albumin 4.2 Urine Color Yellow Urine Appearance Clear Urine pH 6.0 Ur Specific [place] 1.020 Urine Protein Negative Urine Glucose (UA) Negative Urine Ketones Negative Urine Blood Negative Urine Nitrite Negative Ur Leukocyte Esterase Trace H Urine RBC 0-2 Urine WBC 0-5 Ur Squamous Epith Cells 0-2 Urine Bacteria None Seen Hyaline Casts 0-2 Urine Opiates Screen Not Detected Ur Buprenorphine Scrn Not Detected Ur Oxycodone Screen Not Detected Urine Methadone Screen Not Detected Urine Fentanyl Screen Not Detected Ur Barbiturates Screen Not Detected Ur Phencyclidine Scrn Not Detected Ur Amphetamines Screen Not Detected U Benzodiazepines Scrn Not Detected Urine Cocaine Screen Not Detected U Marijuana (THC) Screen Not Detected COVID-19 (FMEI) Negative COVID-19 Clin Com See Note 01/05/24 04:43 MCV 80.0 MCH 27.4 MCHC 34.2 RDW 13.2 Plt Count 290 MPV 9.8 Immature Gran % (Auto) 0.2 Neut % (Auto) 82.1 H Lymph % (Auto) 12.8 L Person % (Auto) 4.3 Eos % (Auto) 0.1 Baso % (Auto) 0.5 Lymph # (Auto) 1.3 Person # (Auto) 0.4 Eos # (Auto) 0.0 Baso # (Auto) 0.1 Abs Immat Gran (auto) 0.02 Absolute Neuts (auto) 8.2 Absolute Nucleated RBC 0.000 Nucleated RBC % (auto) 0.0 Anion Gap 15 Estim Creat Clear Calc 105.1 Estimated GFR > 60 Random Glucose 120 H Calcium 9.5 Magnesium Total Bilirubin AST ALT Alkaline Phosphatase Troponin I High Sens Total Protein Albumin Urine Color Urine Appearance Urine pH Ur Specific [place] Urine Protein Urine Glucose (UA) Urine Ketones Urine Blood Urine Nitrite Ur Leukocyte Esterase Urine RBC Urine WBC Ur Squamous Epith Cells Urine Bacteria Hyaline Casts Urine Opiates Screen Ur Buprenorphine Scrn Ur Oxycodone Screen Urine Methadone Screen Urine Fentanyl Screen Ur Barbiturates Screen Ur Phencyclidine Scrn Ur Amphetamines Screen U Benzodiazepines Scrn Urine Cocaine Screen U Marijuana (THC) Screen COVID-19 (FEMI) COVID-19 Clin Com Quality Stroke Does the patient have a stroke diagnosis?: No VTE Prior VTE?: Yes VTE Risk Level:: Medical - moderate - high VTE Device Contraindication: Treatment Not Indicated VTE Drug Contraindication: N/A - Med Ordered
--- NOTE | 2024-01-05 10:34 | MHC.CM.PN ---
CM met with Patient at bedside, in the ED and addressed PARADA with her (original was given to Patient and a copy will be placed on the chart). Patient lives in a house with her /HCP/Collins, 2 adult children, and a 12 year old child and she is functionally independent. Home self care is the goal and CM has initiated and will follow for dc planning. PCP is Dr. Daysi Beckett and will transport to home.
--- NOTE | 2024-01-05 10:57 | P.DS_ITS ---
DS: Providers Provider Date of Service: 01/05/24 Date of admission: 01/04/24 20:06 Date of discharge: 01/05/24 Primary care physician: Daysi Beckett MD Admitting clinician: Bushra Johnson Attending physician on admission: Erlinda Guzman Consults: 01/04/24 20:06 Consult to Cardiology Routine Consulting Provider: [facility] Reason for consultation: Hypertensive urgency 01/04/24 20:09 Consult to Wound Care Routine Reason for consultation: Venous ulcer LLE 01/05/24 09:01 Consult to Nephrology Routine Consulting Provider: [facility] Reason for consultation: MARK ANTHONY Attending physician on discharge: Ramsey Zaragoza Discharging clinician: Bushra Johnson DS: Diagnosis Discharge Diagnosis (1) Hypertensive urgency: Status: Acute DS: Summary Hospital Course Hospital Course: HPI on admission by this provider 01/04: 48-year-old female with history of hypertension, history of pulmonary embolism 2020 no longer on anticoagulation, venous ulcer LLE following with vascular surgery presented to the ED earlier today for evaluation of uncontrolled blood pressures with headache. She reports she has had diffuse pressure-like headache and lightheadedness ongoing for several weeks but worse today. She has had worsening blood pressure control since the end of November and has been working with her primary care provider on optimizing blood pressure management. She reports last night she called her PCP due to elevated blood pressure of 192/102 and increase lisinopril to 20 mg. Despite this, blood pressure remains significantly elevated this morning. She denies any vision changes, nausea, vomiting, shortness of breath, palpitations, syncope, chest pain. Denies any illicit drug use. No cigarette smoking or alcohol use. Since arrival, patient has been hypertensive to 213/86 with brief improvement to 186/100 following 10 mg labetalol however increased back to 223/116 on my examination. Vital signs are otherwise within normal limits. Hematology studies unremarkable. Chemistries reveal normal renal function and electrolyte levels. Troponin undetectable. Urinalysis unremarkable. Urine drug screen pending. Negative for COVID-19. Head CT negative for any acute intracranial abnormality. Chest x-ray unremarkable. EKG shows NSR, rate 76 without any acute ischemic changes. The patient will be observed overnight for hypertensive urgency. Hospital course: Physical Exam Vital Signs: Vital Signs: Last Vital Signs Temp 98.1 F 01/05/24 04:27 Pulse 72 01/05/24 10:28 Resp 12 01/05/24 10:28 BP 177/86 H 01/05/24 10:28 Pulse Ox 95 01/05/24 10:28 O2 Del Method Room Air 01/05/24 10:28 BMI result Body Mass Index 42.7 DS: Data Data Completed and Pending Labs on day of discharge: Laboratory Results - last 24 hr 01/04/24 01/04/24 01/04/24 12:42 12:47 17:01 WBC 8.0 RBC 4.85 Hgb 13.4 Hct 39.0 MCV 80.4 MCH 27.6 MCHC 34.4 RDW 13.2 Plt Count 290 MPV 9.4 Immature Gran % (Auto) 0.4 Neut % (Auto) 67.3 Lymph % (Auto) 22.8 [place] % (Auto) 7.0 Eos % (Auto) 1.6 Baso % (Auto) 0.9 Lymph # (Auto) 1.8 [place] # (Auto) 0.6 Eos # (Auto) 0.1 Baso # (Auto) 0.1 Abs Immat Gran (auto) 0.03 Absolute Neuts (auto) 5.4 Absolute Nucleated RBC 0.000 Nucleated RBC % (auto) 0.0 Sodium 138 Potassium 3.7 Chloride 107 Carbon Dioxide 25 Anion Gap 10 L BUN 11 Creatinine 0.66 Estim Creat Clear Calc 117.9 Estimated GFR > 60 Random Glucose 106 Calcium 9.4 Magnesium 1.9 Total Bilirubin 0.3 AST 17 ALT 15 Alkaline Phosphatase 67 Troponin I High Sens < 2.7 Total Protein 7.3 Albumin 4.2 Urine Color Yellow Urine Appearance Clear Urine pH 6.0 Ur Specific [place] 1.020 Urine Protein Negative Urine Glucose (UA) Negative Urine Ketones Negative Urine Blood Negative Urine Nitrite Negative Ur Leukocyte Esterase Trace H Urine RBC 0-2 Urine WBC 0-5 Ur Squamous Epith Cells 0-2 Urine Bacteria None Seen Hyaline Casts 0-2 Urine Opiates Screen Not Detected Ur Buprenorphine Scrn Not Detected Ur Oxycodone Screen Not Detected Urine Methadone Screen Not Detected Urine Fentanyl Screen Not Detected Ur Barbiturates Screen Not Detected Ur Phencyclidine Scrn Not Detected Ur Amphetamines Screen Not Detected U Benzodiazepines Scrn Not Detected Urine Cocaine Screen Not Detected U Marijuana (THC) Screen Not Detected COVID-19 (FEMI) Negative COVID-19 Clin Com See Note 01/05/24 04:43 WBC 10.0 RBC 4.86 Hgb 13.3 Hct 38.9 MCV 80.0 MCH 27.4 MCHC 34.2 RDW 13.2 Plt Count 290 MPV 9.8 Immature Gran % (Auto) 0.2 Neut % (Auto) 82.1 H Lymph % (Auto) 12.8 L [place] % (Auto) 4.3 Eos % (Auto) 0.1 Baso % (Auto) 0.5 Lymph # (Auto) 1.3 [place] # (Auto) 0.4 Eos # (Auto) 0.0 Baso # (Auto) 0.1 Abs Immat Gran (auto) 0.02 Absolute Neuts (auto) 8.2 Absolute Nucleated RBC 0.000 Nucleated RBC % (auto) 0.0 Sodium 138 Potassium 3.5 Chloride 107 Carbon Dioxide 20 L Anion Gap 15 BUN 12 Creatinine 0.74 Estim Creat Clear Calc 105.1 Estimated GFR > 60 Random Glucose 120 H Calcium 9.5 Magnesium Total Bilirubin AST ALT Alkaline Phosphatase Troponin I High Sens Total Protein Albumin Urine Color Urine Appearance Urine pH Ur Specific [place] Urine Protein Urine Glucose (UA) Urine Ketones Urine Blood Urine Nitrite Ur Leukocyte Esterase Urine RBC Urine WBC Ur Squamous Epith Cells Urine Bacteria Hyaline Casts Urine Opiates Screen Ur Buprenorphine Scrn Ur Oxycodone Screen Urine Methadone Screen Urine Fentanyl Screen Ur Barbiturates Screen Ur Phencyclidine Scrn Ur Amphetamines Screen U Benzodiazepines Scrn Urine Cocaine Screen U Marijuana (THC) Screen COVID-19 (FEMI) COVID-19 Clin Com Discharge Plan Discharge Referrals: Daysi Beckett MD [Primary Care Provider] - 1 Week Discharge Medications: No Action tizanidine 2 mg tablet 2 mg PO Q72H PRN (Reason: Spasms) sertraline 100 mg tablet 100 mg PO DAILY buspirone 15 mg tablet 15 mg PO BID multivitamin Tablet 1 tab PO DAILY hydrocodone-acetaminophen 5-325 mg tablet 1 tab PO DAILY PRN (Reason: pain) Rx Instructions: TAKES SELDOMLY lisinopril 10 mg tablet 30 mg PO DAILY Print Language: Turkmen Patient Instructions: Hypertensive Crisis (ED)
[2024-01-05] MEDS: Acetaminophen 325 MG TABLET 650 MG PO ×2 (11:38→18:21)
[2024-01-05] MEDS: amLODIPine Besylate 10 MG TABLET PO (11:40)
[2024-01-05] MEDS: busPIRone HCl 5 MG TABLET 15 MG PO ×2 (11:40→20:03)
[2024-01-05] MEDS: Sertraline HCL 100 MG TABLET PO (11:41)
--- NOTE | 2024-01-05 13:22 | P.PNIM_ITS ---
Subjective Subjective Date of Service: 01/05/24 Interval History: Seen in follow up for hypertensive urgency Interval history: Still with mild headache. No ongoing nausea, vomiting, lightheadedness. Renal doppler suspicious for MARK ANTHONY Review of Systems Review of Systems: Yes all other systems are reviewed and are negative Physical Exam 2 Vital Signs: Vital Signs: Last Vital Signs Temp 98.1 F 01/05/24 04:27 Pulse 75 01/05/24 12:48 Resp 18 01/05/24 12:48 BP 158/92 H 01/05/24 12:48 Pulse Ox 97 01/05/24 12:48 O2 Del Method Room Air 01/05/24 11:39 BMI result Body Mass Index 42.7 Constitutional - Awake and Alert, No apparent distress Eyes - PERRLA, EOMI Cardiovascular - S1S2, RRR, No edema Respiratory - Normal lung expansion, Normal respiratory effort, No respiratory distress, CTA bilaterally Extremities - no calf tenderness bilaterally, no swelling Skin - Warm/Dry Neurological - Alert & oriented x3 Psychological - Appropriate affect Objective Data Active Medications Acetaminophen (Acetaminophen 325 Mg Tablet) 650 mg PO Q6H PRN PRN Reason: Pain, Mild (Pain Scale 1-3), fever or headache Last Admin: 01/05/24 11:38 Dose: 650 mg Documented By: MANUEL Hydrocodone Bitart/Acetaminophen (Hydrocodone Bit/Acetam 5/325 Tablet) 1 tab PO DAILY PRN PRN Reason: Pain, Moderate(Pain Scale 4-6) Amlodipine Besylate (Amlodipine Besylate 10 Mg Tablet) 10 mg PO DAILY [facility]; Protocol Last Admin: 01/05/24 11:40 Dose: 10 mg Documented By: MANUEL Buspirone HCl (Buspirone Hcl 5 Mg Tablet) 15 mg PO BID [facility] Last Admin: 01/05/24 11:40 Dose: 15 mg Documented By: MANUEL Calcium Carbonate (Calcium Carbonate 750 Mg Tab.Chew) 750 mg PO Q4H PRN PRN Reason: Heartburn Enoxaparin Sodium (Enoxaparin Sodium 40 Mg/0.4 Ml Syringe) 40 mg SUBCUT Q24H [facility] Last Admin: 01/04/24 21:40 Dose: 40 mg Documented By: JEREMY Lisinopril (Lisinopril 40 Mg Tablet) 40 mg PO BEDTIME [facility]; Protocol Magnesium Hydroxide (Milk Of Magnesia 30 Ml Oral.Susp) 30 ml PO DAILY PRN PRN Reason: Constipation Melatonin (Melatonin 3 Mg Tablet) 6 mg PO BEDTIME PRN PRN Reason: Insomnia Multivitamins/Vitamin C (Multivitamin Tablet) 1 tab PO DAILY [facility] Sertraline HCl (Sertraline Hcl 100 Mg Tablet) 100 mg PO DAILY [facility] Last Admin: 01/05/24 11:41 Dose: 100 mg Documented By: MANUEL Sodium Chloride (0.9 % Sodium Chloride Flush 3 Ml Syringe) 3 ml IVFLUSH QSHIFT [facility] Last Admin: 01/05/24 08:28 Dose: Not Given Documented By: SARAI Non-Admin Reason: See Note Tizanidine HCl (Tizanidine Hcl 4 Mg Tablet) 2 mg PO Q72H PRN PRN Reason: Spasms Labs 01/05/24 04:43 01/05/24 04:43 Labs: Laboratory Results - last 24 hr 01/04/24 01/05/24 17:01 04:43 MCV 80.0 MCH 27.4 MCHC 34.2 RDW 13.2 Plt Count 290 MPV 9.8 Immature Gran % (Auto) 0.2 Neut % (Auto) 82.1 H Lymph % (Auto) 12.8 L [place] % (Auto) 4.3 Eos % (Auto) 0.1 Baso % (Auto) 0.5 Lymph # (Auto) 1.3 [place] # (Auto) 0.4 Eos # (Auto) 0.0 Baso # (Auto) 0.1 Abs Immat Gran (auto) 0.02 Absolute Neuts (auto) 8.2 Absolute Nucleated RBC 0.000 Nucleated RBC % (auto) 0.0 Anion Gap 15 Estim Creat Clear Calc 105.1 Estimated GFR > 60 Random Glucose 120 H Calcium 9.5 Urine Color Yellow Urine Appearance Clear Urine pH 6.0 Ur Specific [place] 1.020 Urine Protein Negative Urine Glucose (UA) Negative Urine Ketones Negative Urine Blood Negative Urine Nitrite Negative Ur Leukocyte Esterase Trace H Urine RBC 0-2 Urine WBC 0-5 Ur Squamous Epith Cells 0-2 Urine Bacteria None Seen Hyaline Casts 0-2 Urine Opiates Screen Not Detected Ur Buprenorphine Scrn Not Detected Ur Oxycodone Screen Not Detected Urine Methadone Screen Not Detected Urine Fentanyl Screen Not Detected Ur Barbiturates Screen Not Detected Ur Phencyclidine Scrn Not Detected Ur Amphetamines Screen Not Detected U Benzodiazepines Scrn Not Detected Urine Cocaine Screen Not Detected U Marijuana (THC) Screen Not Detected Assessment and Plan (1) Hypertensive urgency: Status: Acute Plan 48-year-old female with history of hypertension, history of pulmonary embolism 2020 no longer on anticoagulation, venous ulcer LLE following with vascular surgery to be observed for hypertensive urgency #Hypertensive urgency with suspect MARK ANTHONY on renal doppler -Given 20 mg IV labetalol in ED. Add 20 mg IV hydralazine and 0.5 in nitroglycerin -Per nephrology, increase lisinopril to 40mg daily, add amlodipine 10mg daily. Seen by cardiology recommending hctz, but nephro advises holding for now to prevent hypertension and concern for worsening renal function -troponin level undetectable, no end-organ damage. EKG without acute ischemic changes. Head CT without acute intracranial abn -echo pending -cardiology and nephro input appreciated -monitor on telemetry. Monitor blood pressures # history of PE -2020 -provoked, COVID-19, no longer on anticoagulation # chronic venous ulcer LLE -wound care consult DVT prophylaxis-Lovenox Full code Quality Stroke Does the patient have a stroke diagnosis?: No VTE Prior VTE?: Yes VTE Risk Level:: Medical - moderate - high VTE Device Contraindication: Treatment Not Indicated VTE Drug Contraindication: N/A - Med Ordered
--- NOTE | 2024-01-05 13:36 | PM.CNNEP ---
History of Present Illness Reason for Consult Consult date: 01/05/24 Chief Complaint Chief complaint: Hypertensive urgency History of Present Illness Narrative: 48-year-old female with history of hypertension, history of pulmonary embolism 2020 presented to the ER for evaluation of uncontrolled blood pressures with headache. She reports she has had diffuse pressure-like headache and lightheadedness ongoing for several weeks but gettingworse . She has had worsening blood pressure control since the end of November and has been working with her primary care provider on optimizing blood pressure management. Recently her lisinopril had been increased to 20 mg. Despite this, blood pressure remains significantly elevated. She denies any vision changes, nausea, vomiting, shortness of breath, palpitations, syncope, chest pain. Denies any illicit drug use. No cigarette smoking or alcohol use. Since arrival, patient has been hypertensive to 213/86 with brief improvement to 186/100 following 10 mg labetalol however increased back to 223/116 on my examination. Vital signs are otherwise within normal limits. Hematology studies unremarkable. Chemistries reveal normal renal function and electrolyte levels. Troponin undetectable. Urinalysis unremarkable. Urine drug screen pending. Negative for COVID-19. Head CT negative for any acute intracranial abnormality. Chest x-ray unremarkable. EKG shows NSR, rate 76 without any acute ischemic changes. Nephrology has been consulted to assist in her clinical management during her current hospital stay Review of Systems Review of Systems Yes all other systems are reviewed and are negative PMFSH Past Medical History Medical History Venous ulcer Pulmonary embolism COVID-19 HTN (hypertension) Surgical History Surgical History No significant past surgical history Social History Social History Household Members: Family Housing: House Do you presently have visiting nurse or other home services: No Patient Tobacco Use Status: Never used Tobacco Smoked in Last 30 Days: No Use of substances other than those prescribed or required for medical reasons: No Advance Directives: No Advance Directives Information Provided: No Advance Directives Date on File: 01/16/21 Nutrition Risks: No Nutritional Risk Patient : No service: No Current occupational status: disabled Meds Allergies Allergy/AdvReac Type Severity Reaction Status Date / Time sulfamethoxazole Allergy Unknown VOMITING Verified 01/04/24 11:56 [From BACTRIM] trimethoprim [From BACTRIM] Allergy Unknown VOMITING Verified 01/04/24 11:56 naproxen [NAPROXEN] AdvReac Intermediate NAUSEA & Verified 01/04/24 11:56 VOMITING Active Medications: Current Medications Acetaminophen (Acetaminophen 325 Mg Tablet) 650 mg PO Q6H PRN PRN Reason: Pain, Mild (Pain Scale 1-3), fever or headache Last Admin: 01/05/24 11:38 Dose: 650 mg Hydrocodone Bitart/Acetaminophen (Hydrocodone Bit/Acetam 5/325 Tablet) 1 tab PO DAILY PRN PRN Reason: Pain, Moderate(Pain Scale 4-6) Amlodipine Besylate (Amlodipine Besylate 10 Mg Tablet) 10 mg PO DAILY [facility]; Protocol Last Admin: 01/05/24 11:40 Dose: 10 mg Buspirone HCl (Buspirone Hcl 5 Mg Tablet) 15 mg PO BID [facility] Last Admin: 01/05/24 11:40 Dose: 15 mg Calcium Carbonate (Calcium Carbonate 750 Mg Tab.Chew) 750 mg PO Q4H PRN PRN Reason: Heartburn Enoxaparin Sodium (Enoxaparin Sodium 40 Mg/0.4 Ml Syringe) 40 mg SUBCUT Q24H [facility] Last Admin: 01/04/24 21:40 Dose: 40 mg Lisinopril (Lisinopril 40 Mg Tablet) 40 mg PO BEDTIME [facility]; Protocol Magnesium Hydroxide (Milk Of Magnesia 30 Ml Oral.Susp) 30 ml PO DAILY PRN PRN Reason: Constipation Melatonin (Melatonin 3 Mg Tablet) 6 mg PO BEDTIME PRN PRN Reason: Insomnia Multivitamins/Vitamin C (Multivitamin Tablet) 1 tab PO DAILY [facility] Sertraline HCl (Sertraline Hcl 100 Mg Tablet) 100 mg PO DAILY [facility] Last Admin: 01/05/24 11:41 Dose: 100 mg Sodium Chloride (0.9 % Sodium Chloride Flush 3 Ml Syringe) 3 ml IVFLUSH QSHIFT [facility] Last Admin: 01/05/24 08:28 Dose: Not Given Tizanidine HCl (Tizanidine Hcl 4 Mg Tablet) 2 mg PO Q72H PRN PRN Reason: Spasms Home Medications ?Medication ?Instructions ?Recorded ?Confirmed ?Last Taken ?Type buspirone 15 mg tablet 15 mg PO BID 01/16/21 01/04/24 01/04/24 History hydrocodone 5 mg-acetaminophen 325 1 tab PO DAILY PRN pain 01/16/21 01/04/24 Unknown History mg tablet multivitamin 1 tab PO DAILY 01/16/21 01/04/24 01/04/24 History sertraline 100 mg tablet 100 mg PO DAILY 01/16/21 01/04/24 01/04/24 History tizanidine 2 mg tablet 2 mg PO Q72H PRN Spasms 01/16/21 01/04/24 Unknown History lisinopril 10 mg tablet 30 mg PO DAILY 01/04/24 01/04/24 01/03/24 History Physical Exam Vital Signs: Last Vital Signs Temp 98.1 F 01/05/24 04:27 Pulse 75 01/05/24 12:48 Resp 18 01/05/24 12:48 BP 158/92 H 01/05/24 12:48 Pulse Ox 97 01/05/24 12:48 O2 Del Method Room Air 01/05/24 11:39 BMI result Body Mass Index 42.7 Const General: comfortable and no acute distress Orientation/consciousness: patient oriented x3 HEENT Head: Yes normocephalic Mouth: Normal oral and palatal mucosa present Eyes EOM: EOMs intact bilaterally Neck Neck: Yes supple Resp Auscultation: clear to auscultation bilaterally Cardio Jugular venous distension: no JVD Rate: regular rate GI Palpation (GI): Soft to palpation Auscultation: normal bowel sounds General: Yes no CVA tenderness Back/Spine/Pelvis Back: no CVA tenderness Skin General skin exam: no rashes or lesions noted Neuro General: patient oriented x3 and moves all extremities Extrem General: Yes no pedal edema Results Lab Results 01/05/24 04:43 01/05/24 04:43 Lab results: Chemistry 01/04/24 01/05/24 12:47 04:43 Sodium 138 138 Potassium 3.7 3.5 Carbon Dioxide 25 20 L BUN 11 12 Creatinine 0.66 0.74 Calcium 9.4 9.5 Hematology 01/04/24 01/05/24 12:47 04:43 WBC 8.0 10.0 Hgb 13.4 13.3 Plt Count 290 290 Urinalysis 01/04/24 17:01 Urine Color Yellow Urine Appearance Clear Urine pH 6.0 Ur Specific [place] 1.020 Urine Protein Negative Urine Glucose (UA) Negative Urine Ketones Negative Urine Blood Negative Urine Nitrite Negative Ur Leukocyte Esterase Trace H Urine RBC 0-2 Urine WBC 0-5 Ur Squamous Epith Cells 0-2 Hyaline Casts 0-2 Assessment and Plan (1) Hypertensive urgency: Status: Acute Plan Increased lisinopril to 40 mg daily Started Amlodipine 10 mg daily No has no retinopathy/proteinuria Renal function normal; K low normal TSH/Cortisol/Metanephrines/Aldosterone ordered Doppler of renal arteries; Low Na diet Will benefit from sleep study as oupt Shall follow up with me in office in 2 weeks after D/C Procedures Date of Service Date of Service: 01/05/24
--- NOTE | 2024-01-05 13:38 | P.CONCA_ITS ---
History of Present Illness History of Present Illness Date of Service: 01/05/24 Requesting physician: Bushra Johnson Chief complaint: Hypertensive urgency Narrative: 48-year-old female who is presenting with significantly elevated blood pressures. She said she had COVID-19 infection few years ago and at that time she was diagnosed with hypertension. More recently blood pressure has been poorly controlled in the last 6 weeks he has had recurrent headaches and elevated blood pressures. She has been in touch with her primary care physician will increase the lisinopril from 10-20 and eventually 30 mg. She said she was getting significant headaches and decided come to the emergency department. In the ER blood pressure was 217/111. She is denying any chest discomfort shortness of breath. She also had a renal ultrasound performed which is showing elevated velocities in the renal arteries bilaterally but no obvious stenosis was noted. She has been using ibuprofen 400-600 mg twice a day and regularly for the last 6 weeks for headaches. COUNTS INCLUDE 234 BEDS AT THE [facility] Past Medical History Medical History Venous ulcer Pulmonary embolism COVID-19 HTN (hypertension) Surgical History Surgical History No significant past surgical history Social History Social History Household Members: Family Housing: House Do you presently have visiting nurse or other home services: No Patient Tobacco Use Status: Never used Tobacco Smoked in Last 30 Days: No Use of substances other than those prescribed or required for medical reasons: No Advance Directives: No Advance Directives Information Provided: No Advance Directives Date on File: 01/16/21 Nutrition Risks: No Nutritional Risk Patient : No service: No Current occupational status: disabled Meds Allergies Allergy/AdvReac Type Severity Reaction Status Date / Time sulfamethoxazole Allergy Unknown VOMITING Verified 01/04/24 11:56 [From BACTRIM] trimethoprim [From BACTRIM] Allergy Unknown VOMITING Verified 01/04/24 11:56 naproxen [NAPROXEN] AdvReac Intermediate NAUSEA & Verified 01/04/24 11:56 VOMITING Active Medications: Current Medications Acetaminophen (Acetaminophen 325 Mg Tablet) 650 mg PO Q6H PRN PRN Reason: Pain, Mild (Pain Scale 1-3), fever or headache Last Admin: 01/05/24 11:38 Dose: 650 mg Hydrocodone Bitart/Acetaminophen (Hydrocodone Bit/Acetam 5/325 Tablet) 1 tab PO DAILY PRN PRN Reason: Pain, Moderate(Pain Scale 4-6) Amlodipine Besylate (Amlodipine Besylate 10 Mg Tablet) 10 mg PO DAILY [facility]; Protocol Last Admin: 01/05/24 11:40 Dose: 10 mg Buspirone HCl (Buspirone Hcl 5 Mg Tablet) 15 mg PO BID [facility] Last Admin: 01/05/24 11:40 Dose: 15 mg Calcium Carbonate (Calcium Carbonate 750 Mg Tab.Chew) 750 mg PO Q4H PRN PRN Reason: Heartburn Enoxaparin Sodium (Enoxaparin Sodium 40 Mg/0.4 Ml Syringe) 40 mg SUBCUT Q24H [facility] Last Admin: 01/04/24 21:40 Dose: 40 mg Lisinopril (Lisinopril 40 Mg Tablet) 40 mg PO BEDTIME [facility]; Protocol Magnesium Hydroxide (Milk Of Magnesia 30 Ml Oral.Susp) 30 ml PO DAILY PRN PRN Reason: Constipation Melatonin (Melatonin 3 Mg Tablet) 6 mg PO BEDTIME PRN PRN Reason: Insomnia Multivitamins/Vitamin C (Multivitamin Tablet) 1 tab PO DAILY [facility] Sertraline HCl (Sertraline Hcl 100 Mg Tablet) 100 mg PO DAILY [facility] Last Admin: 01/05/24 11:41 Dose: 100 mg Sodium Chloride (0.9 % Sodium Chloride Flush 3 Ml Syringe) 3 ml IVFLUSH QSHIFT [facility] Last Admin: 01/05/24 08:28 Dose: Not Given Tizanidine HCl (Tizanidine Hcl 4 Mg Tablet) 2 mg PO Q72H PRN PRN Reason: Spasms Home Medications ?Medication ?Instructions ?Recorded ?Confirmed ?Last Taken ?Type buspirone 15 mg tablet 15 mg PO BID 01/16/21 01/04/24 01/04/24 History hydrocodone 5 mg-acetaminophen 325 1 tab PO DAILY PRN pain 01/16/21 01/04/24 Unknown History mg tablet multivitamin 1 tab PO DAILY 01/16/21 01/04/24 01/04/24 History sertraline 100 mg tablet 100 mg PO DAILY 01/16/21 01/04/24 01/04/24 History tizanidine 2 mg tablet 2 mg PO Q72H PRN Spasms 01/16/21 01/04/24 Unknown History lisinopril 10 mg tablet 30 mg PO DAILY 01/04/24 01/04/24 01/03/24 History Physical Exam 2 Vital Signs: Vital Signs: Last Vital Signs Temp 98.1 F 01/05/24 04:27 Pulse 75 01/05/24 12:48 Resp 18 01/05/24 12:48 BP 158/92 H 01/05/24 12:48 Pulse Ox 97 01/05/24 12:48 O2 Del Method Room Air 01/05/24 11:39 BMI result Body Mass Index 42.7 GENERAL APPEARANCE: in no acute distress, pleasant. NECK: no carotid bruit, no jugular venous distention. SKIN: no suspicious lesions, warm and dry. HEART: no murmurs, regular rate and rhythm. LUNGS: clear to auscultation bilaterally. ABDOMEN: soft, nontender. EXTREMITIES: no edema. PERIPHERAL PULSES: equal. NEUROLOGIC: No gross deficits, AAO X 3 Objective Labs and Meds 01/05/24 04:43 01/05/24 04:43 Lab results: Laboratory Results - last 24 hr 01/04/24 01/05/24 17:01 04:43 WBC 10.0 RBC 4.86 Hgb 13.3 Hct 38.9 MCV 80.0 MCH 27.4 MCHC 34.2 RDW 13.2 Plt Count 290 MPV 9.8 Immature Gran % (Auto) 0.2 Neut % (Auto) 82.1 H Lymph % (Auto) 12.8 L [place] % (Auto) 4.3 Eos % (Auto) 0.1 Baso % (Auto) 0.5 Lymph # (Auto) 1.3 [place] # (Auto) 0.4 Eos # (Auto) 0.0 Baso # (Auto) 0.1 Abs Immat Gran (auto) 0.02 Absolute Neuts (auto) 8.2 Absolute Nucleated RBC 0.000 Nucleated RBC % (auto) 0.0 Sodium 138 Potassium 3.5 Chloride 107 Carbon Dioxide 20 L Anion Gap 15 BUN 12 Creatinine 0.74 Estim Creat Clear Calc 105.1 Estimated GFR > 60 Random Glucose 120 H Calcium 9.5 Urine Color Yellow Urine Appearance Clear Urine pH 6.0 Ur Specific [place] 1.020 Urine Protein Negative Urine Glucose (UA) Negative Urine Ketones Negative Urine Blood Negative Urine Nitrite Negative Ur Leukocyte Esterase Trace H Urine RBC 0-2 Urine WBC 0-5 Ur Squamous Epith Cells 0-2 Urine Bacteria None Seen Hyaline Casts 0-2 Urine Opiates Screen Not Detected Ur Buprenorphine Scrn Not Detected Ur Oxycodone Screen Not Detected Urine Methadone Screen Not Detected Urine Fentanyl Screen Not Detected Ur Barbiturates Screen Not Detected Ur Phencyclidine Scrn Not Detected Ur Amphetamines Screen Not Detected U Benzodiazepines Scrn Not Detected Urine Cocaine Screen Not Detected U Marijuana (THC) Screen Not Detected Imaging Radiologist's impression: Impressions Chest X-Ray 01/04/24 11:49 IMPRESSION: Unremarkable examination. Electronically signed by: Campbell Delaney MD 01/04/2024 03:14 PM EDT RP Head CT 01/04/24 11:58 IMPRESSION: Normal CT scan of the head. Electronically signed by: Kemal Ortega MD 01/04/2024 02:22 PM EDT RP Renal Ultrasound 01/04/24 20:17 IMPRESSION: Elevated velocities in the renal arteries bilaterally suggesting some degree of possible renal artery stenosis. CT angiography could be performed for further evaluation if clinical suspicion is high. Electronically signed by: Campbell Delaney MD 01/04/2024 10:05 PM EDT RP Renal Ultrasound 01/04/24 20:17 IMPRESSION: Elevated velocities in the renal arteries bilaterally suggesting some degree of possible renal artery stenosis. CT angiography could be performed for further evaluation if clinical suspicion is high. Electronically signed by: Campbell Delaney MD 01/04/2024 10:05 PM EDT RP Assessment and Plan (1) Hypertensive urgency: Status: Acute Plan Pleasant 48 year female who is presenting with significantly elevated blood pressure and headaches. She has been getting headaches for last 6 weeks and has been using ibuprofen to treat that. She was only on lisinopril at home. Currently amlodipine 10 mg has been added to her regimen. She is on lisinopril 40 mg. I am adding hydrochlorothiazide 25 mg once a day. We will titrate medications and reassess her. Check echocardiogram to assess for any structural issues. She had renal ultrasound which was premature because she was not on 3 antihypertensive medicines with uncontrolled blood pressure. I think currently strategy should be adjusting her antihypertensive medications and reassessing her. We will not pursue any further workup for renal artery stenosis. She has a persistent headache which may improve with blood pressure control. If this does not improve then she need Neurology input. Please avoid IV hydralazine. Thank you for allowing me to participate in the care of your patient. Please feel free to contact me if you have any questions. Procedures Date of Service Date of Service: 01/05/24
--- NOTE | 2024-01-05 15:49 | PC.NURSE ---
headache improved per pt. still there but mild
[2024-01-05] MEDS: 0.9 % Sodium Chloride Flush 3 ML SYRINGE IVFLUSH (16:13)
[2024-01-05] MEDS: Enoxaparin Sodium 40 MG/0.4 ML SYRINGE SUBCUT (20:02)
[2024-01-05] MEDS: lisinopriL 40 MG TABLET PO (20:06)
[2024-01-06] VITALS (9 sets, daily range): BP systolic 158–220; BP diastolic 90–110; PULSE 75–85; RESP 18–19; TEMP 36–37.1; O2SAT 94–97
[2024-01-06] MEDS: Acetaminophen 325 MG TABLET 650 MG PO ×3 (02:36→14:44)
[2024-01-06 06:50] LABS: Anion Gap 12 (12-20); Blood Urea Nitrogen 11 mg/dL (9-16); Calcium 9.2 mg/dL (8.4-10.2); Carbon Dioxide 22 mmol/L (22-29); Chloride 110 mmol/L (96-108); Creatinine Clr Calc Pharmacy 112.8; Estimated Glomerular Filt Rate > 60; Glucose Random 97 mg/dL (60-115); Potassium 3.6 mmol/L (3.3-5.1); Sodium 140 mmol/L (135-145)
[2024-01-06 07:02] LABS: Cortisol Random 13.5 ug/dL
[2024-01-06] MEDS: Multivitamin TABLET 1 TAB PO (08:19)
[2024-01-06] MEDS: amLODIPine Besylate 10 MG TABLET PO (08:19)
[2024-01-06] MEDS: busPIRone HCl 5 MG TABLET 15 MG PO ×2 (08:19→20:09)
[2024-01-06] MEDS: Sertraline HCL 100 MG TABLET PO (08:19)
[2024-01-06] MEDS: carvediloL 6.25 MG TABLET PO ×2 (08:38→20:08)
[2024-01-06] MEDS: 0.9 % Sodium Chloride Flush 3 ML SYRINGE IVFLUSH (08:38)
[2024-01-06] MEDS: hydroCHLOROthiazide 25 MG TABLET PO (10:23)
[2024-01-06] MEDS: Butalb/Acetamin/Caff 50/325/40 TABLET 1 TAB PO (10:28)
--- NOTE | 2024-01-06 11:01 | PM.PNCARD ---
Subjective Subjective Date of Service: 01/06/24 Interval history: Seen examined at bedside. She is saying headache is little better. She had a normal CTA head on admission. Blood pressure is significantly elevated today. Echocardiography reserved was discussed with the patient-this was essentially normal. Physical Exam Vital Signs: Last Vital Signs Temp 98.6 F 01/06/24 08:00 Pulse 76 01/06/24 08:00 Resp 18 01/06/24 08:00 BP 188/100 H 01/06/24 09:44 Pulse Ox 94 01/06/24 08:00 O2 Del Method Room Air 01/06/24 08:00 BMI result Body Mass Index 42.7 GENERAL APPEARANCE: in no acute distress, pleasant. NECK: no carotid bruit, no jugular venous distention. SKIN: no suspicious lesions, warm and dry. HEART: no murmurs, regular rate and rhythm. LUNGS: clear to auscultation bilaterally. ABDOMEN: soft, nontender. EXTREMITIES: no edema. PERIPHERAL PULSES: equal. NEUROLOGIC: No gross deficits, AAO X 3 Objective Labs and Meds 01/05/24 04:43 01/06/24 06:21 Lab results: Laboratory Results - last 24 hr 01/06/24 06:21 Sodium 140 Potassium 3.6 Chloride 110 H Carbon Dioxide 22 Anion Gap 12 BUN 11 Creatinine 0.69 Estim Creat Clear Calc 112.8 Estimated GFR > 60 Random Glucose 97 Calcium 9.2 TSH 3.80 Random Cortisol 13.5 Progress Note: A&P Assessment and plan (1) Hypertensive urgency: Status: Acute Plan 48-year-old female presenting with significantly elevated blood pressure and headache. Echocardiography has shown normal biventricular function. No clinical cardiovascular symptoms currently. We added carvedilol 6.25 mg twice a day and hydrochlorothiazide was added yesterday. Nephrology is involved in working her up further. I think blood pressure can be managed by Nephrology. If any cardiovascular symptoms develop then please reconsult us. Signing off for now. Thank you for allowing me to participate in the care of your patient. Please feel free to contact me if you have any questions. Time Spent With Patient Time: Total time managing care of this patient today ____ minutes. Progress Note: Quality Stroke Does the patient have a stroke diagnosis?: No Procedures Date of Service Date of Service: 01/06/24
--- NOTE | 2024-01-06 12:47 | HO.PM.IMPN ---
Subjective Subjective Date of Service: 01/06/24 Interval History: Seen and examined this morning Follow-up for hypertensive urgency Blood pressure remains elevated No chest pain, palpitations, shortness breath, dizziness, blurry vision. Does report improving headache Review of Systems Review of Systems: Yes all other systems are reviewed and are negative Constitutional Constitutional: Denies chills and Denies fever(s) Cardiovascular Cardiovascular: Denies chest pain and Denies palpitations Endocrine Endocrine: Denies palpitations Physical Exam Vital Signs: Vital Signs: Last Vital Signs Temp 98.0 F 01/06/24 11:51 Pulse 78 01/06/24 11:51 Resp 18 01/06/24 08:00 BP 186/92 H 01/06/24 11:51 Pulse Ox 95 01/06/24 11:51 O2 Del Method Room Air 01/06/24 11:51 BMI result Body Mass Index 42.7 Const: General: cooperative, comfortable, no acute distress, alert and awake Nutritional Appearance: average body habitus Orientation/consciousness: patient oriented x3 Resp: Effort & Inspection: normal respiratory effort, able to speak in complete sentences, no respiratory distress and no use of accessory muscles Cardio: Rate: regular rate GI: Inspection: No distended Palpation (GI): Soft to palpation and nontender Neuro: General: patient oriented x3, moves all extremities and CN's II-XI intact bilaterally Extrem: Other: LLE lower leg wrapped in c/d/i sofia bandage General: Yes no pedal edema Objective Data Active Medications Acetaminophen (Acetaminophen 325 Mg Tablet) 650 mg PO Q6H PRN PRN Reason: Pain, Mild (Pain Scale 1-3), fever or headache Last Admin: 01/06/24 08:38 Dose: 650 mg Documented By: ANAIS Hydrocodone Bitart/Acetaminophen (Hydrocodone Bit/Acetam 5/325 Tablet) 1 tab PO DAILY PRN PRN Reason: Pain, Moderate(Pain Scale 4-6) Amlodipine Besylate (Amlodipine Besylate 10 Mg Tablet) 10 mg PO DAILY [facility]; Protocol Last Admin: 01/06/24 08:19 Dose: 10 mg Documented By: ANAIS Buspirone HCl (Buspirone Hcl 5 Mg Tablet) 15 mg PO BID [facility] Last Admin: 01/06/24 08:19 Dose: 15 mg Documented By: ANAIS Calcium Carbonate (Calcium Carbonate 750 Mg Tab.Chew) 750 mg PO Q4H PRN PRN Reason: Heartburn Carvedilol (Carvedilol 6.25 Mg Tablet) 6.25 mg PO BID [facility]; Protocol Last Admin: 01/06/24 08:38 Dose: 6.25 mg Documented By: ANAIS Enoxaparin Sodium (Enoxaparin Sodium 40 Mg/0.4 Ml Syringe) 40 mg SUBCUT Q24H [facility] Last Admin: 01/05/24 20:02 Dose: 40 mg Documented By: AMBROCIO Hydrochlorothiazide (Hydrochlorothiazide 25 Mg Tablet) 25 mg PO DAILY [facility]; Protocol Last Admin: 01/06/24 10:23 Dose: 25 mg Documented By: ANAIS Lisinopril (Lisinopril 40 Mg Tablet) 40 mg PO BEDTIME [facility]; Protocol Last Admin: 01/05/24 20:06 Dose: 40 mg Documented By: AMBROCIO Magnesium Hydroxide (Milk Of Magnesia 30 Ml Oral.Susp) 30 ml PO DAILY PRN PRN Reason: Constipation Melatonin (Melatonin 3 Mg Tablet) 6 mg PO BEDTIME PRN PRN Reason: Insomnia Multivitamins/Vitamin C (Multivitamin Tablet) 1 tab PO DAILY [facility] Last Admin: 01/06/24 08:19 Dose: 1 tab Documented By: ANAIS Sertraline HCl (Sertraline Hcl 100 Mg Tablet) 100 mg PO DAILY [facility] Last Admin: 01/06/24 08:19 Dose: 100 mg Documented By: ANAIS Sodium Chloride (0.9 % Sodium Chloride Flush 3 Ml Syringe) 3 ml IVFLUSH QSHIFT [facility] Last Admin: 01/06/24 08:38 Dose: 3 ml Documented By: ANAIS Tizanidine HCl (Tizanidine Hcl 4 Mg Tablet) 2 mg PO Q72H PRN PRN Reason: Spasms Labs 01/05/24 04:43 01/06/24 06:21 Labs: Laboratory Results - last 24 hr 01/06/24 06:21 Anion Gap 12 Estim Creat Clear Calc 112.8 Estimated GFR > 60 Random Glucose 97 Calcium 9.2 TSH 3.80 Random Cortisol 13.5 Assessment and Plan (1) Hypertensive urgency: Status: Acute Plan 48-year-old female with history of hypertension, history of pulmonary embolism 2020 no longer on anticoagulation, venous ulcer LLE following with vascular surgery to be observed for hypertensive urgency Hypertensive urgency with suspect MARK ANTHONY on renal doppler Continue lisinopril, Norvasc Hydrochlorothiazide, Coreg added Monitor blood pressure closely troponin level undetectable, no end-organ damage. EKG without acute ischemic changes. Head CT without acute intracranial abn Echo with preserved ejection fraction, no structural heart disease renal US with suggestion of renal artery stenosis - nephrology recommends CT angiogram - pending history of PE -2020 provoked, COVID-19, no longer on anticoagulation chronic venous ulcer LLE -wound care consult follows outpatient with vascular DVT prophylaxis-Lovenox Full code Quality Stroke Does the patient have a stroke diagnosis?: No VTE Prior VTE?: Yes VTE Risk Level:: Medical - moderate - high VTE Device Contraindication: Treatment Not Indicated VTE Drug Contraindication: N/A - Med Ordered
--- NOTE | 2024-01-06 16:03 | P.PNNP_ITS ---
Subjective Subjective Date of Service: 01/06/24 Interval history: Seen and examined this morning Follow-up for hypertensive urgency Blood pressure remains elevated No chest pain, palpitations, shortness breath, dizziness, blurry vision. Does report improving headache Physical Exam 2 Vital Signs: Vital Signs: Last Vital Signs Temp 98.0 F 01/06/24 11:51 Pulse 78 01/06/24 11:51 Resp 18 01/06/24 08:00 BP 186/92 H 01/06/24 11:51 Pulse Ox 95 01/06/24 11:51 O2 Del Method Room Air 01/06/24 11:51 BMI result Body Mass Index 42.7 Const: General: comfortable and no acute distress O rientation/consciousness: patient oriented x3 HEENT: Head: Yes normocephalic Mouth: Normal oral and palatal mucosa present Eyes: EOM: EOMs intact bilaterally Neck: Neck: Yes supple Resp: Auscultation: clear to auscultation bilaterally Cardio: Jugular venous distension: no JVD Rate: regular rate GI: Palpation (GI): Soft to palpation Auscultation: normal bowel sounds : General: Yes no CVA tenderness Back/Spine/Pelvis: Back: no CVA tenderness Skin: General skin exam: no rashes or lesions noted Neuro: General: patient oriented x3 and moves all extremities Extrem: General: Yes no pedal edema Objective Data Labs 01/05/24 04:43 01/06/24 06:21 Labs: Laboratory Results - last 24 hr 01/06/24 06:21 Sodium 140 Potassium 3.6 Chloride 110 H Carbon Dioxide 22 Anion Gap 12 BUN 11 Creatinine 0.69 Estim Creat Clear Calc 112.8 Estimated GFR > 60 Random Glucose 97 Calcium 9.2 TSH 3.80 Random Cortisol 13.5 Procedures Date of Service Date of Service: 01/06/24 Assessment & Plan Assessment and plan (1) Hypertensive urgency: Status: Acute Plan Middle-aged woman with accelerated hypertension. Keep current dose of lisinopril and amlodipine. Agree with adding HCTZ today. No has no retinopathy/proteinuria Renal function normal; K low normal TSH/Cortisol/Metanephrines/Aldosterone pending Doppler of renal arteries shows increased resistive indices. We will order CT angiogram as suggested Will benefit from sleep study as oupt Time Spent With Patient Time: Total time managing care of this patient today ____ minutes. Progress Note: Quality Stroke Does the patient have a stroke diagnosis?: No
--- NOTE | 2024-01-06 16:22 | HO.WOUND ---
Wound Consult: Initial 48yr old female admitted to [facility] on 01/04/24 - See progress notes and H&P for detailed history.? Wound consult placed for Left Leg wound.? Patient agreeable to assessment and photo documentation.? Patient reports she follows with her Vascular doctor at [facility] for her wound care needs. She reports she has weekly appointment for unna boot removal and application. Unna boot was due to be removed today. Left Medial Ankle Etiology: ?Venous Wound Wound Bed: dry stable scab noted - no fluctuance and no drainage noted Drainage / Odor: none Edges: ? irregular and attached Alesia wound: ? pink blanchable erythema no swelling noted - No Induration, Fluctuance or Warmth noted Pain: denies Goals of Treatment: ? Continue follow up care wiht [place] wound care provider for treatments and Triad and foam dressing with leg elevate while inpatient. Recommendations: 1. Turn and Reposition every 2 hours and as needed for patient comfort.? Use pillows or wedges to support off loading positions. 2. Off Load all bony prominences with use of pillows and heel boots if needed.? Apply Preventative foams where needed. ? 3. Monitor for incontinence and moisture control, use barrier creams when needed for prevention and treatment. 4. Provide adequate and supplemental nutrition.? 5. When applicable maintain blood glucose levels per Providers order. 6. Left Medial Ankle - Cleanse with NS moist gauze, pat dry. Apply thin layer of Triad to wound bed - only pat and dab no scrub and rub when changing. Elevate lower legs off of surface of bed with use of pillows.? Re-consult wound care Nurse for wound deterioration or wound changes.
[2024-01-06] MEDS: iohexoL 350 MG/ML 100 ML INFUS..BTL 80 ML IV (17:18)
[2024-01-06] MEDS: Enoxaparin Sodium 40 MG/0.4 ML SYRINGE SUBCUT (20:09)
[2024-01-06] MEDS: lisinopriL 40 MG TABLET PO (20:10)
[2024-01-07 03:57] VITALS: BP 152/78; PULSE 77; RESP 18; TEMP 35.8; O2SAT 96
[2024-01-07 07:43] LABS: Glucose, Whole Blood 95 mg/dL (60-115)
[2024-01-07 08:00] VITALS: BP 158/68; PULSE 73; RESP 18; TEMP 36.7; O2SAT 95
--- NOTE | 2024-01-07 09:24 | P.PNNP_ITS ---
Subjective Subjective Date of Service: 01/07/24 Interval history: Seen and examined this morning; Feels better; No chest pain, palpitations, shortness breath, dizziness, blurry vision Physical Exam 2 Vital Signs: Vital Signs: Last Vital Signs Temp 98.1 F 01/07/24 08:00 Pulse 73 01/07/24 08:00 Resp 18 01/07/24 08:00 BP 158/68 H 01/07/24 08:00 Pulse Ox 95 01/07/24 08:00 O2 Del Method Room Air 01/07/24 08:00 BMI result Body Mass Index 42.7 Const: General: no acute distress Orientation/consciousness: patient oriented x3 HEENT: Head: Yes normocephalic Eyes: EOM: EOMs intact bilaterally Neck: Neck: Yes supple Resp: Auscultation: diminished lung sounds Cardio: Rate: regular rate GI: Palpation (GI): Soft to palpation Neuro: General: patient oriented x3 Objective Data Labs 01/05/24 04:43 01/06/24 06:21 Labs: Laboratory Results - last 24 hr 01/07/24 07:20 POC Glucose 95 Procedures Date of Service Date of Service: 01/07/24 Assessment & Plan Assessment and plan (1) Hypertensive urgency: Status: Acute Plan C/W current dose of lisinopril/Amlodipine/HCTZ No has no retinopathy/proteinuria Renal function normal; K low normal Low Na diet; CTA FMD renal arteries Could increase CoReg to 12.5 mg bid Will benefit from sleep study as oupt Shall follow up with me in office in 3 weeks after D/C Progress Note: Quality Stroke Does the patient have a stroke diagnosis?: No
[2024-01-07 10:00] VITALS: BP 142/97; PULSE 117; RESP 17
[2024-01-07] MEDS: 0.9 % Sodium Chloride Flush 3 ML SYRINGE IVFLUSH (10:14)
[2024-01-07] MEDS: Sertraline HCL 100 MG TABLET PO (10:14)
[2024-01-07] MEDS: Butalb/Acetamin/Caff 50/325/40 TABLET 1 TAB PO (10:14)
[2024-01-07] MEDS: carvediloL 6.25 MG TABLET PO (10:14)
[2024-01-07] MEDS: Multivitamin TABLET 1 TAB PO (10:14)
[2024-01-07] MEDS: amLODIPine Besylate 10 MG TABLET PO (10:14)
[2024-01-07] MEDS: busPIRone HCl 5 MG TABLET 15 MG PO (10:14)
--- NOTE | 2024-01-07 10:22 | P.DS_ITS ---
DS: Providers Provider Date of Service: 01/07/24 Date of admission: 01/06/24 10:15 Date of discharge: 01/07/24 Primary care physician: Daysi Beckett MD Consults: 01/04/24 20:06 Consult to Cardiology Routine Consulting Provider: [facility] Reason for consultation: Hypertensive urgency 01/04/24 20:09 Consult to Wound Care Routine Reason for consultation: Venous ulcer LLE 01/05/24 09:01 Consult to Nephrology Routine Consulting Provider: [facility] [facility] Reason for consultation: MARK ANTHONY 01/05/24 18:14 Consult to Wound Care Routine Reason for consultation: skin ulcer pre-existing Has provider been notified: Yes Attending physician on discharge: Ramsey Zaragoza Discharging clinician: Lashawn Bolivar DS: Diagnosis Discharge Diagnosis (1) Hypertensive urgency: Status: Acute DS: Summary Hospital Course Hospital Course: From H&P on the day of admission : 48-year-old female with history of hypertension, history of pulmonary embolism 2020 no longer on anticoagulation, venous ulcer LLE following with vascular surgery presented to the ED earlier today for evaluation of uncontrolled blood p ressures with headache. She reports she has had diffuse pressure-like headache and lightheadedness ongoing for several weeks but worse today. She has had worsening blood pressure control since the end of November and has been working with her primary care provider on optimizing blood pressure management. She reports last night she called her PCP due to elevated blood pressure of 192/102 and increase lisinopril to 20 mg. Despite this, blood pressure remains significantly elevated this morning. She denies any vision changes, nausea, vomiting, shortness of breath, palpitations, syncope, chest pain. Denies any illicit drug use. No cigarette smoking or alcohol use. Since arrival, patient has been hypertensive to 213/86 with brief improvement to 186/100 following 10 mg labetalol however increased back to 223/116 on my examination. Vital signs are otherwise within normal limits. Hematology studies unremarkable. Chemistries reveal normal renal function and electrolyte levels. Troponin undetectable. Urinalysis unremarkable. Urine drug screen pending. Negative for COVID-19. Head CT negative for any acute intracranial abnormality. Chest x-ray unremarkable. EKG shows NSR, rate 76 without any acute ischemic changes. The patient will be observed overnight for hypertensive urgency. Hospital course: Hypertensive urgency troponin level undetectable, no end-organ damage. EKG without acute ischemic changes. Head CT without acute intracranial abnormalities. Echo with preserved ejection fraction, no structural heart disease. renal US obtained with suggestion of renal artery stenosis. 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 She was started on multiple blood pressure medications and her blood pressure improved significantly. She will need outpatient follow-up with Nephrology and routine monitoring for fibromuscular dysplasia. chronic venous ulcer LLE outpatient follow up with vascular surgery Time Attestation Discharge Coordination Time (in mins): 36 Quality: Safe Use of Opioids Does Pt have an Active Cancer Diagnosis on the Problem List?: No Quality: Stroke Does the patient have a stroke diagnosis?: No Physical Exam Vital Signs: Vital Signs: Last Vital Signs Temp 98.1 F 01/07/24 08:00 Pulse 117 H 01/07/24 10:00 Resp 17 01/07/24 10:00 BP 142/97 H 01/07/24 10:00 Pulse Ox 95 01/07/24 08:00 O2 Del Method Room Air 01/07/24 08:00 BMI result Body Mass Index 42.7 Const: General: cooperative Nutritional Appearance: average body habitus Orientation/consciousness: patient oriented x3 Resp: Effort & Inspection: normal respiratory effort, able to speak in complete sentences, no respiratory distress and no use of accessory muscles Cardio: Rate: regular rate GI: Inspection: No distended Palpation (GI): Soft to palpation and nontender Neuro: General: patient oriented x3, moves all extremities and CN's II-XI intact bilaterally Extrem: Other: LLE lower leg wrapped in c/d/i sofia bandage General: Yes no pedal edema DS: Data Data Completed and Pending Labs on day of discharge: Laboratory Results - last 24 hr 01/07/24 07:20 POC Glucose 95 Discharge Plan Discharge Anticipated Discharge Date/Time: 01/07/24 11:24 Patient Disposition: Home, Self-Care Discharge Diagnosis: Hypertensive urgency Fibromuscular dysplasia Referrals: Shiva Monk MD [Physician] - 3 Weeks Daysi Becktet MD [Primary Care Provider] - 1 Week Discharge Medications: New carvedilol 6.25 mg Tablet 6.25 mg PO BID 90 Days Qty: 180 0RF Protocol: Hold for SBP/HR < HOLD for SBP < : 90 HOLD for HR < : 60 amlodipine 10 mg Tablet 10 mg PO DAILY 90 Days Qty: 90 0RF Protocol: Hold for SBP< HOLD for SBP < : 90 lisinopril 40 mg Tablet 40 mg PO BEDTIME 90 Days Qty: 90 0RF Protocol: Hold for SBP< HOLD for SBP < : 90 hydrochlorothiazide 25 mg Tablet 25 mg PO DAILY 90 Days Qty: 90 0RF Protocol: Hold for SBP< HOLD for SBP < : 90 Continued tizanidine 2 mg tablet 2 mg PO Q72H PRN (Reason: Spasms) sertraline 100 mg tablet 100 mg PO DAILY buspirone 15 mg tablet 15 mg PO BID multivitamin Tablet 1 tab PO DAILY hydrocodone-acetaminophen 5-325 mg tablet 1 tab PO DAILY PRN (Reason: pain) Rx Instructions: TAKES SELDOMLY Discontinued lisinopril 10 mg tablet 30 mg PO DAILY Discharge Orders: Discharge Order (Routine); Ordered 01/07/24 Ordered By: Lashawn Bolivar Diet: Low salt diet Activity on Discharge: As tolerated Stand Alone Forms: Patient Portal Discharge page Print Language: Colombian Care Plan Goals: see below Health Concerns: uncontrolled blood pressure due to fibromuscular dysplasia of renal arteries Plan of Treatment: Take new blood pressure medications as prescribed Call to schedule follow-up appointment Nephrology for monitoring of blood pressure and further workup in regard of fibromuscular dysplasia Follow-up with vascular surgery as scheduled for chronic foot wound Assessment: see discharge summary Patient Instructions: Hypertensive Crisis (ED)
--- NOTE | 2024-01-07 10:59 | MHC.CM.PN ---
PT MEDICALLY CLEARED FOR DC HOME NO SERVICES, PT'S MOISES FOR TRANSPORT
[2024-01-07 11:26] VITALS: PULSE 103; RESP 17
[2024-01-07] MEDS: hydroCHLOROthiazide 25 MG TABLET PO (11:29)
[2024-01-07 12:00] VITALS: BP 125/85; PULSE 78; RESP 18; TEMP 36.7; O2SAT 97
[2024-01-10 14:13] LABS: Metanephrine, Free <25 pg/mL (<=57); Normetanephrines, Free 130 pg/mL (<=148); Total Metanephrine, Free 130 pg/mL (<=205)
[2024-01-14 11:28] LABS: Renin 0.71 ng/mL/h (0.25-5.82)
== END 2024-01-07 15:00 | disposition home or self-care (01) | DRG 305 ==
LOC: HO.ED 18:56 → HO.EDOVER 20:25 → HO.IMC 01-05 16:37
PROVIDERS: Internal Medicine Nephrology; Physician Assistant; Admitting Provider Physician Assistant; Emergency Provider Emergency Medicine; PCP Internal Medicine; Visit Provider Physician Assistant Medical
DX: I16.0 Hypertensive urgency (principal); I87.312 Chronic venous hypertension (idiopathic) with ulcer of left lower extremity; L97.929 Non-pressure chronic ulcer of unspecified part of left lower leg with unspecified severity; I10 Essential (primary) hypertension; I77.3 Arterial fibromuscular dysplasia; Z20.822 Contact with and (suspected) exposure to COVID-19; Z86.711 Personal history of pulmonary embolism; Z79.899 Other long term (current) drug therapy
CPT/HCPCS: 36415; 70450; 71045; 74174; 76775; 80048; 80053; 80307; 81001; 82088; 82533; 82947; 83735; 83835; 84244; 84443; 84484; 85025; 87635; 93005; 93306; 93975; 99222; 99285; J0360; J1650; J1885; J1920; J2270; Q9957; Q9967

== ENCOUNTER 2024-01-04 20:06 | Outpatient (BNV) | payer MEDICARE, MEDICAID, SELFPAY | END 2024-01-05 07:00 | PROVIDERS: Admitting Provider Physician Assistant; Emergency Provider Emergency Medicine; PCP Internal Medicine; Visit Provider Internal Medicine Cardiovascular Disease | DX: I16.0 Hypertensive urgency (principal) | CPT/HCPCS: 93306 ==

== ENCOUNTER → 2024-01-04 20:06 | Outpatient (BNV) | payer MEDICARE, MEDICAID, SELFPAY | PROVIDERS: Admitting Provider Physician Assistant; Emergency Provider Emergency Medicine; PCP Internal Medicine; Visit Provider Physician Assistant | DX: I16.0 Hypertensive urgency (principal) | CPT/HCPCS: 99223; 99232; 99233; 99239 ==

== ENCOUNTER → 2024-01-04 20:06 | Outpatient (BNV) | payer MEDICARE, MEDICAID, SELFPAY | PROVIDERS: Admitting Provider Physician Assistant; Emergency Provider Emergency Medicine; PCP Internal Medicine; Visit Provider Internal Medicine Cardiovascular Disease | DX: I16.0 Hypertensive urgency (principal) | CPT/HCPCS: 99223; 99233 ==

== ENCOUNTER → 2024-01-04 20:06 | Outpatient (BNV) | payer MEDICARE, MEDICAID, SELFPAY | PROVIDERS: Admitting Provider Physician Assistant; Emergency Provider Emergency Medicine; PCP Internal Medicine; Visit Provider Internal Medicine Nephrology | DX: I16.0 Hypertensive urgency (principal) | CPT/HCPCS: 99223; 99232 ==

== ENCOUNTER 2024-02-10 14:32 | Outpatient (AMB) | payer MEDICARE, MEDICAID, SELFPAY ==
[2024-02-10 15:05] VITALS: BP 132/86; PULSE 68; O2SAT 98; BMI 41.0
--- NOTE | 2024-02-10 15:05 | HO.NEPHOV_ITS ---
Vital Signs 02/10/24 15:05 Height 5 ft 2 in Weight 224 lb 4 oz BMI 41.0 BP 132/86 Blood Pressure Location Lt brachial Position Sitting Pulse 68 Pulse Source Pulse Oximeter Pulse Oximetry (%) 98 Oxygen Delivery Method Room Air Intake Visit Reasons: [facility] Translation Director Required: No Accompanied by: Self / Same As Patient Allergies sulfamethoxazole [From BACTRIM] Allergy (Unknown, Verified 02/10/24 15:07) VOMITING trimethoprim [From BACTRIM] Allergy (Unknown, Verified 02/10/24 15:07) VOMITING naproxen [NAPROXEN] Adverse Reaction (Intermediate, Verified 02/10/24 15:07) NAUSEA & VOMITING HPI Comments Details: 48-year-old female with history of hypertension presented to the [facility] for evaluation of uncontrolled blood pressures with headache. She has had worsening of blood pressure control since the end of November and has been working with her primary care provider on optimizing blood pressure management. She had multiple medication changes with no improvement in BP. She did not have any vision changes, nausea, vomiting, shortness of breath, palpitations, syncope, chest pain and has no H/O drug use. Her BP on arrival was 213/86 with brief improvement to 186/100 following [address] was negative for any acute intracranial abnormality. Chest x-ray unremarkable. EKG shows NSR, rate 76 without any acute ischemic changes. Echo showed preserved ejection fraction, no structural heart disease. Renal US obtained showed suggestion of renal artery stenosis. 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 Rest of W/O to R/O secondary etiology were negative. She was started on multiple blood pressure medications and her blood pressure improved significantly. After discharge, her BP went very low and her BP medications needed to be backed off. Her BP is well controlled now and feels well. [facility] Medical History (Updated 02/12/24 @ 09:02 by Shiva Monk MD) Venous ulcer Pulmonary embolism COVID-19 HTN (hypertension) Surgical History No significant past surgical history Social History Household Members: Spouse and Children Housing: House Do you presently have visiting nurse or other home services: No Patient Tobacco Use Status: Never used Tobacco e-Cigarette/Vaping Use: Never Used Advance Directives Date on File: 01/16/21 service: No Current occupational status: disabled Review of Systems Const All systems reviewed & are unremarkable except as noted in HPI and below Physical Exam Vital Signs: Last Vital Signs Pulse 68 02/10/24 15:05 BP 132/86 02/10/24 15:05 Pulse Ox 98 02/10/24 15:05 Oxygen Delivery Method Room Air 02/10/24 15:05 BMI result Body Mass Index 41.0 Const General: comfortable and no acute distress Orientation/consciousness: patient oriented x3 HEENT Head: Yes normocephalic Mouth: Normal oral and palatal mucosa present Eyes EOM: EOMs intact bilaterally Neck Neck: Yes supple Resp Auscultation: clear to auscultation bilaterally Cardio Jugular venous distension: no JVD Rate: regular rate GI Palpation (GI): Soft to palpation Auscultation: normal bowel sounds General: Yes no CVA tenderness Back/Spine/Pelvis Back: no CVA tenderness Skin General skin exam: no rashes or lesions noted Neuro General: patient oriented x3 and moves all extremities Extrem General: Yes no pedal edema Results Reviewed Nephrology Results: Hgb 13.3 g/dl (12.0-16.0) 01/05/24 WBC 10.0 X10*3/uL (4.8-10.8) 01/05/24 Plt Count 290 X10*3/uL (160-400) 01/05/24 Sodium 140 mmol/L (135-145) 01/06/24 Potassium 3.6 mmol/L (3.3-5.1) 01/06/24 Chloride 110 mmol/L (96-108) H 01/06/24 Carbon Dioxide 22 mmol/L (22-29) 01/06/24 BUN 11 mg/dL (9-16) 01/06/24 Creatinine 0.69 mg/dL (0.5-1.4) 01/06/24 Calcium 9.2 mg/dL (8.4-10.2) 01/06/24 Urine Protein Negative mg/dL (Neg-Trace) 01/04/24 Renal US 01/04/24 Assessment & Plan Assessment & Plan (1) HTN (hypertension): Code(s): I10 - Essential (primary) hypertension Category: Medical Qualifiers: Hypertension type: renovascular hypertension Qualified Code(s): I15.0 - Renovascular hypertension (2) Fibromuscular dysplasia: Code(s): I77.3 - Arterial fibromuscular dysplasia Category: Medical Plan C/W current dose of anti hypertensive medications No has no retinopathy/proteinuria Renal function normal; K low normal Low Na diet; CTA showed FMD renal arteries Will benefit from sleep study as oupt Needs to continue life style modifications All questions answered; F/U given Orders: Orders Electrolytes 6 Months I10 - Essential (primary) hypertension, I77.3 - Arterial fibromuscular dysplasia Creatinine 6 Months I10 - Essential (primary) hypertension, I77.3 - Arterial fibromuscular dysplasia Blood Urea Nitrogen 6 Months I10 - Essential (primary) hypertension, I77.3 - Arterial fibromuscular dysplasia Medications: Discontinued lisinopril Discontinued Reason: Patient no longer taking 40 mg See Protocol PO BEDTIME 90 days 90 tabs 0RF amlodipine Discontinued Reason: Patient no longer taking 10 mg See Protocol PO DAILY 90 days 90 tabs 0RF Coding Level of Care Code Est Pt Level 4 (73855) Diagnoses Renovascular hypertension I15.0 Hypertension type: renovascular hypertension Fibromuscular dysplasia I77.3
== END 2024-02-10 15:31 | disposition home or self-care (01) ==
PROVIDERS: PCP Internal Medicine; Visit Provider Internal Medicine Nephrology
DX: I15.0 Renovascular hypertension (principal); I77.3 Arterial fibromuscular dysplasia
CPT/HCPCS: 99214

== ENCOUNTER → 2024-02-10 14:32 | Outpatient (BNVA) | payer MEDICARE, MEDICAID, SELFPAY | PROVIDERS: PCP Internal Medicine; Visit Provider Internal Medicine Nephrology | DX: I15.0 Renovascular hypertension (principal); I77.3 Arterial fibromuscular dysplasia | CPT/HCPCS: 99212 ==

== ENCOUNTER 2024-08-10 12:26 | Outpatient (REF) | payer BC, MEDICAID, SELFPAY ==
--- OUTSIDE RECORDS SUMMARY | 2024-08-10 15:12 | XMS_ITS | Encounter Summary ---
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) Daysi Beckett MD [address] [place] [address] Phone: tel: fax: Shiva Monk MD [address] [place] [phone] Phone: tel: Referral ID Status Reason Start Date Expiration Date V isits Requested Visits Authorized [id number] Closed Specialty Services Required 08/08/2024 08/08/2025 12 12 Reason for Visit * Reason Onset Date Comments Referral 08/07/2024 Nephrology Insur ance Referral Encounter Details Date Type Department Care Team (Late st Contact Info) Description 08/07/2024 Telephone Adult Medicine [facility] [address] [place] [address] Daysi Beckett MD [address] [place] [address] Referral (Nephrology Insurance Referral) Social History Tobacco Use Types Packs/Day Years Used Date Smoking Tobacco: Never Smokeless Tobacco: Never Alcohol Use Standard Drinks/Week Comments Yes 0 (1 standard drink = 0.6 oz pur e alcohol) Housing Instability Answer Date Recorde d Are you worried that in the next 2 months you may not have stable housing? No 06/22/2024 Food Access & Nutrition Answer Date Rec orded Do you have access to a vari ety of food including fruits and vegetables? Yes 06/22/2024 Access to Healthcare Answer Date Record ed Within the last 3 months, ho w many times did you visit the emergency department for your medical care? 0 06/22/2024 Health Literacy Answer Date Recorded How often do you need to hav e someone help you when you read instructions, pamphlets, or other written material from your doctor or pharmacy? Never 06/22/2024 Caregiver: How often do you need to have someone help you when you read instructions, pamphlets, or other written material from your doctor or pharmacy? Not on file 06/22/2024 Financial Risk Answer Date Recorded How hard is it for you to pa y for the very basics like food, housing, medical care, and air conditioning / heating? Not very hard 06/22/2024 Transportation Answer Date Recorded Has the lack of transportati on kept you from meetings, work, or from getting things needed for daily living? No Has the lack of transportati on kept you from medical appointments or from getting medications? No 06/22/2024 Social Isolation Answer Date Recorded How often do you feel lonely or isolated from th ose around you? Rarely 06/22/2024 Food Risk Answer Date Recorded Within the past 12 months we worried whether our food would run out before we got money to buy more. Never true 06/22/2024 Within the past 12 months th e food we bought just didn't last and we didn't have money to get more. Never true 06/22/2024 Dependent Care Answer Date Recorded Do you need help finding or paying for care for your loved ones. For example, child care counselor or elderly care for an older adult? No 06/22/2024 Education Answer Date Recorded Do you think completing more education or training, like finishing a GED, going to college, or learning a trade, would be helpful for you? No 06/22/2024 Employment and Income Answer Date Recor ded During the last four weeks, have you been actively looking for work? No 06/22/2024 Living Situation Answer Date Recorded What is your living situation? 0 06/22/2024 Comments No Sex and Gender Information Value Date Recorded Sex Assigned at Not on file Legal Sex Female 12:27 AM EST Gender Identity Not on file Sexual Orientation Not on file documented as of this encounter Progress Notes * Amelie Chavez - 08/07/2024 3:30 PM EDT What insurance does the patient have today? Payor: [email or web address]/@[email or web address]@ Referrals cannot be processed if the insurance is not accurate. If the insurance listed above is NO BILLING INFORMATION FOUND FOR THIS ENCOUNTER then the patients correct insurance must be obtainedand registered in [facility] or their referral can not be processed. Name of person calling to request this referral? Fax - [facility] Referred To Provider (Include first and last name): Shiva Monk NPI (if known): [phone] Order/Specialty requested nephrology Chief Complaint (Note: This is not a body part or a procedure): I77.3 Has the patient seen provider for this problem/Dx before? N/A Referred To Provider Address: [address] [place] [address] [place] Referred To Provider Referred To Provider Does patient have an appointment scheduled?: yes If yes, what is the date of the appointment?: 08/11/24 Is this a retro request? no Number of visits requested: 12 Is this appointment related to: MVA or worker compensation? no documented in this encounter Plan of Treatment Upcoming Encounters Date Type Department Care Team (Late st Contact Info) Description 08/10/2024 5:00 PM EDT Hospital Encounter Radiology Department - [address] [address] 09/20/2024 8:45 AM EDT Office Visit Adult Medicine [facility] - [address] [phone] Daysi Beckett MD [address] [place] [address] 10/04/2024 1:30 PM EDT Appointment Radiology Department - [address] [phone] Scheduled Referrals Name Type Priority Associated Diagnoses Orde r Schedule Ambulatory referral to Nephrology Outpatient Referral Routine Arterial fibromuscular dysplasia ([facility] V24) Expected: 08/07/2024, Expires: 08/07/2025 documented as of this encounter Visit Diagnoses Diagnosis Arterial fibromuscular dysplasia (CMS/HCC V24)- Primary Other specified disorders of arteries and arterioles documented in this encounter Additional Health Concerns Assessment Noted Time PHQ-9 Depression Total Score: 0 08/03/19 25 8:13 AM EDT documented as of this encounter Care Teams Spinning Room Worker Relationship Specialty Start Date End Date Daysi Beckett MD [address] [place] [address] PCP - General 12/30/04 documented as of this encounter
--- OUTSIDE RECORDS SUMMARY | 2024-08-10 15:12 | XMS_ITS | Encounter Summary ---
Author Organization [place] [address] Care Team Providers Care Pv Design Engineer Name Role Phone Daysi Beckett MD Primary Care Provider [phone] Reason for Visit * Imaging (Routine) - Pending Review Specialty Diagnoses / Procedures Referred By Darius jay Referred To Contact Radiology Diagnoses Dysmenorrhea Procedures US Pelvis Non OB Complete w Transvaginal US Pelvis Non OB Complete Staci Simmons, [facility] [address] [place] [address] Phone: tel: fax: [address] Phone: tel: Referral ID Status Reason Start Date Expiration Date V isits Requested Visits Authorized [id number] Pending Review 08/02/2024 08/02/2025 1 1 Encounter Details Date Type Department Care Team (Late st Contact Info) Description 08/10/2024 5:00 PM EDT Hospital Encounter Radiology Department - [address] [phone] Social History Tobacco Use Types Packs/Day Years [...] care for your loved ones. For example, child's nurse or elderly care for an older adult? [...] on file documented as of this encounter Plan of Treatment Upcoming Encounters Date Type Department Care Team (Late st Contact Info) Description 09/20/2024 8:45 AM EDT Office Visit Adult Medicine [address] [phone] Daysi Beckett MD [address] [place] [address] 10/04/2024 1:30 PM EDT Appointment Radiology Department - [address] [phone] Scheduled Orders Name Type Priority Associated Diagnoses Orde r Schedule US Pelvis Non OB Complete w Transvaginal Imaging Routine Dysmenorrhea Expected: 08/02/2024, Expires: 08/02/2025 documented as of this encounter Visit Diagnoses Not on filedocumented in this encounter Additional Health Concerns Assessment Noted Time PHQ-9 Depression Total Score: 0 08/03/19 25 8:13 AM EDT documented as of this encounter Care Teams Pv Design Engineer Relationship Specialty Start Date End Date Daysi Beckett MD [address] [place] [address] PCP - General 12/30/04 documented as of this encounter
--- OUTSIDE RECORDS SUMMARY | 2024-08-10 15:12 | XMS_ITS | Data Portability ---
Author Organization [facility] [address] Address [address] [place] [address] Care Team Providers Care Plater Supervisor Name Role Phone REBEL CORRALESE Primary Care Provider [phone] Assessment No assessment recorded. Plan of Treatment Reminders Order Date Submit Date Provider Last Modified By Organization Details Last Modified Time Details Appointments None record ed. Lab None record ed. Referral None record ed. Procedures None record ed. Surgeries None record ed. Imaging XR, ankle, 3 or more view 023 11/21/19 [facility], [address] [place], [address], 13:36:26 Medication Orders None record ed. Patient TargetsNo targets recorded. Patient Instructions Encounter Date Encounter Id Patient Instructions Last Modified By Organization Details Last Modified Time 11/20/2022 [id number] ice or heat to area whichever feels better elevate affected area if it is a limb alternate ibuprofen, 4 hours later tylenol, 4 hours later back to ibuprofen may wrap for extra support wear tennis shoes or good arch supportive shoes start drawing your ABCs with your injured ankle to help strengthen the ligaments and tendons SEE FAMILY DOCTOR IF PAIN PERSISTS AFTER THE ABOVE TREATMENT--YOU MAY NEED PHYSCIAL THERAPY OR POSSIBLE MRI WITH REFERRAL TO SPECIALIST jb Not available 11/20/2022 12:33:31 Reason for Referral None Reported. Results Created Date Observation Date Name Description Value Unit Range Abnormal Flag Note LastModifiedBy Organization Detail LastModifiedTime 11/21/19 23 11/20/2022 XR, ankle , 3 or more view No observ ation record ed. [facility] [address] [place], [address], 11/20/2022 14:39:13 Result Notes None recorded. Problems Name Problem SNOMED Code Status Onset Date Resolution Date Notes Provider Name and Address Organization Details Recorded Time Hypertensive disorder 11664127 Active 2022 Dang garcia, [place] - [facility] 12:23:07 Anxiety 00079931 Active 2022 Dang garcia, PA - [facility] 12:23:15 Depressive disorder 99426936 Active 2022 Dang garcia, PA - [facility] 12:23:21 Problem Notes None recorded. Procedures Surgical History Date Name Laterality Status Provider Name and Address Organization Details Recorded Time excision of varicose vein completed Dang Mills PA - [facility] 11/20/2022 12:23:38 Imaging Results Imaging Date Name Status LastModified by Organiz ation Details LastModified Time 11/20/2022 XR, ankle, 3 or more view completed [email or web address] [address] [facility] [place], [address], 11/20/2022 14:39:13 Procedure Notes None recorded. Medical Equipment None Reported. Allergies Allergen ID Allergen Name Allergen Category Reaction Reaction Severity Criticality Documentation Date Start Date Code Code System Note Provider Name and Address Organization Details Recorded Time 947966 Bactrim medicatio n Not available Not available Not available 11/20/2022 61731 9 RxNorm Dang garcia, PA - [facility] 12:22:15 Medications Name Sig Start Date Stop Date Status Note LastModified by Organization Details LastModified Time tizanidine 2 mg tablet TAKE ONE TABLET BY MOUTH TWICE A WEEK active Not Available Not Available No t Available hydrocodone 5 mg-acetamin ophen 325 mg tablet TAKE ONE TABLET BY MOUTH EVERY DAY NEEDED FOR PAIN active Not Available Not Available No t Available sertraline 100 mg tablet TAKE ONE TABLET BY MOUTH EVERY DAY active Not Available Not Available No t Available alprazolam 0.25 mg tablet TAKE 1 TABLET BY MOUTH 1 HOUR BEFORE PROCEDURE 11/20 completed Not Available Not Available Not Available lisinopril 10 mg tablet TAKE ONE TABLET BY MOUTH AT BEDTIME active Not Available Not Available No t Available buspirone 15 mg tablet TAKE ONE TABLET BY MOUTH TWICE A DAY active Not Available Not Available No t Available Vitals Date Recorded Body height Body mass index (BMI) Body weight Pain severity - 0-10 verbal numeric rating [Score] - Reported Oxygen saturation Oxygen saturation in Arterial blood by Pulse oximetry Heart rate Respiratory rate Body temperature Systolic blood pressure Diastolic blood pressure Provider Name and Address Organization Details Last Updated DateTime 157.48 cm 42.1 kg/m2 944199. 25 g 7 96 % 96 % 79 /min 18 /min 98.4 [degF] 132 mm[Hg] 80 mm[Hg] Dang Mills [facility] 12:27:40 Social History Question Answer Notes LastModified by The Mother Listizat ion Details LastModified Time Tobacco Smoking Status Never Smoker Dang garcia [facility] 11/20/2022 12:24:33 What Is Your Level Of Alcohol Consumption? Occasional Information not available 11/20/2022 How Many Times Per Week Do You Consume Alcohol? Less Than 1 Time Per Week Information not available 11/20/2022 Do You Use Any Illicit Or Recreational Drugs? No Information not available 11/20/2022 Have You Recently Traveled Abroad? No Information not available 11/20/2022 Do You Or Have You Ever Used Any Other Forms Of Tobacco Or Nicotine? No Information not available 11/20/2022 Sex: Unknown Functional Status None recorded. Mental Status None recorded. Family History Relationship Description Onset Age of this Age Resolved Age Notes LastModified by Organization Details LastModified Time Father Hypertensive disorder [email or web address] Not available 2022 12:23:59 Mother Hypertensive disorder [email or web address] Not available 2022 12:23:59 Mother Chronic obstructive pulmonary disease [email or web address] Not available 2022 12:24:14 Mother Pulmonary emphysema [email or web address] Not available 2022 12:24:20 Medical History No medical history recorded. Gynecological History Statement/Question Response Date of LMP 11/11/2022 Is there any chance of ? No Obstetrics History GPAL:G 0 P 0 0 0 0 Immunizations Vaccine Type Date Status Note Provider Nam e and Address Organization Details Recorded Time Influenza, MDCK, quadrivalent, PF 0 completed Dang Monfette null, PA - [facility] 11/20/2022 12:22:05 COVID-19, mRNA, LNP-S, PF, 30 mcg/0.3 mL dose 1 completed Dang Monfette null, PA - [facility] 11/20/2022 12:22:05 COVID-19, mRNA, LNP-S, PF, 30 mcg/0.3 mL dose 1 completed Dang Monfette null, PA - [facility] 11/20/2022 12:22:05 Tdap 2 completed Dang Monfette null, PA - [facility] 11/20/2022 12:22:05 Influenza, split virus, trivalent, preservative 8 completed Dang Monfette null, PA - [facility] 11/20/2022 12:22:05 Influenza, split virus, trivalent, preservative 0 completed Dang Monfette null, PA - [facility] 11/20/2022 12:22:05 Influenza, split virus, trivalent, preservative 6 completed Dang Monfette null, PA - [facility] 11/20/2022 12:22:05 Influenza, split virus, trivalent, preservative 2 completed Dang Monfette null, PA - [facility] 11/20/2022 12:22:06 Influenza, split virus, trivalent, preservative 4 completed Dang Monfette null, PA - [facility] 11/20/2022 12:22:06 Influenza, split virus, trivalent, preservative 5 completed Dang Monfette null, PA - [facility] 11/20/2022 12:22:06 Influenza, split virus, trivalent, preservative 1 completed Dang Monfette null, PA - [facility] 11/20/2022 12:22:06 Td (adult), 5 Lf tetanus toxoid, preservative free, adsorbed 3 completed Dang Monfette null, PA - [facility] 11/20/2022 12:22:06 Td (adult), 2 Lf tetanus toxoid, preservative free, adsorbed 6 completed Dang Monfette null, PA - [facility] 11/20/2022 12:22:06 Past Encounters Encounter ID Performer Location Encounter Start Date Encounter Closed Date Diagnosis/Indication Diagnosis SNOMED-CT Code Diagnosis ICD10 Code Diagnosis Note [id number] [address] [place] [address] 10/01/2015 18:11:12 10/01/2015 20:00:46 [id number] [address] [place] [address] 08/08/2015 18:44:26 08/08/2015 20:03:09 [id number] [address] [place] [address] 06/13/2021 15:08:17 06/13/2021 17:44:53 [id number] [address] [place] [address] 05/21/2019 12:17:48 05/21/2019 13:34:24 [id number] Melvin Coles NP [address] [place] [address] 11/20/2022 12:04:29 11/20/2022 13:14:09 Pain of right ankle joint 0701450800 9871935 M25.571 Health Concerns Section Related Observation LastModified by Organization Detai ls LastModified Time None Recorded Concern Status LastModified by Organization Details LastModified Time None Recorded Advance Directives Directive None Recorded Payers Encounter Date Sequence Insurance Name Policy Number Policy Jacobs Covered Member ID Jacobs Member ID Guarantor Name 05/21/2019 1 [place]MED[place] HMO) [id number] Elizabeth Marc [id number] Elizabeth Cazares Monico 06/13/2021 1 [place]MO) [id number] Elizabeth Marc [id number] Elizabeth Marc 11/20/2022 1 [place] HMO) [id number] Elizabeth Cazares Monico [id number] Elizabeth Cazares Monico Notes Date Note Type Note Provider Name and Address Organization Details Recorded Time 3 text/html Foot/Ankle UCReported bypatient.source of patient informationInformation obtained from patient; Patient arrived at Urgent Care ambulatory; learning styles: auditory Location:right; ankle; happen 5 days ago while walking on wet floor and slipped but prevented the fall. have varicose veins also. Probleminjury; swelling Severity:moderate Duration:5 days Context:twisting Associated Symptoms:no weakness; no numbness; no tingling; no warmth; no ecchymosis;swelling;redness Aggravating factors:standing; walking Alleviating factors:elevation; ice; limited weight bearing; rest Assistive devicesbrace; Jake bandage Previous InjuryNo prior injury to affected body part Previous Treatmentnone Prior Imaging:none Melvin Coles NP [address] [place], [address], [place] - [facility] 11/20/2022 13:13:47 OBGyn Episode No OBEpisode recorded.
--- OUTSIDE RECORDS SUMMARY | 2024-08-10 15:12 | XMS_ITS | Clinical Summary ---
Author Organization [facility] Address [address] [place] [address] Care Team Providers Care Parts Runner Name Role Phone Daysi Beckett MD Primary Care Provider [phone] Allergies Active Allergy Reactions Criticality Noted Date Comments Sulfamethoxazole-Trimethoprim 2021 Naproxen 01/30/2022 Medications Medication Sig Dispensed Refills Start Date End Date Status tiZANidine (ZANAFLEX) 2 MG tablet Take 2 mg by mouth every 6 (six) hours as needed. 0 Active sertraline (ZOLOFT) 100 MG tablet Take 100 mg by mouth daily. 0 Active busPIRone (BUSPAR) 15 MG tablet Take 15 mg by mouth 3 (three) times a day. 0 Active HYDROcodone-acetami nophen (NORCO) 5-325 MG per tablet Take 1 tablet by mouth every 6 (six) hours as needed for pain. 0 Active apixaban (ELIQUIS) 5 MG TABS tablet Take 5 mg by mouth every 12 (twelve) hours. 0 Active lisinopril (PRINIVIL,ZESTRIL) tablet 10 mg Take 10 mg by mouth daily. 0 Active Probiotic Product (Probiotic-10) CHEW Chew by mouth. 0 A ctive levonorgestrel (MIRENA) 20 MCG/DAY IUD 1 each by Intrauterine route once. 0 Active Multiple Vitamins-Minerals (MULTIVITAMIN ADULTS PO) Take by mouth. 0 Active Active Problems Problem Noted Date Diagnosed Date Other pulmonary embolism without acute cor pulmo nale 01/31/2022 Social History Tobacco Use Types Packs/Day Years Used Date Smoking Tobacco: Never Assessed Sex and Gender Information Value Date Recorded Sex Assigned at Not on file Gender Identity Not on file Sexual Orientation Not on file Job Start Date Occupation Industry Not on file Not on file Not on file Last Filed Vital Signs Vital Sign Reading Time Taken Comments Blood Pressure 148/83 01/30/2022 11:24 AM EDT Pulse 73 01/30/2022 11:24 AM EDT Temperature 36.9 ??C (98.5 ??F) 01/30/2022 11:24 AM E DT Respiratory Rate - - Oxygen Saturation 99% 01/30/2022 11:24 AM EDT Inhaled Oxygen Concentration - - Weight 112.5 kg (248 lb) 01/30/2022 11:24 AM EDT Height 157.5 cm (5' 2 ) 01/30/2022 11:24 AM EDT Body Mass Index 45.36 01/30/2022 11:24 AM EDT Plan of Treatment Health Maintenance Due Date Last Done Comments Hepatitis B Vaccines (1 of 3 - 3-dose series) 1974 Hepatitis C Screening 1974 Depression Screening 1986 Preventative Health Evaluation 01/09/1992 Cervical Cancer Screening (Pap Smear) 1995 Colon Cancer Screening (Colonoscopy) 2019 DTap / Tdap / Td (2 - Td or Tdap) 07/30/2021 07/31/2011 COVID-19 Vaccine ( season) 2023 04/20/2021, 03/29/2021 Influenza Vaccine (#1) 2023 , 02/17/2016, 02/28/2014, Additional history exists Breast Cancer Screening (Mammogram) 01/09/2024 Shingrix-Zoster Vaccine (1 of 2) 01/09/2024 Pneumococcal Vaccine Aged Out No long er eligible based on patient's age to complete this topic RSV Ped < 20 months Aged Out No longe r eligible based on patient's age to complete this topic Care Teams Parts Runner Relationship Specialty Start Date End Date Daysi Beckett MD PCP - General Internal Medicine 12/23/21
--- OUTSIDE RECORDS SUMMARY | 2024-08-10 15:13 | XMS_ITS | Clinical Summary ---
Author Organization [address] [place] [address] Address [address] [place] [address] Phone Care Team Providers Care Asphalt Spreader Name Role Phone Daysi Beckett MD Primary Care Provider [phone] Allergies Active Allergy Reactions Criticality Noted Date Comments Naproxen 12/23/2007 Gi distress and diarrhea Sulfamethoxazole-Trim ethoprim Nausea And Vomiting Medium 01/03/2015 Medications levonorgestreL (MIRENA) 21 mcg/24 hr (8 yrs) 52 mg IUD 1 Each by Intrauterine route once. Active multivitamin (MULTIPLE VITAMINS ORAL) Take 1 tablet by mouth daily. Active UNABLE TO FIND Take 2 Each by mouth daily. Active busPIRone (BUSPAR) 15 mg tablet TAKE ONE TABLET BY MOUTH TWICE A DAY 180 tablet 1 4 Active sertraline (ZOLOFT) 100 mg tablet TAKE ONE TABLET BY MOUTH EVERY DAY 90 tablet 1 4 Active busPIRone (BUSPAR) 15 mg tablet Take 1 tablet (15 mg total) by mouth 2 (two) times a day. Take 1 Tablet by mouth 2 times daily. 180 each 4 Active Additional Information Patient not taking.Reported on 08/02/2024 sertraline (ZOLOFT) 100 mg tablet Take 1 tablet (100 mg total) by mouth 1 (one) time each day. Take 1 Tablet by mouth every day 90 each 1 4 Active Additional Information Patient not taking.Reported on 08/02/2024 carvediloL (COREG) 6.25 mg tablet Take 1 tablet (6.25 mg total) by mouth 2 (two) times a day with meals. 180 tablet 1 4 Active hydroCHLOROthi azide 12.5 mg tablet Take 1 tablet (12.5 mg total) by mouth 1 (one) time each day. 90 tablet 1 4 Active tiZANidine (ZANAFLEX) 2 mg tablet Take 1 tablet (2 mg total) by mouth 2 (two) times a week. 30 tablet 5 Active HYDROcodone-ac etaminophen (NORCO) 5-325 mg per tablet Take 1 tablet by mouth 1 (one) time each day if needed for severe pain. Take 1 Tablet by mouth daily as needed for Pain. Max Daily Amount: 1 tablet 30 tablet 5 Active HYDROcodone-ac etaminophen (NORCO) 5-325 mg per tablet Take 1 Tablet by mouth daily as needed for Pain. 4 025 Discontin ued(Reord er) tiZANidine (ZANAFLEX) 2 mg tablet Take 1 Tablet by mouth twice a week. 4 025 Discontin ued(Reord er) Active Problems Problem Noted Date Diagnosed Date Hyperlipidemia LDL goal <100 08/09/2024 Renal fibromuscular dysplasia (CMS/HCC V24) 12/25 Overview (06/24/2024): 12/2023, (Dr. Oseguera) Hypertension 09/16/2021 Pneumonia due to COVID-19 virus 02/05/2021 Overview (02/07/2024): 01/14 History of pulmonary embolus (PE) 02/05/2021 Overview (02/07/2024): 01/14 due to covid Fibromyalgia 11/07/2018 Anxiety 01/27/2018 Overview (02/07/2024): Last Assessment & Plan: Referred to behavioral health. Will discuss meds with Dr. Beckett if feels needs meds IBS (irritable bowel syndrome) 11/11/2015 Thoracic back pain 08/24/2013 Superficial phlebitis 08/27/2011 Overview (02/07/2024): While ; treated with lovenox Depression 07/17/2010 Allergic rhinitis 10/12/2006 Backache 06/29/2005 Overview (02/07/2024): MRI mild DJD T3-T4, T4-T5, has seen physiatry Varicose veins of lower extr emity with both ulcer and inflammation ([facility] V24, [facility] V28) 06/29/2005 Overview (02/07/2024): Had laser procedure through vascular 01/05 Resolved Problems Problem Noted Date Diagnosed Date Resolved Date Other pulmonary embolism wit hout acute cor pulmonale ([facility] V24, [facility] V28) 01/31/202204/2024 Encounters Date Type Department Care Team Description 08/10/2024 5:00 PM EDT Hospital Encounter Radiology Department - [address] [phone] 08/07/2024 Telephone Adult Medicine [address] [phone] Daysi Beckett MD Referral (Nephrology Insurance Referral) 08/02/2024 2:30 PM EDT Office Visit Obstetrics and Gynecology - [address] [phone] Staci Simmons CNM Encounter for annual routine gynecological examination (Primary Dx); Dysmenorrhea; Intrauterine device surveillance 06/22/2024 9:30 AM EST Office Visit Adult Medicine [address] [phone] Maggy Anderson PA Primary hypertension (Primary Dx); Refused influenza vaccine; Refused pneumococcal vaccine; Current severe episode of major depressive disorder without psychotic features, unspecified whether recurrent ([facility] V24, [facility] V28); Hyperlipidemia, unspecified hyperlipidemia type; Morbid obesity with BMI of 40.0-44.9, adult ([facility] V24, [facility] V28); Elevated random blood glucose level; Need for hepatitis C screening test; Opioid contract exists; Renal fibromuscular dysplasia ([facility] V24); Varicose veins of lower extremity with both inflammation and ulcer limited to breakdown of skin, unspecified laterality, unspecified ulceration site ([facility] V24, [facility] V28); Fibromyalgia; Chronic bilateral thoracic back pain; Anxiety 05/17/2024 3:30 PM EST Office Visit Adult Medicine [address] [phone] Zack Cavanaugh PA Acute upper respiratory infection, unspecified (Primary Dx) 05/17/2024 Nurse Triage Adult Medicine [address] [phone] Daysi Beckett MD Fever from Last 3 Months Immunizations Name Administration Dates Next Due Influenza Quadravalent, MDCK , 0.5ml, preservative free (Flucelvax) 6mo and older 02/20/2020 Influenza trivalent, with preservative (Fluzone; Afluria) 6mo and older 02/17/2016,02/28/2014,02/25/2012,2010,01/22/2010,01/11/2008,03/03/2005 [place] SARS-CoV-2 COVID-19, mRNA, LNP-S, preservative free 04/20/2021,03/29/2021 Td Tetanus diptheria (Tdvax) 7yo and older 06/18/2022,06/29/2005 Td Tetanus diptheria, preser vative free (Tenivac) 7yo and older 06/18/2022 Tdap Tetanus diptheria acell ular pertussis (Boostrix; Adacel) 7yo and older 07/31/2011 Surgical History Surgery Date Site/Laterality Comments OTHER SURGICAL HISTORY 06/2016 PROCEDURE: MAMMOGRAM Medical History Medical History Date Comments Thoracic back pain MRI mild DJD T3-4, T4-5 Allergic rhinitis IBS (irritable bowel syndrome) Anxiety Fibromyalgia Hypertension Fibromuscular dysplasia ([facility] V24) 12/2023 renal fibromuscular dysplasia Superficial phlebitis while preg nant, treated with lovenox Depression Morbid obesity with BMI of 4 0.0-44.9, adult ([facility] V24, [facility] V28) Varicose veins of both lower extremities had laser procedure through vascular, 01/05 Pneumonia due to COVID-19 virus 12/2020 Pulmonary emboli ([facility] V2 4, [facility] V28) 12/2020 due to covid Backache, unspecified 06/29/2005 DX:Backach e, unspecified Asymptomatic varicose veins 06/29/2005 DX:A symptomatic varicose veins Allergic rhinitis, cause unspecified 10/12/2006 DX:Allergic rhinitis, cause unspecified Depression 07/17/2010 DX:Depression Morbid obesity ([facility] V24, [facility] V28) 10/12/2006 DX:Morbid obesity ([facility]) Obesity 08/14/2010 DX:Obesity Superficial phlebitis 08/27/2011 DX:Superfi cial phlebitis Irritable bowel syndrome wit h diarrhea 11/11/2015 DX:Irritable bowel syndrome with diarrhea IUD (intrauterine device) in place 2017 DX:IUD (intrauterine device) in place; COMMENT: Mirena Fibromyalgia 11/07/2018 DX:Fibromyalgia Pneumonia due to COVID-19 virus 02/05/2021 DX:Pneumonia due to COVID-19 virus; COMMENT: 01/14 Pulmonary emboli ([facility] V2 4, [facility] V28) 02/05/2021 DX:Pulmonary emboli ([facility]); C OMMENT: 01/14 due to covid Fibromuscular dysplasia ([facility] V24) 01/13/2024 DX:Fibromuscular dysplasia ([facility]); COMMENT: 01/17 renal fibromuscular dysplasia Family History Medical History Relation Name Comments Cataracts Father hypertension, C AD, dementia Hypertension Father dementia, CAD Glaucoma Maternal Grandfather catarac t Hypertension Mother COPD, Hyperlipidemia Other 2 sons Hyperlipidemia Paternal Grandfather Alzheimer's disease Paternal Grandmother Breast cancer Neg Hx Ovarian cancer Neg Hx Uterine cancer Neg Hx Relation Name Status Comments Father Maternal Grandfather Maternal Grandmother Mother Other Paternal Grandfather Paternal Grandmother Social History Tobacco Use Types Packs/Day Years Used Date Smoking Tobacco: Never Smokeless Tobacco: Never Tobacco Cessation:Counseling Given: Not Answered Alcohol Use Standard Drinks/Week Comments Yes 0 [...] care for your loved ones. For example, children librarian or elderly care for an older adult? [...] on file Sexual Orientation Not on file Obstetrics History Para Term AB IAB SAB Ectopic Multiple Livin g Live Births 5 4 4 1 1 4 4 Date Outcome GA Total Labor Labor/2nd/3rd Weight Sex Type Anes PTL Irais A1 A5 Name Clin SAB Comments:System Genera blake. Please review and update details. Term Vag-S pont Living Term Vag-S pont Living Term Vag-S pont Living Term Vag-S pont Living Last Filed Vital Signs Vital Sign Reading Time Taken Comments Blood Pressure 128/82 08/02/2024 2:32 PM EDT Pulse 96 08/02/2024 2:32 PM EDT Temperature 36.2 ??C (97.1 ??F) 06/22/2024 9:32 AM ES T Respiratory Rate 16 06/22/2024 9:32 AM EST Oxygen Saturation 96% 06/22/2024 9:32 AM EST Inhaled Oxygen Concentration - - Weight 103 kg (226 lb) 08/02/2024 2:32 PM EDT Height 157.5 cm (5' 2 ) 08/02/2024 2:32 PM EDT Body Mass Index 41.34 08/02/2024 2:32 PM EDT Plan of Treatment Upcoming Encounters Date Type Department Care Team (Late st Contact Info) Description 08/10/2024 5:00 PM EDT Hospital Encounter Radiology Department - [address] [phone] 09/20/2024 8:45 AM EDT Office Visit Adult Medicine [address] [phone] Daysi Beckett MD [address] [place] [address] 10/04/2024 1:30 PM EDT Appointment Radiology Department - [address] [phone] Health Maintenance Due Date Last Done Comments Hepatitis B Vaccines (1 of 3 - 19+ 3-dose series) 1993 Colorectal Cancer Screening: FIT-DNA (Cologuard) 04/04/2022 HIV Screening 04/04/2022 COVID-19 Vaccine ( - season) 2023 04/20/2021, 03/29/2021 Pneumococcal Vaccine: 50+ Years (1 of 1 - PCV) 01/09/2024 Influenza Vaccine (Season Ended) 2024 02/20/2020, 02/17/2016, 02/28/2014, Additional history exists Social Influencers of Health Screening 06/22/2025 06/22/2024 Depression Screening 08/02/2025 08/02/2024, 01/26/20 Hypertension/CHF/CAD Annual BMP Blood Test 08/08/2025 08/08/2024, 06/18/2023 Breast Cancer Screening 09/22/2025 09/23/19, 09/23/2023, 03/24/2023, Additional history exists Cervical Cancer Screening: HPV 12/13/2025 12/13/2020 Cholesterol Screening (Lipid Panel) 08/08/2029 08/08/2024, 06/18/2023 DTaP,Tdap,and Td Vaccines (5 - Td or Tdap) 06/18/2032 06/18/2022, 06/18/2022, 07/31/2011, Additional history exists Medicare Annual Wellness Visit 2039 Postponed from 04/04/2022 (Not clinically appropriate to address at this time) Hepatitis C Screening Completed 08/08/2024 HIB Vaccines Aged Out No longer eligi ble based on patient's age to complete this topic HPV Vaccines Aged Out No longer eligi ble based on patient's age to complete this topic Hepatitis A Vaccines Aged Out No long er eligible based on patient's age to complete this topic IPV Vaccines Aged Out No longer eligi ble based on patient's age to complete this topic MMR Vaccines Aged Out No longer eligi ble based on patient's age to complete this topic Meningococcal ACWY Vaccine Aged Out N o longer eligible based on patient's age to complete this topic Meningococcal B Vaccine Aged Out No l onger eligible based on patient's age to complete this topic Pneumococcal Vaccine: Pediatrics (0 to 5 Years) and At-Risk Patients (6 to 64 Years) Aged Out No longer eligible based on patient's age to complete this topic RSV Immunization Patients Under 20 months Aged Out No longer eligible based on patient's age to complete this topic Varicella Vaccines Aged Out No longer eligible based on patient's age to complete this topic Zoster Vaccines Discontinued Procedures Procedure Name Priority Date/Time Associated Diagnosis Comments DRUG ABUSE SCREEN EXPANDED WITH REFLEX CONFIRMATION, URINE Routine 08/09/2024 9:01 AM EDT Opioid contract exists CBC WITH AUTO DIFFERENTIAL Routine 08/08/2024 9:46 AM EDT Refused influenza vaccine Refused pneumococcal vaccine Current severe episode of major depressive disorder without psychotic features, unspecified whether recurrent (CMS/HCC V24, CMS/HCC V28) Primary hypertension Hyperlipidemia, unspecified hyperlipidemia type Morbid obesity with BMI of 40.0-44.9, adult (CMS/HCC V24, CMS/HCC V28) LIPID PANEL WITH REFLEX TO DIRECT LDL Routine 08/08/2024 9:46 AM EDT Hyperlipidemia, unspecified hyperlipidemia type COMPREHENSIVE METABOLIC PANEL Routine 08/08/2024 9:46 AM EDT Refused influenza vaccine Refused pneumococcal vaccine Current severe episode of major depressive disorder without psychotic features, unspecified whether recurrent (CMS/HCC V24, CMS/HCC V28) Primary hypertension Hyperlipidemia, unspecified hyperlipidemia type Morbid obesity with BMI of 40.0-44.9, adult (CMS/HCC V24, CMS/HCC V28) CBC AND DIFFERENTIAL Routine 08/08/2024 9:46 AM EDT Refused influenza vaccine Refused pneumococcal vaccine Current severe episode of major depressive disorder without psychotic features, unspecified whether recurrent (CMS/HCC V24, CMS/HCC V28) Primary hypertension Hyperlipidemia, unspecified hyperlipidemia type Morbid obesity with BMI of 40.0-44.9, adult (CMS/HCC V24, CMS/HCC V28) HEMOGLOBIN A1C Routine 08/08/2024 9:46 AM EDT Elevated random blood glucose level HEPATITIS C ANTIBODY Routine 08/08/2024 9:46 AM EDT Need for hepatitis C screening test [id number], RSV, FLU A AND B QUALITATIVE RT-PCR, LOCAL REFERENCE LAB Routine 05/17/2024 4:15 PM EST Acute upper respiratory infection, unspecified DEPRESSION SCREENING Routine 01/26/2024 DIAGNOSTIC MAMMOGRAPHY INCLUDING CAD BILATERAL Routine 09/23/2023 3:51 PM EDT Other abnormal and inconclusive findings on diagnostic imaging of breast HPV Routine 12/13/2020 from Last 3 Months or Most Recently Relevant to Health Maintenance Results * Drug abuse screen expanded with reflex confirmation, urine (08/09/2024 9:01 AM EDT) Amphetamine Screen, Ur Negative Negative LAB CHEMISTRY METHOD 08/09/2024 11:09 AM [facility] Comment:Certain OTC medicati ons containing ephedrine, phenylephrine, pseudoephedrine and phenylpropanolamine can cause false positive results. Barbiturate Screen, Ur Negative Negative LAB CHEMISTRY METHOD 08/09/2024 11:09 AM [facility] Benzodiazepine Screen, Ur Negative Negative LAB CHEMISTRY METHOD 08/09/2024 11:09 AM [facility] Cocaine Screen, Ur Negative Negative LAB CHEMISTRY METHOD 08/09/2024 11:09 AM [facility] Opiate Screen, Ur Negative Negative LAB CHEMISTRY METHOD 08/09/2024 11:09 AM [facility] Cannabinoid (THC) Screen, Ur Negative Negative LAB CHEMISTRY METHOD 08/09/2024 11:09 AM [facility] Comment:Specimens from patie nts taking pantoprazole sodium (Protonix) have been shown to produce false positive results. Fentanyl, Ur Negative Negative LAB CHEMISTRY METHOD 08/09/2024 11:09 AM [facility] Oxycodone Screen, Ur Negative Negative LAB CHEMISTRY METHOD 08/09/2024 11:09 AM [facility] Urine Urine specimen obtained by clean catch procedure / Unknown Non-blood Collection / Unknown 08/09/2024 9:01 AM EDT 08/09/2024 9:[address] [facility] - 08/09/2024 11:09 AM EDT Assay cutoffs: Amphetamines ? 1000 ng/mL Barbiturates ?200 ng/mL Benzodiazepines ?? 200 ng/mL Cocaine ? 300 ng/mL Fentanyl ?1 ng/mL Opiates ? 300 ng/mL Oxycodone ? 100 ng/mL THC ?50 ng/mL Semi-quantitative assay for screening purposes only. Unconfirmed screening result should not be used for non-medical purposes. *POSITIVE RESULTS ARE AUTOMATICALLY SENT FOR ALTERNATE METHOD CONFIRMATION* us Maggy [facility] URINE ORDERABLES Final Re sult Performing Organization Address [facility] de Phone Number [facility] [address] [place] [address], [place] [phone] * Hepatitis C antibody (08/08/2024 9:46 AM EDT) Hepatitis C Antibody Negative Negative LAB CHEMISTRY METHOD 08/08/2024 2:[address] [facility] Blood Venous blood specimen / Unknown Venipuncture / Unknown 08/08/2024 9:46 AM EDT 08/08/2024 9:46 AM EDT us Maggy [facility] BLOOD ORDERABLES Final Re sult Performing Organization Address [facility] Co de Phone Number [facility] [address] [place] [address], [place] [phone] * (ABNORMAL) Lipid panel with reflex to direct LDL (08/08/2024 9:46 AM EDT) Cholesterol 257(H) 0 - 200 mg/dL LAB CHEMISTRY METHOD 08/08/2024 12:[address] [facility] Triglycerides 235(H) 0 - 150 mg/dL LAB CHEMISTRY METHOD 08/08/2024 12:[address] [facility] HDL 57 >=40 mg/dL LAB CHEMISTRY METHOD 08/08/2024 12:[address] [facility] LDL Calculated 153(H) 0 - 100 mg/dL LAB CHEMISTRY METHOD 08/08/2024 12:[address] [facility] VLDL Cholesterol Young 47 mg/dL LAB CHEMISTRY METHOD 08/08/2024 12:[address] [facility] Non HDL Chol. (LDL+VLDL) 200(H) <145 mg/dL LAB CHEMISTRY METHOD 08/08/2024 12:[address] [facility] Chol/HDL Ratio 4.5(H) 0.0 - 4.4 LAB CHEMISTRY METHOD 08/08/2024 12:[address] [facility] Blood Venous blood specimen / Unknown Venipuncture / Unknown 08/08/2024 9:46 AM EDT 08/08/2024 9:46 AM EDT us Maggy WAT[facility] BLOOD ORDERABLES Final Re sult [facility] [address] [place] [address], * (ABNORMAL) CBC auto differential (08/08/2024 9:46 AM EDT) Pathologist [facility] WBC 8.9 4.8 - 10.8 K/[facility] LAB HEMETOLOGY METHOD 08/08/2024 12:[address] [facility] RBC 4.80 3.80 - 4.80 M/[facility] LAB HEMETOLOGY METHOD 08/08/2024 12:29 PM [facility] Hemoglobin 13.2 11.5 - 16.0 g/dL LAB HEMETOLOGY METHOD 08/08/2024 12:29 PM [facility] Hematocrit 39.2 35.0 - 47.0 % LAB HEMETOLOGY METHOD 08/08/2024 12:29 PM [facility] MCV 81.0 79.0 - 98.0 FL LAB HEMETOLOGY METHOD 08/08/2024 12:29 PM [facility] MCH 27.3 27.0 - 32.0 pcg LAB HEMETOLOGY METHOD 08/08/2024 12:29 PM [facility] MCHC 33.7 32.0 - 37.0 g/dL LAB HEMETOLOGY METHOD 08/08/2024 12:29 PM [facility] RDW 14.6 11.0 - 15.0 % LAB HEMETOLOGY METHOD 08/08/2024 12:29 PM [facility] Platelets 301 130 - 400 K/mcL LAB HEMETOLOGY METHOD 08/08/2024 12:29 PM [facility] MPV 9.9 7.0 - 11.0 FL LAB HEMETOLOGY METHOD 08/08/2024 12:29 PM [facility] NRBC 0.0 <1.0 % LAB HEMETOLOGY METHOD 08/08/2024 12:29 PM [facility] NRBC Absolute 0.00 <0.10 K/mcL LAB HEMETOLOGY METHOD 08/08/2024 12:29 PM [facility] Neutrophils Relative 70.6 % LAB HEMETOLOGY METHOD 08/08/2024 12:29 PM [facility] Lymphocytes Relative 20.2 % LAB HEMETOLOGY METHOD 08/08/2024 12:29 PM [facility] Monocytes Relative 6.9 % LAB HEMETOLOGY METHOD 08/08/2024 12:[address] [facility] Eosinophils Relative 1.1 % LAB HEMETOLOGY METHOD 08/08/2024 12:[address] [facility] Basophils Relative 0.7 % LAB HEMETOLOGY METHOD 08/08/2024 12:[address] [facility] Immature Granulocytes Relative 0.5 % LAB HEMETOLOGY METHOD 08/08/2024 12:[address] [facility] Neutrophils Absolute 6.25 1.50 - 7.00 K/mcL LAB HEMETOLOGY METHOD 08/08/2024 12:[address] [facility] Lymphocytes Absolute 1.79 1.00 - 5.00 K/mcL LAB HEMETOLOGY METHOD 08/08[facility]24 [facility] Monocytes Absolute 0.61 0.20 - 1.00 K/mcL LAB HEMETOLOGY METHOD 08/08/2024 12:[address] [facility] Eosinophils Absolute 0.10 0.00 - 0.50 K/mcL LAB HEMETOLOGY METHOD 08/08/2024 12:29 [facility] Basophils Absolute 0.06 0.00 - 0.20 K/mcL LAB HEMETOLOGY METHOD 08/08/2024 12:29 PM [facility] Immature Granulocytes Absolute 0.04(H) 0.00 - 0.03 K/mcL LAB HEMETOLOGY METHOD 08/08/2024 12:[address] [facility] Blood Venous blood specimen / Unknown Venipuncture / Unknown 08/08/2024 9:46 AM EDT 08/08/2024 9:46 AM EDT us Maggy [facility] LAB BLOOD ORDERABLES Final Re sult [facility] [address] [place] [address], [place] [phone] * Hemoglobin A1c (08/08/2024 9:46 AM EDT) [facility] Hemoglobin A1C 5.5 <6.5 % LAB CHEMISTRY METHOD 08/08/2024 9:[address] [facility] Mean Bld Glu Estim. 111 mg/dL LAB CHEMISTRY METHOD 08/08/2024 9:[address] [facility] Blood Venous blood specimen / Unknown Venipuncture / Unknown 08/08/2024 9:46 AM EDT 08/08/2024 9:46 AM EDT Maggy WATSON LAB BLOOD ORDERABLES Final Re sult [facility] [address] [place] [address], * Comprehensive metabolic panel (08/08/2024 9:46 AM EDT) [facility] Sodium 139 133 - 145 mmol/L LAB CHEMISTRY METHOD 08/08/2024 12:55 PM [facility] Potassium 3.7 3.5 - 5.5 mmol/L LAB CHEMISTRY METHOD 08/08/2024 12:55 PM [facility] Chloride 107 96 - 110 mmol/L LAB CHEMISTRY METHOD 08/08/2024 12:55 PM [facility] CO2 24 21 - 32 mmol/L LAB CHEMISTRY METHOD 08/08/2024 12:55 PM [facility] Anion Gap 8 3 - 11 LAB CHEMISTRY METHOD 08/08/2024 12:55 PM [facility] Glucose 100 70 - 100 mg/dL LAB CHEMISTRY METHOD 08/08/2024 12:55 PM [facility] BUN 15 5 - 25 mg/dL LAB CHEMISTRY METHOD 08/08/2024 12:55 PM [facility] Creatinine 0.72 0.50 - 1.10 mg/dL LAB CHEMISTRY METHOD 08/08/2024 12:55 PM [facility] eGFR 102 >=60 mL/min/1. 73m2 LAB CHEMISTRY METHOD 08/08/2024 12:55 PM [facility] Comment:Calculation based on the??Chronic Kidney Disease Epidemiology Collaboration (CKD-EPI) equation refit??without adjustment for race. BUN/Creatinine Ratio 20.8 LAB CHEMISTRY METHOD 08/08/2024 12:55 PM [facility] Calcium 9.8 8.5 - 10.5 mg/dL LAB CHEMISTRY METHOD 08/08/2024 12:55 PM [facility] AST (SGOT) 14 10 - 42 unit/L LAB CHEMISTRY METHOD 08/08/2024 12:55 PM [facility] ALT (SGPT) 21 10 - 60 unit/L LAB CHEMISTRY METHOD 08/08/2024 12:55 PM [facility] Alkaline Phosphatase 75 42 - 121 unit/L LAB CHEMISTRY METHOD 08/08/2024 12:55 PM [facility] Total Protein 7.6 6.0 - 8.0 g/dL LAB CHEMISTRY METHOD 08/08/2024 12:55 PM [facility] Albumin 3.8 3.2 - 5.0 g/dL LAB CHEMISTRY METHOD 08/08/2024 12:55 PM [facility] Total Bilirubin 0.6 0.0 - 1.4 mg/dL LAB CHEMISTRY METHOD 08/08/2024 12:55 PM [facility] Blood Venous blood specimen / Unknown Venipuncture / Unknown 08/08/2024 9:46 AM EDT 08/08/2024 9:46 AM EDT us Maggy WATSON LAB BLOOD ORDERABLES Final Re sult [facility] [address] [place] [address], * [id number], RSV, Influenza A and B qualitative RT-PCR (05/17/2024 4:15 PM EST) SARS COV-2 Not Detected Not Detected LAB MOLECULAR DIAGNOSTICS METHOD 05/17/2024 10:[address] [facility] Comment: Disclaimer: The manner in which this information is used to guide patient care is the responsibility of the healthcare provider. Testing was performed using the Evolver Alinity m SARS-CoV-2 test. This test has been authorized by FDA under an Emergency Use Authorization (EUA). This test is only authorized for the duration of time the declaration that circumstances exist justifying the authorization of the emergency use of in vitro diagnostic tests for detection of SARS-CoV-2 virus and/or diagnosis of COVID-19 infection under section 564(b)(1) of the Act, 21 U.S.C. 360bbb- 3(b)(1), unless the authorization is terminated or revoked sooner. Fact sheet for Healthcare Providers can be found at: https://www.fda.gov/media/702227/download Fact sheet for Patients can be found at: https://www.fda.gov/media/339755/download Influenza A PCR Not Detected Not Detected LAB MOLECULAR DIAGNOSTICS METHOD 05/17/2024 10:[address] [facility] Influenza B PCR Not Detected Not Detected LAB MOLECULAR DIAGNOSTICS METHOD 05/17/2024 10:[address] [facility] RSV PCR Not Detected Not Detected LAB MOLECULAR DIAGNOSTICS METHOD 05/17/2024 10:[address] [facility] Swab Nasopharyngeal structure / Unknown Non-blood Collection / Unknown 05/17/2024 4:15 PM EST 05/17/2024 4:15 PM EST us [facility] MICROBIOLOGY - GENER AL ORDERABLES Final Result [facility] [address] [place] [address], * Depression Screening (01/26/2024) Depression Screening Abstracted us Historical Provider HEALTH MAINTENANCE Final Result * DIAGNOSTIC MAMMOGRAPHY INCLUDING CAD BILATERAL (09/23/2023 3:51 PM EDT) Anatomical Region Laterality Modality Mammography 03/24/2023 3:35 PM EST Narrative 09/23/2023 4:08 PM EDT This is a summary report. The complete report is available in the patient's medical record. If you cannot access the medical record, please contact the sending organization for a detailed fax or copy. History: 4th 6-month follow-up of left breast calcifications in the upper outer quadrant posterior depth at about 12 cm from the nipple Study: Bilateral diagnostic mammography with tomosynthesis and CAD Technique: Bilateral full-field digital diagnostic mammography is obtained and read in conjunction with computer aided detection. ??Tomosynthesis as well as 2D C- View imaging were obtained. ??Spot magnified compression views of the left breast calcifications were also obtained. Comparison: Comparison made to multiple prior, most recent left breast diagnostic mammogram on March 24, 2023, and most remote June 13, 2020. Breast composition: There are scattered areas of fibroglandular density. Right breast: No suspicious masses, suspicious calcifications or other abnormalities are seen. Left breast: Diffuse round calcifications in the upper outer quadrant posterior depth that were being followed up since August 2021 are no longer seen, however, the additional faint amorphous calcifications in the immediate vicinity at about 11- 12 cm from the nipple still persists. ??No suspicious masses, new calcifications or other abnormalities are seen. IMPRESSION: Impression: Right breast: Negative, no specific mammographic evidence of malignancy. ??Normal interval follow-up is recommended in 12 months. Left breast: Loosely grouped faint calcifications in the upper outer quadrant posterior depth. ??Probably benign. ??A 12-month follow-up is recommended as bilateral diagnostic mammogram and spot magnified compression views of the left breast calcifications. BI-RADS: Category 3: Probably benign Findings and recommendations were discussed with the patient at completion of the study. Procedure Note Yonathan Valdez MD - 12/13/2023 This is a summary report. The complete report is available in thepatient's medical record. If you cannot access the medical record, pleasecontact the sending organization for a detailed fax or copy. History: 4th 6-month follow-up of left breast calcifications in the upperouter quadrant posterior depth at about 12 cm from the nipple Study: Bilateral diagnostic mammography with tomosynthesis and CAD Technique: Bilateral full-field digital diagnostic mammography is obtainedand read in conjunction with computer aided detection. Tomosynthesis aswell as 2D C-View imaging were obtained. Spot magnified compression viewsof the left breast calcifications were also obtained. Comparison: Comparison made to multiple prior, most recent left breastdiagnostic mammogram on March 24, 2023, and most remote May. Breast composition: There are scattered areas of fibroglandular density. Right breast: No suspicious masses, suspicious calcifications or otherabnormalities are seen. Left breast: Diffuse round calcifications in the upper outer quadrantposterior depth that were being followed up since August 2021 are no longerseen, however, the additional faint amorphous calcifications in theimmediate vicinity at about 11-12 cm from the nipple still persists. Nosuspicious masses, new calcifications or other abnormalities are seen. IMPRESSION: Impression: Right breast: Negative, no specific mammographic evidence of malignancy.Normal interval follow-up is recommended in 12 months. Left breast: Loosely grouped faint calcifications in the upper outerquadrant posterior depth. Probably benign. A 12-month follow-up isrecommended as bilateral diagnostic mammogram and spot magnifiedcompression views of the left breast calcifications. BI-RADS: Category 3: Probably benign Findings and recommendations were discussed with the patient at completionof the study. Daysi Beckett MD IMG BI PROCEDURES Final Result * Cervical Cancer Screening: HPV (12/13/2020) Cervical Cancer Screening: HPV Negative, Abstracted Historical Provider HEALTH MAINTENANCE Final Result from Last 3 Months or Most Recently Relevant to Health Maintenance [place] Care Teams Asphalt Spreader Relationship Specialty Start Date End Date Daysi Beckett MD [address] [place] [address] PCP - General 12/30/04
[2024-08-10 17:33] LABS: Anion Gap 13 (12-20); Blood Urea Nitrogen 17 mg/dL (9-16); Carbon Dioxide 24 mmol/L (22-29); Chloride 105 mmol/L (96-108); Estimated Glomerular Filt Rate > 60; Potassium 3.4 mmol/L (3.3-5.1); Sodium 139 mmol/L (135-145)
== END 2024-08-10 12:27 | disposition home or self-care (01) ==
LOC: HO.HMGCLDS 12:26
PROVIDERS: PCP Internal Medicine; Visit Provider Internal Medicine Nephrology
DX: I77.3 Arterial fibromuscular dysplasia (principal); I10 Essential (primary) hypertension
CPT/HCPCS: 36415; 80051; 82565; 84520

== ENCOUNTER 2024-08-11 09:29 | Outpatient (AMB) | payer BC, MEDICAID, SELFPAY ==
--- NOTE | 2024-08-11 09:45 | HO.NEPHOV_ITS ---
Vital Signs 08/11/24 09:46 Height 5 ft 2 in Weight 222 lb 8 oz BMI 40.7 BP 122/80 Blood Pressure Location Rt brachial Position Sitting Pulse 77 Pulse Source Pulse Oximeter Pulse Oximetry (%) 97 Oxygen Delivery Method Room Air Intake Visit Reasons: 6mon follow up-[facility] Rehabilitation Assistant Required: No Accompanied by: Self / Same As Patient Allergies sulfamethoxazole [From BACTRIM] Allergy (Unknown, Verified 08/11/24 09:46) VOMITING trimethoprim [From BACTRIM] Allergy (Unknown, Verified 08/11/24 09:46) VOMITING naproxen [NAPROXEN] Adverse Reaction (Intermediate, Verified 08/11/24 09:46) NAUSEA & VOMITING HPI Comments Details: 49-year-old female who has H/O hypertension with H/O presenting to the [facility] for evaluation of uncontrolled blood pressures with headache. She had worsening of blood pressure control since the end of November and has been working with her primary care provider on optimizing blood pressure management. She had multiple medication changes with no improvement in BP. She did not have any vision changes, nausea, vomiting, shortness of breath, palpitations, syncope, chest pain and has no H/O drug use. Her BP on arrival was 213/86 with brief improvement to 186/100 following [address] was negative for any acute intracranial abnormality. Chest x-ray unremarkable. EKG shows NSR, rate 76 without any acute ischemic changes. Echo showed preserved ejection fraction, no structural heart disease. Renal US obtained showed suggestion of renal artery stenosis. 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 Rest of W/O to R/O secondary etiology were negative. Her BP is well controlled now and feels well. [facility] Medical History (Updated 08/15/24 @ 20:34 by Shiva Monk MD) Venous ulcer Pulmonary embolism COVID-19 HTN (hypertension) Surgical History No significant past surgical history Social History Household Members: Spouse and Children Housing: House Do you presently have visiting nurse or other home services: No Patient Tobacco Use Status: Never used Tobacco e-Cigarette/Vaping Use: Never Used Advance Directives Date on File: 01/16/21 service: No Current occupational status: disabled Review of Systems Const All systems reviewed & are unremarkable except as noted in HPI and below Physical Exam Vital Signs: Last Vital Signs Pulse 77 08/11/24 09:46 BP 122/80 08/11/24 09:46 Pulse Ox 97 08/11/24 09:46 Oxygen Delivery Method Room Air 08/11/24 09:46 BMI result Body Mass Index 40.7 Const General: comfortable and no acute distress Orientation/consciousness: patient oriented x3 HEENT Head: Yes normocephalic Mouth: Normal oral and palatal mucosa present Eyes EOM: EOMs intact bilaterally Neck Neck: Yes supple Resp Auscultation: clear to auscultation bilaterally Cardio Jugular venous distension: no JVD Rate: regular rate GI Palpation (GI): Soft to palpation Auscultation: normal bowel sounds General: Yes no CVA tenderness Back/Spine/Pelvis Back: no CVA tenderness Skin General skin exam: no rashes or lesions noted Neuro General: patient oriented x3 and moves all extremities Extrem General: Yes no pedal edema Results Reviewed Nephrology Results: Sodium 139 mmol/L (135-145) 08/10/24 Potassium 3.4 mmol/L (3.3-5.1) 08/10/24 Chloride 105 mmol/L (96-108) 08/10/24 Carbon Dioxide 24 mmol/L (22-29) 08/10/24 BUN 17 mg/dL (9-16) H 08/10/24 Creatinine 0.70 mg/dL (0.5-1.4) 08/10/24 Calcium 9.2 mg/dL (8.4-10.2) 01/06/24 Urine Protein Negative mg/dL (Neg-Trace) 01/04/24 Renal US 01/04/24 Assessment & Plan Assessment & Plan (1) HTN (hypertension): Code(s): I10 - Essential (primary) hypertension Category: Medical Qualifiers: Hypertension type: renovascular hypertension Qualified Code(s): I15.0 - Renovascular hypertension (2) Hypokalemia: Code(s): E87.6 - Hypokalemia Category: Medical Plan C/W current dose of anti hypertensive medications Potassium replacement given; F/U labs ordered No has no retinopathy/proteinuria Renal function normal; K low normal Low Na diet; CTA showed FMD renal arteries Will benefit from sleep study as oupt Needs to continue life style modifications All questions answered; F/U given Orders: Orders Creatinine 6 Months I15.0 - Renovascular hypertension Blood Urea Nitrogen 6 Months I15.0 - Renovascular hypertension Electrolytes 6 Months I15.0 - Renovascular hypertension Creatinine 3 Months I15.0 - Renovascular hypertension Electrolytes 3 Months I15.0 - Renovascular hypertension Blood Urea Nitrogen 3 Months I15.0 - Renovascular hypertension Medications: New potassium chloride ER 10 mEq PO DAILY 10 tabs 0RF Coding Level of Care Code Est Pt Level 4 (86933) Diagnoses Renovascular hypertension I15.0 Hypertension type: renovascular hypertension Hypokalemia E87.6
[2024-08-11 09:46] VITALS: BP 122/80; PULSE 77; O2SAT 97; BMI 40.7
--- OUTSIDE RECORDS SUMMARY | 2024-08-11 10:00 | XMS_ITS | Encounter Summary ---
Author Organization [facility] [place] [address] Care Team Providers Care Shoe Turner Name Role Phone Daysi Beckett MD Primary Care Provider [phone] Reason for Referral * Imaging (Routine) - Pending Review Specialty Diagnoses / Procedures Referred By Darius jay Referred To Contact Radiology Diagnoses Dysmenorrhea Procedures US Pelvis Non OB Complete w Transvaginal US Pelvis Non OB Complete Staci Simmons CNM [address] [place] [address] Phone: tel: fax: [address] Phone: tel: Referral ID Status Reason Start Date Expiration Date V isits Requested Visits Authorized [id number] Pending Review 08/02/2024 08/02/2025 1 1 Reason for Visit * Imaging (Routine) - Pending Review Specialty Diagnoses / Procedures Referred By Darius jay Referred To Contact Radiology Diagnoses Dysmenorrhea Procedures US Pelvis Non OB Complete w Transvaginal US Pelvis Non OB Complete Staci Simmons CNM [address], [place] Phone: tel: fax: [facility] [address] Phone: tel: Referral ID Status Reason Start Date Expiration Date V isisanjuanita Requested Visits Authorized [id number] Pending Review 08/02/2024 08/02/2025 1 1 Encounter Details Date Type Department Care Team (Latest Contact Info) Description 08/10/2024 4:49 PM EDT - 08/10/2024 11:59 PM EDT Hospital Encounter Radiology Department - [address] [phone] Dysmenorrhea Discharge Disposition: Home or Self Care Social History Tobacco Use Types Packs/Day Years [...] for your loved ones. For example, child and adolescent psychiatrist or elderly care for an older adult? [...] on file documented as of this encounter Medications at Time of Discharge busPIRone (BUSPAR) 15 mg tablet TAKE ONE TABLET BY MOUTH TWICE A DAY 180 tablet 1 03/29/2024 busPIRone (BUSPAR) 15 mg tablet Take 1 tablet (15 mg total) by mouth 2 (two) times a day. Take 1 Tablet by mouth 2 times daily. 180 each 03/20/2024 carvediloL (COREG) 6.25 mg tablet Take 1 tablet (6.25 mg total) by mouth 2 (two) times a day with meals. 180 tablet 1 03/20/2024 hydroCHLOROthiaz zaria 12.5 mg tablet Take 1 tablet (12.5 mg total) by mouth 1 (one) time each day. 90 tablet 1 03/20/2024 HYDROcodone-acet aminophen (NORCO) 5-325 mg per tablet Take 1 tablet by mouth 1 (one) time each day if needed for severe pain. Take 1 Tablet by mouth daily as needed for Pain. Max Daily Amount: 1 tablet 30 tablet 08/02/2024 levonorgestreL (MIRENA) 21 mcg/24 hr (8 yrs) 52 mg IUD 1 Each by Intrauterine route once. multivitamin (MULTIPLE VITAMINS ORAL) Take 1 tablet by mouth daily. sertraline (ZOLOFT) 100 mg tablet TAKE ONE TABLET BY MOUTH EVERY DAY 90 tablet 1 03/29/2024 sertraline (ZOLOFT) 100 mg tablet Take 1 tablet (100 mg total) by mouth 1 (one) time each day. Take 1 Tablet by mouth every day 90 each 1 03/20/2024 tiZANidine (ZANAFLEX) 2 mg tablet Take 1 tablet (2 mg total) by mouth 2 (two) times a week. 30 tablet 08/03/2024 UNABLE TO FIND Take 2 Each by mouth daily. documented as of this encounter Discharge Disposition Disposition Code Departure Means Destination Home or Self Care documented in this encounter Plan of Treatment Upcoming Encounters Date Type Department Care Team (Late st Contact Info) Description 09/20/2024 8:45 AM EDT Office Visit Adult Medicine [address] [phone] Daysi Beckett MD [address] [place] [address] 10/04/2024 1:30 PM EDT Appointment Radiology Department - [address] [phone] documented as of this encounter Procedures Procedure Name Priority Date/Time Associated Diagnosis Comments US PELVIS NON OB COMPLETE W TRANSVAGINAL Routine 08/10/2024 5:25 PM EDT Dysmenorrhea documented in this encounter Results * US Pelvis Non OB Complete w Transvaginal (08/10/2024 5:25 PM EDT) Anatomical Region Laterality Modality Body, Pelvis Ultrasound 08/10/2024 6:15 PM EDT Impressions 08/10/2024 6:25 PM EDT IUD appears to be abnormally positioned with the tip extending into the anterior myometrium. 3.6 x 3.7 x 3.8 cm complex cyst of the right ovary. Fibroid uterus. ?? -------- FINAL REPORT -------- Dictated By: Marion Márquez Dictated Date: 08/10/2024 18:15 ET Assigned Physician: Marion Márquez Reviewed and Electronically Signed By: aMrion Márquez Signed Date: 08/10/2024 18:25 ET Workstation ID: [id number] Transcribed By: Self Edit Transcribed Date: 08/10/2024 18:15 ET Narrative 08/10/2024 6:25 PM EDT US PELVIS NON OB COMPLETE W TRANSVAGINAL PELVIC ULTRASOUND History: ??Pain with IUD. Procedure: Real-time and color Doppler pelvic and transvaginal ultrasound. Comparison: None. FINDINGS: There is an IUD present. The tip of the IUD appears to extend into the anterior myometrium. The tip of the IUD is 1.2 cm from the most fundal aspect of the endometrium. The uterus measures 8 9.8 x 4.9 x 6.3 cm for a volume of 158 cc, contains a 1.5 x 1.3 x 0.9 cm left posterior intramural fibroid. The endometrium measures 3 mm in thickness. Transvaginal sonographic examination was performed for better evaluation of the adnexa. ?? Right ovary measures 4.8 x 4.1 x 4.3 cm for a volume of 44 cc, and contains a 3.6 x 2.7 x 8.8 cm complex cyst. Left ovary is not visualized No free fluid was demonstrated. Procedure Note Marion Márquez MD - 08/10/2024 US PELVIS NON OB COMPLETE W TRANSVAGINAL PELVIC ULTRASOUND History: Pain with IUD. Procedure: Real-time and color Doppler pelvic and transvaginal ultrasound. Comparison: None. FINDINGS: There is an IUD present. The tip of the IUD appears to extend into theanterior myometrium. The tip of the IUD is 1.2 cm from the most fundalaspect of the endometrium. The uterus measures 8 9.8 x 4.9 x 6.3 cm for a volume of 158 cc, containsa 1.5 x 1.3 x 0.9 cm left posterior intramural fibroid. The endometrium measures 3 mm in thickness. Transvaginal sonographic examination was performed for better evaluationof the adnexa. Right ovary measures 4.8 x 4.1 x 4.3 cm for a volume of 44 cc, andcontains a 3.6 x 2.7 x 8.8 cm complex cyst. Left ovary is not visualized No free fluid was demonstrated. IMPRESSION: IUD appears to be abnormally positioned with the tip extending into theanterior myometrium. 3.6 x 3.7 x 3.8 cm complex cyst of the right ovary. Fibroid uterus. -------- FINAL REPORT -------- Dictated By: Marion Márquez Dictated Date: 08/10/2024 18:15 ET Assigned Physician: Marion Márquez Reviewed and Electronically Signed By: Marion Márquez Signed Date: 08/10/2024 18:25 ET Workstation ID: [id number] Transcribed By: Self Edit Transcribed Date: 08/10/2024 18:15 ET us Staci Simmons CNM IMG US PROCEDURES Final Result documented in this encounter Visit Diagnoses Diagnosis Dysmenorrhea documented in this encounter Additional Health Concerns Assessment Noted Time PHQ-9 Depression Total Score: 0 08/03/19 25 8:13 AM EDT documented as of this encounter Care Teams Shoe Turner Relationship Specialty Start Date End Date Daysi Beckett MD [address] [place] [address] PCP - General 12/30/04 documented as of this encounter
--- OUTSIDE RECORDS SUMMARY | 2024-08-11 10:00 | XMS_ITS | Encounter Summary ---
Author Organization [facility] [place] [address] Care Team Providers Care Beveling Machine Operator Name Role Phone Daysi Beckett MD Primary Care Provider [phone] Reason for Referral * Consultation (Routine) - Closed Specialty Diagnoses / Procedures Referred By Darius t Referred To Contact Nephrology Diagnoses Arterial fibromuscular dysplasia ([facility]/HCC V24) Daysi Beckett MD [address] [place] [address] Phone: tel: fax: Shiva Monk MD [address] [place] [phone] Phone: tel: Referral ID Status Reason Start Date Expiration Date V isits Requested Visits Authorized [id number] Closed Specialty Services Required 08/08/2024 08/08/2025 12 12 Reason for Visit * Reason Onset Date Comments Referral 08/07/2024 Nephrology Insur ance Referral Encounter Details Date Type Department Care Team (Late st Contact Info) Description 08/07/2024 Telephone Adult Medicine [facility] [address] [place] [address] Daysi Beckett MD [address] [place] [address] Referral (Nephrology Insurance Referral) Social History Tobacco [...] your loved ones. For example, child care giver or elderly care for an older adult? [...] insurance does the patient have today? Payor: @[email or web address]/@[email or web address]@ Referrals cannot be processed if the insurance is not accurate. If the insurance listed above is NO BILLING INFORMATION FOUND FOR THIS ENCOUNTER then the patients correct insurance must be obtainedand registered in [facility] or their referral can not be processed. Name of person calling to request this referral? Fax - [facility] Referred To Provider (Include first and last name): Shiva Monk NPI (if known): [id number] Order/Specialty requested nephrology Chief Complaint (Note: This is not a body part or a procedure): I77.3 Has the patient seen provider for this problem/Dx before? N/A Referred To Provider Address: [address] [place] [address] [address] [place] Referred To Provider Referred To Provider [...] 8:45 AM EDT Office Visit Adult Medicine [address] [phone] Daysi Beckett MD [address] [place] [address] 10/04/2024 1:30 PM EDT Appointment Radiology Department - [address] [phone] Scheduled Referrals Name Type Priority Associated Diagnoses Orde r Schedule Ambulatory referral to Nephrology Outpatient Referral Routine Arterial fibromuscular dysplasia (CMS/HCC V24) Expected: 08/07/2024, Expires: 08/07/2025 documented as of this encounter Visit Diagnoses Diagnosis Arterial fibromuscular dysplasia (CMS/HCC V24)- Primary Other specified disorders of arteries and arterioles documented in this encounter Additional Health Concerns Assessment Noted Time PHQ-9 Depression Total Score: 0 08/03/19 25 8:13 AM EDT documented as of this encounter Care Teams Beveling Machine Operator Relationship Specialty Start Date End Date Daysi Beckett MD [address] [place] [id number] PCP - General 12/30/04 documented as of this encounter
--- OUTSIDE RECORDS SUMMARY | 2024-08-11 10:00 | XMS_ITS | Clinical Summary ---
Author Organization [facility] Address [address] [place] [address] Care Team Providers Care Field Insurance Sales Manager Name Role Phone Daysi Beckett MD Primary Care Provider Allergies Active Allergy Reactions Criticality Noted Date [...] age to complete this topic Care Teams Field Insurance Sales Manager Relationship Specialty Start Date End Date Daysi Beckett MD PCP - General Internal Medicine 12/23/21
--- OUTSIDE RECORDS SUMMARY | 2024-08-11 10:01 | XMS_ITS | Clinical Summary ---
Author Organization [address] [place] [address] Address [address] [place] [address] Phone Care Team Providers Care Carpet Finishing Supervisor Name Role Phone Daysi Beckett MD Primary Care Provider [phone] Allergies Active Allergy Reactions Criticality Noted Date [...] extr emity with both ulcer and inflammation ([facility] V24, [facility] V28) 06/29/2005 Overview (02/07/2024): Had laser procedure through vascular 01/05 Resolved Problems Problem Noted Date Diagnosed Date Resolved Date Other pulmonary embolism wit hout acute cor pulmonale ([facility] V24, [facility] V28) 01/31/202204/2024 Encounters Date Type Department Care Team Description 08/10/2024 4:49 PM EDT - 08/10/2024 11:59 PM EDT Hospital Encounter Radiology Department - [address] [phone] Dysmenorrhea Discharge Disposition: Home or Self Care 08/07/2024 Telephone Adult Medicine [address] [phone] Daysi Beckett MD Referral (Nephrology Insurance Referral) 08/02/2024 2:30 PM EDT Office Visit Obstetrics and Gynecology - [address] [phone] Staci Simmons CNM Encounter for annual routine gynecological examination (Primary Dx); Dysmenorrhea; Intrauterine device surveillance 06/22/2024 9:30 AM EST Office Visit Adult Medicine [address] [phone] Maggy Anderson PA Primary hypertension (Primary Dx); Refused influenza vaccine; Refused pneumococcal vaccine; Current severe episode of major depressive disorder without psychotic features, unspecified whether recurrent ([facility] V24, [facility] V28); Hyperlipidemia, unspecified hyperlipidemia type; Morbid obesity with BMI of 40.0-44.9, adult ([facility] V24, [facility] V28); Elevated random blood glucose level; Need for hepatitis C screening test; Opioid contract exists; Renal fibromuscular dysplasia ([facility] V24); Varicose veins of lower extremity with both inflammation and ulcer limited to breakdown of skin, unspecified laterality, unspecified ulceration site ([facility] V24, [facility] V28); Fibromyalgia; Chronic bilateral thoracic back pain; Anxiety 05/17/2024 3:30 PM EST Office Visit Adult Medicine [address] [phone] Zack Cavanaugh PA Acute upper respiratory infection, unspecified (Primary Dx) 05/17/2024 Nurse Triage Adult Medicine [address] [phone] Daysi Beckett MD Fever from Last 3 Months Immunizations Name Administration Dates Next Due Influenza Quadravalent, MDCK , 0.5ml, preservative free (Flucelvax) 6mo and older 02/20/2020 Influenza trivalent, with preservative (Fluzone; Afluria) 6mo and older 02/17/2016,02/28/2014,02/25/2012,2010,01/22/2010,01/11/2008,03/03/2005 [employer] SARS-CoV-2 COVID-19, mRNA, LNP-S, preservative free 04/20/2021,03/29/2021 [...] bowel syndrome) Anxiety Fibromyalgia Hypertension Fibromuscular dysplasia ([facility] V24) 12/2023 renal fibromuscular dysplasia Superficial phlebitis while preg nant, treated with lovenox Depression Morbid obesity with BMI of 4 0.0-44.9, adult ([facility] V24, [facility] V28) Varicose veins of both lower extremities had laser procedure through vascular, 01/05 Pneumonia due to COVID-19 virus 12/2020 Pulmonary emboli ([facility] V2 4, [facility] V28) 12/2020 due to covid Backache, unspecified 06/29/2005 DX:Backach e, unspecified Asymptomatic varicose veins 06/29/2005 DX:A symptomatic varicose veins Allergic rhinitis, cause unspecified 10/12/2006 DX:Allergic rhinitis, cause unspecified Depression 07/17/2010 DX:Depression Morbid obesity ([facility] V24, [facility] V28) 10/12/2006 DX:Morbid obesity ([facility]) Obesity 08/14/2010 DX:Obesity Superficial phlebitis 08/27/2011 DX:Superfi cial phlebitis Irritable bowel syndrome wit h diarrhea 11/11/2015 DX:Irritable bowel syndrome with diarrhea IUD (intrauterine device) in place 2017 DX:IUD (intrauterine device) in place; COMMENT: Mirena Fibromyalgia 11/07/2018 DX:Fibromyalgia Pneumonia due to COVID-19 virus 02/05/2021 DX:Pneumonia due to COVID-19 virus; COMMENT: 01/14 Pulmonary emboli ([facility] V2 4, [facility] V28) 02/05/2021 DX:Pulmonary emboli ([facility]); C OMMENT: 01/14 due to covid Fibromuscular dysplasia ([facility] V24) 01/13/2024 DX:Fibromuscular dysplasia ([facility]); COMMENT: 01/17 renal fibromuscular dysplasia Family History [...] for your loved ones. For example, child health associate or elderly care for an older adult? [...] 8:45 AM EDT Office Visit Adult Medicine [address] [phone] Daysi Beckett MD [address] [place] [phone] 10/04/2024 1:30 PM EDT Appointment Radiology Department - [address] [phone] Health Maintenance Due Date Last Done Comments Hepatitis B Vaccines (1 of 3 - 19+ 3-dose series) 1993 Colorectal Cancer Screening: FIT-DNA (Cologuard) 04/04/2022 HIV Screening 04/04/2022 COVID-19 Vaccine (3 - season) 2023 04/20/2021, 03/29/2021 Pneumococcal Vaccine: [...] TRANSVAGINAL Routine 08/10/2024 5:25 PM EDT Dysmenorrhea DRUG ABUSE SCREEN EXPANDED WITH REFLEX CONFIRMATION, [...] EDT Need for hepatitis C screening test [id number], RSV, FLU A AND B QUALITATIVE RT-PCR, LOCAL REFERENCE LAB Routine 05/17/2024 4:15 PM EST Acute upper respiratory infection, unspecified DEPRESSION SCREENING Routine 01/26/2024 DIAGNOSTIC MAMMOGRAPHY INCLUDING CAD BILATERAL Routine 09/23/2023 3:51 PM EDT Other abnormal and inconclusive findings on diagnostic imaging of breast HPV Routine 12/13/2020 from Last 3 Months or Most Recently Relevant to Health Maintenance Results * US Pelvis Non OB Complete [...] Signed Date: 08/10/2024 18:25 ET Workstation ID: [id number] Transcribed By: Self Edit Transcribed Date: 08/10/2024 [...] -------- FINAL REPORT -------- Dictated By: Marion áMrquez Dictated Date: 08/10/2024 18:15 ET Assigned Physician: Marion Márquez Reviewed and Electronically Signed By: Marion Márquez Signed Date: 08/10/2024 18:25 ET Workstation ID: [id number] Transcribed By: Self Edit Transcribed Date: 08/10/2024 18:15 ET us Staci Simmons CNM [facility] US PROCEDURES Final Result * Drug abuse screen expanded with reflex confirmation, urine (08/09/2024 9:01 AM EDT) Amphetamine Screen, Ur Negative Negative LAB CHEMISTRY METHOD 08/09/2024 11:09 AM [facility] Comment:Certain OTC medicati ons containing ephedrine, phenylephrine, pseudoephedrine and phenylpropanolamine can cause false positive results. Barbiturate Screen, Ur Negative Negative LAB CHEMISTRY METHOD 08/09/2024 11:09 AM [facility] Benzodiazepine Screen, Ur Negative Negative LAB CHEMISTRY METHOD 08/09/2024 11:09 AM [facility] Cocaine Screen, Ur Negative Negative LAB CHEMISTRY METHOD 08/09/2024 11:09 AM [facility] Opiate Screen, Ur Negative Negative LAB CHEMISTRY METHOD 08/09/2024 11:09 AM [facility] Cannabinoid (THC) Screen, Ur Negative Negative LAB CHEMISTRY METHOD 08/09/2024 11:09 AM [facility] Comment:Specimens from patie nts taking pantoprazole sodium (Protonix) have been shown to produce false positive results. Fentanyl, Ur Negative Negative LAB CHEMISTRY METHOD 08/09/2024 11:09 AM [facility] Oxycodone Screen, Ur Negative Negative LAB CHEMISTRY METHOD 08/09/2024 11:09 AM [facility] Urine Urine specimen obtained by clean catch procedure / Unknown Non-blood Collection / Unknown 08/09/2024 9:01 AM EDT 08/09/2024 9:01 AM [facility] - 08/09/2024 11:09 AM EDT Assay [...] ORDERABLES Final Re sult Performing Organization Address [facility] Co de Phone Number [facility] [address] [place] [address], [place] [phone] * Hepatitis C antibody (08/08/2024 9:46 AM EDT) [facility] Hepatitis C Antibody Negative Negative LAB CHEMISTRY METHOD 08/08/2024 2:01 PM EDT [facility] Blood Venous blood specimen / Unknown Venipuncture / Unknown 08/08/2024 9:46 AM EDT 08/08/2024 9:46 AM EDT us Maggy WATSON LAB BLOOD ORDERABLES Final Re sult Performing Organization Address [facility] de Phone Number [facility] [address] [place] [address], [place] [phone] * (ABNORMAL) Lipid panel with reflex to direct LDL (08/08/2024 9:46 AM EDT) [facility] Cholesterol 257(H) 0 - 200 mg/dL LAB CHEMISTRY METHOD 08/08/2024 12:55 PM EDT [facility] Triglycerides 235(H) 0 - 150 mg/dL LAB CHEMISTRY METHOD 08/08/2024 12:55 PM EDT [facility] HDL 57 >=40 mg/dL LAB CHEMISTRY METHOD 08/08/2024 12:55 PM EDT [facility] LDL Calculated 153(H) 0 - 100 mg/dL LAB CHEMISTRY METHOD 08/08/2024 12:55 PM EDT [facility] VLDL Cholesterol Young 47 mg/dL LAB CHEMISTRY METHOD 08/08/2024 12:55 PM EDT [facility] Non HDL Chol. (LDL+VLDL) 200(H) <145 mg/dL LAB CHEMISTRY METHOD 08/08/2024 12:55 PM EDT [facility] Chol/HDL Ratio 4.5(H) 0.0 - 4.4 LAB CHEMISTRY METHOD 08/08/2024 12:55 PM EDT [facility] Blood Venous blood specimen / Unknown Venipuncture / Unknown 08/08/2024 9:46 AM EDT 08/08/2024 9:46 AM EDT us Maggy WATSON LAB BLOOD ORDERABLES Final Re sult [facility] [address] [place] [address], * (ABNORMAL) CBC auto differential (08/08/2024 9:46 AM EDT) WBC 8.9 4.8 - 10.8 K/mcL LAB HEMETOLOGY METHOD 08/08/2024 12:29 PM T [facility] RBC 4.80 3.80 - 4.80 M/[facility] LAB HEMETOLOGY METHOD 08/08/2024 12:29 PM EDT [facility] Hemoglobin 13.2 11.5 - 16.0 g/dL LAB HEMETOLOGY METHOD 08/08/2024 12:29 PM [facility] Hematocrit 39.2 35.0 - 47.0 % LAB HEMETOLOGY METHOD 08/08/2024 12:29 PM T [facility] MCV 81.0 79.0 - 98.0 FL LAB HEMETOLOGY METHOD 08/08/2024 12:29 PM T [facility] MCH 27.3 27.0 - 32.0 pcg LAB HEMETOLOGY METHOD [facility]/08[facility]24 [facility] MCHC 33.7 32.0 - 37.0 g/dL LAB HEMETOLOGY METHOD 08/08/2024 12:29 PM [facility] RDW 14.6 11.0 - 15.0 % LAB HEMETOLOGY METHOD 08/08/2024 12:29 PM [facility] Platelets 301 130 - 400 K/mcL LAB HEMETOLOGY METHOD 08/08/2024 12:29 PM [facility] MPV 9.9 7.0 - 11.0 FL LAB HEMETOLOGY METHOD 08/08/2024 12:29 PM [facility] NRBC 0.0 <1.0 % LAB HEMETOLOGY METHOD 08/08/2024 12:29 PM [facility] NRBC Absolute 0.00 <0.10 K/mcL LAB HEMETOLOGY METHOD 08/08/2024 12:29 PM [facility] Neutrophils Relative 70.6 % LAB HEMETOLOGY METHOD 08/08/2024 12:29 PM [facility] Lymphocytes Relative 20.2 % LAB HEMETOLOGY METHOD 08/08/2024 12:29 PM [facility] Monocytes Relative 6.9 % LAB HEMETOLOGY METHOD 08/08/2024 12:29 PM [facility] Eosinophils Relative 1.1 % LAB HEMETOLOGY METHOD 08/08/2024 12:29 PM [facility] Basophils Relative 0.7 % LAB HEMETOLOGY METHOD 08/08/2024 12:29 PM [facility] Immature Granulocytes Relative 0.5 % LAB HEMETOLOGY METHOD 08/08/2024 12:29 PM [facility] Neutrophils Absolute 6.25 1.50 - 7.00 K/[facility] HEMETOLOGY METHOD 08/08/2024 12:29 PM EDT [facility] Lymphocytes Absolute 1.79 1.00 - 5.00 K/[facility] HEMETOLOGY METHOD 08/08/2024 12:29 PM EDT [facility] Monocytes Absolute 0.61 0.20 - 1.00 K/[facility] HEMETOLOGY METHOD 08/08/2024 12:29 PM EDT [facility] Eosinophils Absolute 0.10 0.00 - 0.50 K/[facility] HEMETOLOGY METHOD 08/08/2024 12:29 PM EDT [facility] Basophils Absolute 0.06 0.00 - 0.20 K/[facility] HEMETOLOGY METHOD 08/08/2024 12:29 PM EDT [facility] Immature Granulocytes Absolute 0.04(H) 0.00 - 0.03 K/[facility] HEMETOLOGY METHOD 08/08/2024 12:29 PM EDT [facility] Blood Venous blood specimen / Unknown Venipuncture / Unknown 08/08/2024 9:46 AM EDT 08/08/2024 9:46 AM EDT us Maggy WATSON LAB BLOOD ORDERABLES Final Re sult [facility] [address] [place] [address], * Hemoglobin A1c (08/08/2024 9:46 AM EDT) Hemoglobin A1C 5.5 <6.5 % LAB CHEMISTRY METHOD 08/08/2024 9:49 PM EDT [facility] Mean Bld Glu Estim. 111 mg/dL LAB CHEMISTRY METHOD 08/08/2024 9:49 PM EDT [facility] Blood Venous blood specimen / Unknown Venipuncture / Unknown 08/08/2024 9:46 AM EDT 08/08/2024 9:46 AM EDT us Maggy WATSON LAB BLOOD ORDERABLES Final Re sult [facility] [address] [place] [address], [place] [phone] * Comprehensive metabolic panel (08/08/2024 9:46 AM EDT) Sodium 139 133 - 145 mmol/L LAB CHEMISTRY METHOD 08/08/2024 12:55 PM [facility] Potassium 3.7 3.5 - 5.5 mmol/L LAB CHEMISTRY METHOD 08/08/2024 12:55 PM [facility] Chloride 107 96 - 110 mmol/L LAB CHEMISTRY METHOD 08/08/2024 12:55 PM [facility] CO2 24 21 - 32 mmol/L LAB CHEMISTRY METHOD 08/08/2024 12:55 PM [facility] Anion Gap 8 3 - 11 LAB CHEMISTRY METHOD 08/08/2024 12:55 PM [facility] Glucose 100 70 - 100 mg/dL LAB CHEMISTRY METHOD 08/08/2024 12:55 PM [facility] BUN 15 5 - 25 mg/dL LAB CHEMISTRY METHOD 08/08/2024 12:55 PM [facility] Creatinine 0.72 0.50 - 1.10 mg/dL LAB CHEMISTRY METHOD 08/08/2024 12:55 PM [facility] eGFR 102 >=60 mL/min/1. 73m2 LAB CHEMISTRY METHOD 08/08/2024 12:55 PM [facility] Comment:Calculation based on the??Chronic Kidney Disease Epidemiology Collaboration (CKD-EPI) equation refit??without adjustment for race. BUN/Creatinine Ratio 20.8 LAB CHEMISTRY METHOD 08/08/2024 12:55 PM [facility] Calcium 9.8 8.5 - 10.5 mg/dL LAB CHEMISTRY METHOD 08/08/2024 12:55 PM EDT [facility] AST (SGOT) 14 10 - 42 unit/L LAB CHEMISTRY METHOD 08/08/2024 12:55 PM T [facility] ALT (SGPT) 21 10 - 60 unit/L LAB CHEMISTRY METHOD 08/08/2024 12:55 PM EDT [facility] Alkaline Phosphatase 75 42 - 121 unit/L LAB CHEMISTRY METHOD 08/08/2024 12:55 PM EDT [facility] Total Protein 7.6 6.0 - 8.0 g/dL LAB CHEMISTRY METHOD 08/08/2024 12:55 PM EDT [facility] Albumin 3.8 3.2 - 5.0 g/dL LAB CHEMISTRY METHOD 08/08/2024 12:55 PM EDT [facility] Total Bilirubin 0.6 0.0 - 1.4 mg/dL LAB CHEMISTRY METHOD 08/08/2024 12:55 PM EDT [facility] Blood Venous blood specimen / Unknown Venipuncture / Unknown 08/08/2024 9:46 AM EDT 08/08/2024 9:46 AM EDT us Maggy WATSON LAB BLOOD ORDERABLES Final Re sult [facility] [address] [place] [address], * [id number], RSV, Influenza A and B qualitative RT-PCR (05/17/2024 4:15 PM EST) SARS COV-2 Not Detected Not Detected LAB MOLECULAR DIAGNOSTICS METHOD 05/17/2024 10:30 PM EST [facility] Comment: Disclaimer: The manner in which this information is used to guide patient care is the responsibility of the healthcare provider. Testing was performed using the [employer] m SARS-CoV-2 test. This test has [...] for Healthcare Providers can be found at: https://www.fda.gov/media/122695/download Fact sheet for Patients can be found at: https://www.fda.gov/media/341984/download Influenza A PCR Not Detected Not Detected LAB MOLECULAR DIAGNOSTICS METHOD 05/17/2024 10:30 PM EST [facility] Influenza B PCR Not Detected Not Detected LAB MOLECULAR DIAGNOSTICS METHOD 05/17/2024 10:[address] [facility] RSV PCR Not Detected Not Detected LAB MOLECULAR DIAGNOSTICS METHOD 05/17/2024 10:30 PM EST [facility] Swab Nasopharyngeal structure / Unknown Non-blood Collection / Unknown 05/17/2024 4:15 PM EST 05/17/2024 4:15 PM EST Zack WATSON LAB MICROBIOLOGY - GENER AL ORDERABLES Final Result [facility] [address] [place] [address], * Depression Screening (01/26/2024) Pathologist [facility] Depression Screening Abstracted Historical Provider MD HEALTH MAINTENANCE Final Result * DIAGNOSTIC MAMMOGRAPHY [...] [place] - [place] Care Teams Carpet Finishing Supervisor Relationship Specialty Start Date End Date Daysi Beckett MD [address] [place] [address] PCP - General 12/30/04
== END 2024-08-11 10:05 | disposition home or self-care (01) ==
LOC: HO.HKA 09:30
PROVIDERS: PCP Internal Medicine; Visit Provider Internal Medicine Nephrology
DX: I15.0 Renovascular hypertension (principal); E87.6 Hypokalemia
CPT/HCPCS: 99214

== ENCOUNTER 2024-11-16 11:01 | Outpatient (REF) | payer BC, MEDICAID, SELFPAY ==
--- OUTSIDE RECORDS SUMMARY | 2024-11-16 11:51 | XMS_ITS | Clinical Summary ---
Author Organization [facility] Address [address] [place] [address] Care Team Providers Care Slash Trimmer Name Role Phone Daysi Beckett MD Primary Care Provider [phone] Allergies Active Allergy Reactions Criticality Noted Date [...] 73 01/30/2022 11:24 AM EDT Temperature 36.9 C (98.5 F) 01/30/2022 11:24 AM EDT Respiratory Rate - - Oxygen Saturation 99% [...] COVID-19 Vaccine ( season) 2023 04/20/2021, 03/29/2021 Breast Cancer Screening (Mammogram) 01/09/2024 Shingrix-Zoster Vaccine (1 of 2) 01/09/2024 Influenza Vaccine (#1) 2024 0, 02/17/2016, 02/28/2014, Additional history exists Pneumococcal Vaccine Aged Out No long er eligible based on patient's age to complete this topic RSV Ped < 20 months Aged Out No longe r eligible based on patient's age to complete this topic Care Teams Slash Trimmer Relationship Specialty Start Date End Date Daysi Beckett MD PCP - General Internal Medicine 12/23/21
--- OUTSIDE RECORDS SUMMARY | 2024-11-16 11:51 | XMS_ITS | Clinical Summary ---
Author Organization [address] Address [address] [place] [phone] Phone Care Team Providers Care [employer] Co[employer] Supervisor Name Role Phone Daysi Beckett MD Primary Care Provider [phone] Allergies Active Allergy Reactions Criticality Noted Date Comments Naproxen 12/23/2007 Gi distress and diarrhea Sulfamethoxazole-Trim ethoprim Nausea And Vomiting Medium 01/03/2015 Medications multivitamin (MULTIPLE VITAMINS ORAL) Take 1 tablet by mouth daily. Active UNABLE TO FIND Take 2 Each by mouth daily. Active tiZANidine (ZANAFLEX) 2 mg tablet Take 1 tablet (2 mg total) by mouth 2 (two) times a week. 30 tablet 08/03/2024 Active HYDROcodone-acet aminophen (NORCO) 5-325 mg per tablet Take 1 tablet by mouth 1 (one) time each day if needed for severe pain. Take 1 Tablet by mouth daily as needed for Pain. Max Daily Amount: 1 tablet 30 tablet 08/02/2024 Active hydroCHLOROthiaz zaria 12.5 mg tablet Take 1 tablet (12.5 mg total) by mouth 1 (one) time each day. 90 tablet 1 09/20/2024 Active carvediloL (COREG) 6.25 mg tablet Take 1 tablet (6.25 mg total) by mouth 2 (two) times a day with meals. 180 tablet 1 09/20/2024 Active busPIRone (BUSPAR) 15 mg tablet Take 1 tablet (15 mg total) by mouth 2 (two) times a day. 180 tablet 1 09/20/2024 Active sertraline (ZOLOFT) 100 mg tablet Take 1 tablet (100 mg total) by mouth 1 (one) time each day. 90 tablet 1 09/20/2024 Active Active Problems Problem Noted Date Diagnosed Date IUD (intrauterine device) in place 09/28/2024 Complex cyst of right ovary 08/17/2024 Assessment & Plan (08/17/2024 11:13 AM EDT): I recommended she schedule follow up US 6 weeks from last. She agreed. Hyperlipidemia LDL goal <100 08/09/2024 Renal fibromuscular dysplasia (CMS/HCC V24) 12/25 Overview (06/24/2024): 12/2023, (Dr. Oseguera) Hypertension 09/16/2021 Pneumonia due to COVID-19 virus 02/05/2021 Overview (02/07/2024): 01/14 History of pulmonary embolus (PE) 02/05/2021 Overview (02/07/2024): 01/14 due to covid Fibromyalgia 11/07/2018 Anxiety 01/27/2018 Overview (09/08/2024): IBS (irritable bowel syndrome) 11/11/2015 Thoracic back pain 08/24/2013 Superficial phlebitis 08/27/2011 Overview (02/07/2024): While ; treated with lovenox Depression 07/17/2010 Allergic rhinitis 10/12/2006 Backache 06/29/2005 Overview (02/07/2024): MRI mild DJD T3-T4, T4-T5, has seen physiatry Varicose veins of lower extr emity with both ulcer and inflammation (CMS/HCC V24, CMS/HCC V28) 06/29/2005 Overview (02/07/2024): Had laser procedure through vascular 9/12 Resolved Problems Problem Noted Date Diagnosed Date Resolved Date Other pulmonary embolism wit hout acute cor pulmonale ([facility] V24, [facility] V28) 01/31/202204/2024 Encounters Date Type Department Care Team Description 10/13/2024 9:16 AM EDT - 10/13/2024 11:59 PM EDT Hospital Encounter Radiology [facility] - [address] [phone] Other abnormal and inconclusive findings on diagnostic imaging of breast Discharge Disposition: Home or Self Care 09/29/2024 10:26 AM EDT - 09/29/2024 11:59 PM EDT Hospital Encounter Radiology Department - [address] [phone] Complex cyst of right ovary Discharge Disposition: Home or Self Care 09/28/2024 10:30 AM EDT Office Visit Obstetrics and Gynecology - [address] [phone] Venessa Luke MD IUD (intrauterine device) in place (Primary Dx) 09/20/2024 8:45 AM EDT Office Visit Adult Medicine [address] [phone] Daysi Beckett MD Primary hypertension (Primary Dx); Screening for colon cancer; Hyperlipidemia LDL goal <100; Anxiety; Fibromyalgia; Chronic bilateral thoracic back pain 08/17/2024 10:45 AM EDT Office Visit Obstetrics and Gynecology [address] [phone] Venessa Luke MD Intrauterine device (IUD) migration, initial encounter (Primary Dx); test negative; Complex cyst of right ovary; Encounter for IUD removal and reinsertion 08/17/2024 Telephone Obstetrics and Gynecology - [address] [phone] Chasidy Kemp RN from Last 3 Months Immunizations Name Administration Dates Next Due Influenza Quadravalent, MDCK , 0.5ml, preservative free (Flucelvax) 6mo and older 02/20/2020 Influenza trivalent, with preservative (Fluzone; Afluria) 6mo and older 02/17/2016,02/28/2014,02/25/2012,2010,01/22/2010,01/11/2008,03/03/2005 Pfizer SARS-CoV-2 COVID-19, mRNA, LNP-S, preservative free 04/20/2021,03/29/2021 [...] bowel syndrome) Anxiety Fibromyalgia Hypertension Fibromuscular dysplasia ([facility] V24) 12/2023 renal fibromuscular dysplasia Superficial phlebitis while preg nant, treated with lovenox Depression Morbid obesity with BMI of 4 0.0-44.9, adult ([facility] V24, [facility] V28) Varicose veins of both lower extremities had laser procedure through vascular, 01/05 Pneumonia due to COVID-19 virus 12/2020 Morbid obesity ([facility] V24, [facility] V28) 10/12/2006 DX:Morbid obesity ([facility]) Fibromyalgia 11/07/2018 DX:Fibromyalgia Family History Medical History Relation Name Comments [...] for your loved ones. For example, child support specialist or elderly care for an older adult? [...] Livin g Live Births 5 4 4 0 1 0 1 0 0 4 4 Date Outcome GA Total Labor Labor/2nd/3rd Weight Sex Type Anes PTL Irais A1 A5 Name Clin SAB Comments:System Genera blake. Please review and update details. Term Vag-S pont Living Term Vag-S pont Living Term Vag-S pont Living Term Vag-S pont Living Last Filed Vital Signs Vital Sign Reading Time Taken Comments Blood Pressure 137/82 09/28/2024 10:37 AM EDT Pulse 79 09/28/2024 10:37 AM EDT Temperature 36.1 C (97 F) 09/20/2024 8:52 AM EDT Respiratory Rate 16 09/20/2024 8:52 AM EDT Oxygen Saturation 96% 09/20/2024 8:52 AM EDT Inhaled Oxygen Concentration - - Weight 103 kg (227 lb 9.6 oz) 09/28/2024 10:37 A M EDT Height 157.5 cm (5' 2 ) 09/20/2024 8:52 AM EDT Body Mass Index 41.63 09/20/2024 8:52 AM EDT Plan of Treatment Upcoming Encounters Date Type Department Care Team (Late st Contact Info) Description 12/21/2024 10:00 AM EDT Office Visit Adult Medicine [facility] [address] [place] [phone] Maggy Anderson PA [address] [place] [address] Health Maintenance Due Date Last Done Comments Hepatitis B Vaccines (1 of 3 - 19+ 3-dose series) 1993 Colorectal Cancer Screening: FIT-DNA (Cologuard) 04/04/2022 HIV Screening 04/04/2022 COVID-19 Vaccine ( - 2023- season) 2023 04/20/2021, 03/29/2021 Pneumococcal Vaccine: 50+ Years (1 of 1 - PCV) 01/09/2024 Influenza Vaccine (#1) 2024 , 02/17/2016, 02/28/2014, Additional history exists Social Influencers of Health Screening 06/22/2025 06/22/2024 Hypertension/CHF/CAD Annual BMP Blood Test 08/08/2025 08/08/2024, 06/18/2023 Breast Cancer Screening 09/22/2025 09/23/19 24, 09/23/2023, 03/24/2023, Additional history exists Cervical Cancer Screening: HPV 12/13/2025 12/13/2020 Cholesterol Screening (Lipid Panel) 08/08/2029 08/08/2024, 06/18/2023 DTaP,Tdap,and Td Vaccines (5 - Td or Tdap) 06/18/2032 06/18/2022, 06/18/2022, 07/31/2011, Additional history exists Medicare Annual Wellness Visit 2039 Postponed from 04/04/2022 (Not clinically appropriate to address at this time) Hepatitis C Screening Completed 08/08/2024 Depression Screening Completed 09/28/2024, 01/26/20 HIB Vaccines Aged Out No longer eligi [...] Procedure Name Priority Date/Time Associated Diagnosis Comments MG MAMMO DIAGNOSTIC ADDL VIEWS BILAT Routine 10/13/2024 9:36 AM EDT Other abnormal and inconclusive findings on diagnostic imaging of breast US PELVIS NON OB LIMITED OR FOLLOWUP Routine 09/29/2024 11:29 AM EDT Complex cyst of right ovary POC , URINE DIAGNOSTIC Routine 08/17/2024 11:10 AM EDT test negative HEPATITIS C ANTIBODY Routine 08/08/2024 9:46 AM EDT Need for hepatitis C screening test COMPREHENSIVE METABOLIC PANEL Routine 08/08/2024 9:46 AM [...] 9:46 AM EDT Hyperlipidemia, unspecified hyperlipidemia type DEPRESSION SCREENING Routine 01/26/2024 DIAGNOSTIC MAMMOGRAPHY INCLUDING CAD BILATERAL Routine 09/23/2023 3:51 PM EDT Other abnormal and inconclusive findings on diagnostic imaging of breast HM HPV Routine 12/13/2020 from Last 3 Months or Most Recently Relevant to Health Maintenance Results * MG Mammo Diagnostic Addl Views bilat (10/13/2024 9:36 AM EDT) Anatomical Region Laterality Modality Breast Bilateral Mammography 10/13/2024 9:40 AM EDT Impressions 10/13/2024 9:46 AM EDT RIGHT BREAST: Negative, no evidence of malignancy. Normal interval follow-up is recommended in 12 months. LEFT BREAST: Benign, no evidence of malignancy. Patient may return to routine screening mammogram in 12 months. Findings and recommendations were conveyed to the patient via senior nuclear medicine technologist. BREAST DENSITY: B - There are scattered areas of fibroglandular density. BI-RADS CATEGORY: 2 - BENIGN RECOMMENDATION: Mammography: Screening bilateral mammogram is recommended in 1 year. Mammo Location: [facility], [address] [place] [address], [id number], . -------- FINAL REPORT -------- Dictated By: Yonathan Valdez Dictated Date: 10/13/2024 09:40 ET Assigned Physician: Yonathan Valdez Reviewed and Electronically Signed By: Yonathan Valdez Signed Date: 10/13/2024 09:46 ET Workstation ID: [id number] Transcribed By: Self Edit Transcribed Date: 10/13/2024 09:40 ET Narrative 10/13/2024 9:46 AM EDT HISTORY: This is a 12-month follow-up of calcifications in the upper-outer quadrant of the left breast. These calcifications have been followed up since August 2021. STUDY: Bilateral diagnostic mammography with tomosynthesis and CAD TECHNIQUE: Bilateral digital diagnostic mammography is obtained and read in conjunction with computer-aided detection. Tomosynthesis as well as 2-D C view imaging were obtained. Spot magnified compression views of the left breast calcifications were also obtained. COMPARISON: Comparison made to multiple prior, most recent September 23, 2023, and most remote July 08, 2018. RIGHT BREAST: No significant masses, suspicious calcifications or other abnormalities are seen. LEFT BREAST: Previously described faint loosely grouped calcifications in the upper-outer quadrant posterior depth are not significant changed from previous spot magnified compression views from August 2021; at this point they can be considered a benign finding and no further dedicated imaging follow-up needed. No significant masses, suspicious calcifications or other abnormalities are seen. Procedure Note Yonathan Valdez MD - 10/13/2024 HISTORY: This is a 12-month follow-up of calcifications in the upper- outerquadrant of the left breast. These calcifications have been followed upsince August 2021. STUDY: Bilateral diagnostic mammography with tomosynthesis and CAD TECHNIQUE: Bilateral digital diagnostic mammography is obtained and readin conjunction with computer-aided detection. Tomosynthesis as well as2-D C view imaging were obtained. Spot magnified compression views of theleft breast calcifications were also obtained. COMPARISON: Comparison made to multiple prior, most recent September 23, 2023,and most remote July 08, 2018. RIGHT BREAST: No significant masses, suspicious calcifications or otherabnormalities are seen. LEFT BREAST: Previously described faint loosely grouped calcifications inthe upper-outer quadrant posterior depth are not significant changed fromprevious spot magnified compression views from August 2021; at this pointthey can be considered a benign finding and no further dedicated imagingfollow-up needed. No significant masses, suspicious calcifications orother abnormalities are seen. IMPRESSION: RIGHT BREAST: Negative, no evidence of malignancy. Normal intervalfollow-up is recommended in 12 months. LEFT BREAST: Benign, no evidence of malignancy. Patient may return toroutine screening mammogram in 12 months. Findings and recommendations were conveyed to the patient via mammographytechnologist. BREAST DENSITY: B - There are scattered areas of fibroglandular density. BI-RADS CATEGORY: 2 - BENIGN RECOMMENDATION: Mammography: Screening bilateral mammogram is recommended in 1 year. Mammo Location: [facility], [address] [place] [address], [id number], . -------- FINAL REPORT -------- Dictated By: Yonathan Valdez Dictated Date: 10/13/2024 09:40 ET Assigned Physician: Yonathan Valdez Reviewed and Electronically Signed By: Yonathan Valdez Signed Date: 10/13/2024 09:46 ET Workstation ID: [id number] Transcribed By: Self Edit Transcribed Date: 10/13/2024 09:40 ET us Daysi Beckett MD IMG BI PROCEDURES Final Result * US Pelvis Non OB Limited or Followup (09/29/2024 11:29 AM EDT) Anatomical Region Laterality Modality Body, Pelvis Ultrasound 09/29/2024 11:4 2 AM EDT Impressions 09/29/2024 11:49 AM EDT IUD is slightly low with tip approximately 9 mm on the most fundal aspect of the endometrium. 2.3 x 2.2 x 2.4 cm right ovarian cyst, and this has decreased in size as the previous study where it measured 3.6 x 3.7 x 3.8 cm. Small uterine fibroid identified on the previous study is not identified with certainty on today's exam. -------- FINAL REPORT -------- Dictated By: Marion Márquez Dictated Date: 09/29/2024 11:42 ET Assigned Physician: Marion Márquez Reviewed and Electronically Signed By: Marion Márquez Signed Date: 09/29/2024 11:49 ET Workstation ID: [id number] Transcribed By: Self Edit Transcribed Date: 09/29/2024 11:42 ET Narrative 09/29/2024 11:49 AM EDT PELVIC ULTRASOUND History: Follow-up right ovarian cyst cyst. Procedure: Real-time and color Doppler pelvic and transvaginal ultrasound. Color flow and Doppler spectral waveform analysis was also performed. Comparison: Pelvic ultrasound 08/10/2024. FINDINGS: There is an IUD present. The tip of the IUD is 9 mm from the most fundal aspect of the endometrium. The uterus measures 9.3 x 5.1 x 5.9 cm for a volume of 146.5 cc. Endometrial stripe measures 5 mm. There are no uterine masses. Transvaginal sonographic examination was performed for better evaluation of the adnexa. Normal arterial and venous waveforms on spectral Doppler analysis of the right ovary. Waveforms were unable to be documented in the left ovary. Right ovary measures 3.0 x 2.9 x 2.9 cm for a volume of 13.2 cc, contains a 0.3 x 2.2 x 2.4 cm septated cyst with some internal echoes, previously 3.6 x 3.7 x 3.8 cm. Left ovary measures 2.6 x 1.9 x 1.7 cm for a volume of 4.7 cc.. No free fluid was demonstrated. Procedure Note Marion Márquez MD - 09/29/2024 PELVIC ULTRASOUND History: Follow-up right ovarian cyst cyst. Procedure: Real-time and color Doppler pelvic and transvaginal ultrasound.Color flow and Doppler spectral waveform analysis was also performed. Comparison: Pelvic ultrasound 08/10/2024. FINDINGS: There is an IUD present. The tip of the IUD is 9 mm from the most fundalaspect of the endometrium. The uterus measures 9.3 x 5.1 x 5.9 cm for a volume of 146.5 cc. Endometrial stripe measures 5 mm. There are no uterine masses. Transvaginal sonographic examination was performed for better evaluationof the adnexa. Normal arterial and venous waveforms on spectral Doppler analysis of theright ovary. Waveforms were unable to be documented in the left ovary. Right ovary measures 3.0 x 2.9 x 2.9 cm for a volume of 13.2 cc, containsa 0.3 x 2.2 x 2.4 cm septated cyst with some internal echoes, previously3.6 x 3.7 x 3.8 cm. Left ovary measures 2.6 x 1.9 x 1.7 cm for a volume of 4.7 cc.. No free fluid was demonstrated. IMPRESSION: IUD is slightly low with tip approximately 9 mm on the most fundal aspectof the endometrium. 2.3 x 2.2 x 2.4 cm right ovarian cyst, and this has decreased in size asthe previous study where it measured 3.6 x 3.7 x 3.8 cm. Small uterine fibroid identified on the previous study is not identifiedwith certainty on today's exam. -------- FINAL REPORT -------- Dictated By: Marion Márquez Dictated Date: 09/29/2024 11:42 ET Assigned Physician: Marion Márquez Reviewed and Electronically Signed By: Marion Márquez Signed Date: 09/29/2024 11:49 ET Workstation ID: [id number] Transcribed By: Self Edit Transcribed Date: 09/29/2024 11:42 ET us Venessa Luke MD IMG US PROCEDURES Final Res ult * POC , urine manually resulted (08/17/2024 11:10 AM EDT) HCG, Ur POC Negative Negative POC hCG Int QC Pass? Yes Yes Urine Urine specimen obtained by clean catch procedure / Unknown 08/17/2024 11:10 AM EDT Venessa Luke MD POINT OF CARE TEST ENTER/ED IT ORDERABLES Final Result * Hepatitis C antibody (08/08/2024 9:46 AM EDT) [facility] Hepatitis C Antibody Negative Negative LAB CHEMISTRY METHOD 08/08/2024 2:01 PM EDT [facility] Blood Venous blood specimen / Unknown Venipuncture / Unknown 08/08/2024 9:46 AM EDT 08/08/2024 9:46 AM EDT us Maggy WATSON LAB BLOOD ORDERABLES Final Re sult [facility] [address] [place] [address], [place] [phone] * (ABNORMAL) Lipid panel with reflex to direct LDL (08/08/2024 9:46 AM EDT) [facility] Cholesterol 257(H) 0 - 200 mg/dL LAB CHEMISTRY METHOD 08/08/2024 12:55 PM EDT [facility] Triglycerides 235(H) 0 - 150 mg/dL LAB CHEMISTRY METHOD 08/08/2024 12:55 PM [facility] HDL 57 >=40 mg/dL LAB CHEMISTRY METHOD 08/08/2024 12:55 PM EDT [facility] LDL Calculated 153(H) 0 - 100 mg/dL LAB CHEMISTRY METHOD 08/08/2024 12:55 PM T [facility] VLDL Cholesterol Young 47 mg/dL LAB CHEMISTRY METHOD 08/08/2024 12:55 PM EDT [facility] Non HDL Chol. (LDL+VLDL) 200(H) <145 mg/dL LAB CHEMISTRY METHOD 08/08/2024 12:55 PM [facility] Chol/HDL Ratio 4.5(H) 0.0 - 4.4 LAB CHEMISTRY METHOD 08/08/2024 12:55 PM [facility] Blood Venous blood specimen / Unknown Venipuncture / Unknown 08/08/2024 9:46 AM EDT 08/08/2024 9:46 AM EDT us Maggy WATSON LAB BLOOD ORDERABLES Final Re sult [facility] [address] [place] [address], * Comprehensive metabolic panel (08/08/2024 9:46 AM EDT) Sodium 139 133 - 145 mmol/L LAB CHEMISTRY METHOD 08/08/2024 12:55 PM [facility] Potassium 3.7 3.5 - 5.5 mmol/L LAB CHEMISTRY METHOD 08/08/2024 12:55 PM [facility] Chloride 107 96 - 110 mmol/L LAB CHEMISTRY METHOD 08/08/2024 12:55 PM [facility] CO2 24 21 - 32 mmol/L LAB CHEMISTRY METHOD 08/08/2024 12:55 PM [facility] Anion Gap 8 3 - 11 LAB CHEMISTRY METHOD 08/08/2024 12:55 PM [facility] Glucose 100 70 - 100 mg/dL LAB CHEMISTRY METHOD 08/08/2024 12:55 PM [facility] BUN 15 5 - 25 mg/dL LAB CHEMISTRY METHOD 08/08/2024 12:55 PM [facility] Creatinine 0.72 0.50 - 1.10 mg/dL LAB CHEMISTRY METHOD 08/08/2024 12:55 PM [facility] eGFR 102 >=60 mL/min/1. 73m2 LAB CHEMISTRY METHOD 08/08/2024 12:55 PM [facility] Comment:Calculation based on the Chronic Kidney Disease Epidemiology Collaboration (CKD-EPI) equation refit without adjustment for race. BUN/Creatinine Ratio 20.8 LAB CHEMISTRY METHOD 08/08/2024 12:55 PM EDT [facility] Calcium 9.8 8.5 - 10.5 mg/dL LAB CHEMISTRY METHOD 08/08/2024 12:55 PM [facility] AST (SGOT) 14 10 - 42 unit/L LAB CHEMISTRY METHOD 08/08/2024 12:55 PM [facility] ALT (SGPT) 21 10 - 60 unit/L LAB CHEMISTRY METHOD 08/08/2024 12:55 PM [facility] Alkaline Phosphatase 75 42 - 121 unit/L LAB CHEMISTRY METHOD 08/08/2024 12:55 PM [facility] Total Protein 7.6 6.0 - 8.0 g/dL LAB CHEMISTRY METHOD 08/08/2024 12:55 PM [facility] Albumin 3.8 3.2 - 5.0 g/dL LAB CHEMISTRY METHOD 08/08/2024 12:55 PM [facility] Total Bilirubin 0.6 0.0 - 1.4 mg/dL LAB CHEMISTRY METHOD 08/08/2024 12:55 PM [facility] Blood Venous blood specimen / Unknown Venipuncture / Unknown 08/08/2024 9:46 AM EDT 08/08/2024 9:46 AM EDT Maggy WATSON LAB BLOOD ORDERABLES Final Re sult [facility] [address] [place] [address], * Depression Screening (01/26/2024) Depression Screening Abstracted [...] in conjunction with computer aided detection. Tomosynthesis as well as 2D C-View imaging were obtained. Spot magnified compression views of the left breast [...] 12 cm from the nipple still persists. No suspicious masses, new calcifications or other abnormalities are seen. IMPRESSION: Impression: Right breast: Negative, no specific mammographic evidence of malignancy. Normal interval follow-up is recommended in 12 months. Left breast: Loosely grouped faint calcifications in the upper outer quadrant posterior depth. Probably benign. A 12-month follow-up is recommended as bilateral diagnostic [...] [place] - [place] Care Teams Fabric Coating Supervisor Relationship Specialty Start Date End Date Daysi Beckett MD [address] [place] [address] PCP - General 12/30/04
--- OUTSIDE RECORDS SUMMARY | 2024-11-16 11:51 | XMS_ITS ---
Author Name [facility] Organization Unknown Care Team Organization Name Specialty Phone Email Start Date End Da te [facility] Daysi Beckett Primary Care 03/03/2022 4
--- OUTSIDE RECORDS SUMMARY | 2024-11-16 11:51 | XMS_ITS | Data Portability ---
Author Organization [facility] [address] Address [address] [place] [address] Care Team Providers Care Ticket Chopper Assembler Name Role Phone JUAN CORRALES Primary Care Provider [phone] Assessment No assessment recorded. Plan of Treatment Reminders Order Date Submit Date Provider Last Modified By Organization Details Last Modified Time Details Appointments None record ed. Lab None record ed. Referral None record ed. Procedures None record ed. Surgeries None record ed. Imaging XR, ankle, 3 or more view 023 11/21/19 [facility], [address] [place], [address], 13:36:26 Medication Orders None record ed. Patient TargetsNo targets recorded. Patient Instructions Encounter Date Encounter Id Patient Instructions Last Modified By Organization Details Last Modified Time 11/20/2022 [id number] ice or heat to area whichever feels [...] ation record ed. [facility] [address] [place], [address], 11/20/2022 14:39:13 Result Notes None recorded. Problems Name Problem SNOMED Code Status Onset Date Resolution Date Notes Provider Name and Address Organization Details Recorded Time Hypertensive disorder 59568922 Active 2022 Dang garcia, PA - [facility] 3 12:23:07 Anxiety 56173204 Active 2022 Dang garcia, PA - [facility] 3 12:23:15 Depressive disorder 94496089 Active 2022 Dang garcia, PA - [facility] 3 12:23:21 Problem Notes None recorded. Procedures Surgical History Date Name Laterality Status Provider Name and Address Organization Details Recorded Time excision of varicose vein completed Dang Mills PA - [facility] 11/20/2022 12:23:38 Imaging Results None recorded. Procedure Notes None recorded. Medical Equipment None Reported. Allergies Allergen ID Allergen Name Allergen Category Reaction Reaction Severity Criticality Documentation Date Start Date Code Code System Note Provider Name and Address Organization Details Recorded Time 594911 Bactrim medicatio n Not available Not available Not available 11/20/2022 19042 9 RxNorm [facility], [facility] - [facility] [...] Heart rate Respiratory rate Body temperature Systolic And Diastolic Provider Name and Address Organization Details Last Updated DateTime 3 157.48 cm 42.1 kg/m2 201554. 25 g 7 96 % 96 % 79 /min 18 /min 98.4 [degF] 132/80 mm[Hg] Dang WATSON [facility] 12:27:40 Social History Question Answer Notes LastModified by [email or web address] Details LastModified Time Tobacco Smoking Status Never Smoker [facility] Howell [facility] 11/20/2022 12:24:33 Have You Recently Traveled Abroad? No Information not available 11/20/2022 Sex: Unknown Functional Status Question Answer Note LastModified by [email or web address] Details LastModified Time How many times per week do you consume alcohol? Less than 1 time per week Information not available 11/20/2022 Do you use any illicit or recreational drugs? No Information not available 11/20/2022 Do you or have you ever used any other forms of tobacco or nicotine? No Information not available 11/20/2022 What is your level of alcohol consumption? Occasional Information not available 11/20/2022 Mental Status None recorded. Family History Relationship [...] SNOMED-CT Code Diagnosis ICD10 Code Diagnosis Note [id number] [address] [place] [address] 10/01/2015 18:11:12 10/01/2015 20:00:46 [id number] [address] [place] [address] 08/08/2015 18:44:26 08/08/2015 20:03:09 [id number] [address] [place] [address] 06/13/2021 15:08:17 06/13/2021 17:44:53 [id number] [address] [place] [address] 05/21/2019 12:17:48 05/21/2019 13:34:24 [id number] Melvin Coles NP [address] [place] [address] 11/20/2022 12:04:29 11/20/2022 13:14:09 Pain of right ankle joint 6641771488 6647491 M25.571 Health Concerns Section Related Observation LastModified by Organization Detai ls LastModified Time None Recorded Concern Status LastModified by Organization Details LastModified Time None Recorded Advance Directives Directive None Recorded Payers Insurance Date Sequence Insurance Name Policy Number Policy Jacobs Covered Member ID Jacobs Member ID Guarantor Name 12/03/2022 1 [facility] MEDICARE H[place] BLUE (MEDICARE REPLACEMENT HMO) [id number] Elizabeth Marc [id number] Elizabeth Marc Notes Date Note Type Note Provider Name and Address Organization Details Recorded Time 11/21/19 23 text/htm l Foot/Ankle UCReported by PatientHPIFor associated symptoms, patient reportsswellingandrednessbut reportsno weakness,no numbness,no tingling,no warmth, andno ecchymosis. For source of patient information, patient reportsinformation obtained from patient,patient arrived at urgent care ambulatory, andlearning styles: auditory. For location, patient reportsrightandankle(happen 5 days ago while walking on wet floor and slipped but prevented the fall. have varicose veins also.). For problem, patient reportsinjuryandswelling. For severity, patient reportsmoderate. For duration, patient reports5 days. For context, patient reportstwisting. For aggravating factors, patient reportsstandingandwalking. For alleviating factors, patient reportselevation,ice,limited weight bearing, andrest. For assistive devices, patient reportsbraceandace bandage. For previous injury, patient reportsno prior injury to affected body part. For previous treatment, patient reportsnone. For prior imaging, patient reportsnone. Melvin Coles NP [address] [place], [address], [place] - [facility] 11/20/2022 13:13:47 OBGyn Episode No OBEpisode recorded.
[2024-11-16 13:47] LABS: Anion Gap 11 (12-20); Blood Urea Nitrogen 14 mg/dL (9-16); Carbon Dioxide 24 mmol/L (22-29); Chloride 107 mmol/L (96-108); Estimated Glomerular Filt Rate > 60; Potassium 4.0 mmol/L (3.3-5.1); Sodium 138 mmol/L (135-145)
== END 2024-11-16 11:02 | disposition home or self-care (01) ==
LOC: HO.HMGCLDS 11:01
PROVIDERS: PCP Internal Medicine; Visit Provider Internal Medicine Nephrology
DX: I15.0 Renovascular hypertension (principal)
CPT/HCPCS: 36415; 80051; 82565; 84520

== ENCOUNTER 2025-01-05 11:30 | Outpatient (AMB) | payer BC, MEDICAID, SELFPAY ==
--- NOTE | 2025-01-05 11:37 | HO.NEPHOV ---
Vital Signs 01/05/25 11:39 Height 5 ft 2 in Weight 228 lb 2 oz BMI 41.7 BP 148/90 H Blood Pressure Location Lt brachial Position Sitting Pulse 75 Pulse Source Pulse Oximeter Pulse Oximetry (%) 97 Oxygen Delivery Method Room Air Intake Visit Reasons: High BP/Headache Corrections Sergeant Required: No Accompanied by: Spouse Allergies sulfamethoxazole (From BACTRIM) Allergy (Unknown, Verified 01/05/25 11:39) VOMITING trimethoprim (From BACTRIM) Allergy (Unknown, Verified 01/05/25 11:39) VOMITING naproxen (NAPROXEN) Adverse Reaction (Intermediate, Verified 01/05/25 11:39) NAUSEA & VOMITING HPI Comments Details: 49-year-old female who has H/O hypertension currently having BP lability. Her PCP has increased her HCTZ to 25 mg daily but her BP continues to be labile. She did not have any vision changes, nausea, vomiting, shortness of breath, palpitations, syncope, chest pain but has headaches. She has no H/O drug use. Head CT done in the past was negative for any acute intracranial abnormality. Chest x-ray unremarkable. EKG shows NSR, rate 76 without any acute ischemic changes. Echo showed preserved ejection fraction, no structural heart disease. Renal US obtained showed suggestion of renal artery stenosis. 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 Rest of W/O to R/O secondary etiology were negative. [facility] Medical History (Updated 08/15/24 @ 20:34 by Shiva Monk MD) Venous ulcer Pulmonary embolism COVID-19 HTN (hypertension) Surgical History No significant past surgical history Social History Household Members: Spouse and Children Housing: House Do you presently have visiting nurse or other home services: No Patient Tobacco Use Status: Never used Tobacco e-Cigarette/Vaping Use: Never Used Advance Directives Date on File: 01/16/21 service: No Current occupational status: disabled Review of Systems Const All systems reviewed & are unremarkable except as noted in HPI and below Physical Exam Vital Signs: Last Vital Signs Pulse 75 01/05/25 11:39 BP 148/90 H 01/05/25 11:39 Pulse Ox 97 01/05/25 11:39 Oxygen Delivery Method Room Air 01/05/25 11:39 BMI result Body Mass Index 41.7 Const General: comfortable and no acute distress Orientation/consciousness: patient oriented x3 HEENT Head: Yes normocephalic Mouth: Normal oral and palatal mucosa present Eyes EOM: EOMs intact bilaterally Neck Neck: Yes supple Resp Auscultation: clear to auscultation bilaterally Cardio Jugular venous distension: no JVD Rate: regular rate GI Palpation (GI): Soft to palpation Auscultation: normal bowel sounds General: Yes no CVA tenderness Back/Spine/Pelvis Back: no CVA tenderness Skin General skin exam: no rashes or lesions noted Neuro General: patient oriented x3 and moves all extremities Extrem General: Yes no pedal edema Results Reviewed Nephrology Results: Hgb, (12.0-16.0) 13.3 g/dl 01/05/24 WBC, (4.8-10.8) 10.0 X10*3/uL 01/05/24 Plt Count, (160-400) 290 X10*3/uL 01/05/24 Sodium, (135-145) 138 mmol/L 11/16/24 Potassium, (3.3-5.1) 4.0 mmol/L 11/16/24 Chloride, (96-108) 107 mmol/L 11/16/24 Carbon Dioxide, (22-29) 24 mmol/L 11/16/24 BUN, (9-16) 14 mg/dL 11/16/24 Creatinine, (0.5-1.4) 0.69 mg/dL 11/16/24 Calcium, (8.4-10.2) 9.2 mg/dL 01/06/24 Urine Protein, (Neg-Trace) Negative mg/dL 01/04/24 Renal US 01/04/24 Assessment & Plan Assessment & Plan (1) HTN (hypertension): Code(s): I10 - Essential (primary) hypertension Category: Medical Qualifiers: Hypertension type: renovascular hypertension Qualified Code(s): I15.0 - Renovascular hypertension (2) Fibromuscular dysplasia: Code(s): I77.3 - Arterial fibromuscular dysplasia Category: Medical Plan C/W current dose of HCTZ No has no retinopathy/proteinuria Renal function normal Low Na diet; CTA showed FMD renal arteries Increased Carvedilol to 12.5 mg bid Will benefit from sleep study as oupt Needs to continue life style modifications All questions answered; F/U given Medications: Changed From carvedilol 6.25 mg See Protocol PO BID 90 days 180 tabs 0RF To carvedilol 12.5 mg See Protocol PO BID 180 tabs 3RF 90 days Coding Level of Care Code Est Pt Level 4 (35346) Diagnoses Renovascular hypertension I15.0 Hypertension type: renovascular hypertension Fibromuscular dysplasia I77.3
[2025-01-05 11:39] VITALS: BP 148/90; PULSE 75; O2SAT 97; BMI 41.7
== END 2025-01-05 12:03 | disposition home or self-care (01) ==
LOC: HO.HKA 11:31
PROVIDERS: PCP Internal Medicine; Visit Provider Internal Medicine Nephrology
DX: I15.0 Renovascular hypertension (principal); I77.3 Arterial fibromuscular dysplasia
CPT/HCPCS: 99214

== ENCOUNTER 2025-02-07 08:54 | Outpatient (REF) | payer BC, MEDICAID, SELFPAY ==
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
--- OUTSIDE RECORDS SUMMARY | 2025-02-07 09:32 | XMS_ITS | Data Portability ---
Author Organization [facility]real [facility] [address] Address [address] [place] [address] Care Team Providers Care Education Trainer Name Role Phone JUAN CORRALES Primary Care Provider Assessment No assessment recorded. Plan of Treatment Reminders Order Date Submit Date Provider Last Modified By Organization Details Last Modified Time Details Appointments None record ed. Lab None record ed. Referral None record ed. Procedures None record ed. Surgeries None record ed. Imaging XR, ankle, 3 or more view 023 11/21/19 [facility], [address] [place], [address], 13:36:26 Medication Orders None record ed. Patient TargetsNo targets recorded. Patient Instructions Encounter Date Encounter Id Patient Instructions Last Modified By Organization Details Last Modified Time 11/20/2022 [id number] ice or heat to area whichever feels [...] ed. [facility] [address] [place], [address], 11/20/2022 14:39:13 Result Notes None recorded. Problems Name Problem SNOMED Code Status Onset Date Resolution Date Notes Provider Name and Address Organization Details Recorded Time Hypertensive disorder 95212858 Active 2022 Dang garcia, PA - [facility] 3 12:23:07 Anxiety 92101859 Active 2022 Dang garcia, PA - [facility] 3 12:23:15 Depressive disorder 78904128 Active 2022 D[facility], [facility] - [facility] [...] Name and Address Organization Details Recorded Time 102614 Bactrim medicatio n Not available Not available Not available 11/20/2022 47333 9 RxNorm Dang garcia, [facility] - [facility] [...] Updated DateTime 3 157.48 cm 42.1 kg/m2 413804. 25 g 7 96 % 96 % 79 /min 18 /min 98.4 [degF] 132/80 mm[Hg] Dang [facility] [employer] 12:27:40 Social History Question Answer Notes LastModified by [employer] Details LastModified Time Tobacco Smoking Status Never Smoker [facility] Howell [facility] 11/20/2022 12:24:33 Have You Recently Traveled Abroad? No Information not available 11/20/2022 Sex: Unknown Functional Status Question Answer Note LastModified by [employer] Details LastModified Time How many times per [...] Diagnosis SNOMED-CT Code Diagnosis ICD10 Code Diagnosis IMO Codes Diagnosis Note [id number] [address] [place] [address] 10/01/2015 18:11:12 10/01/2015 20:00:46 [id number] [address] [place] [address] 08/08/2015 18:44:26 08/08/2015 20:03:09 [id number] [address] [place] [address] 06/13/2021 15:08:17 06/13/2021 17:44:53 [id number] [address] [place] [address] 05/21/2019 12:17:48 05/21/2019 13:34:24 [id number] Melvin Coles NP [address] [place] [address] 11/20/2022 12:04:29 11/20/2022 13:14:09 Pain of right ankle joint 2466376861 4138581 M25.571 Health Concerns Section Related Observation LastModified by Organization Detai ls LastModified Time None Recorded Concern Status LastModified by Organization Details LastModified Time None Recorded Advance Directives Directive None Recorded Payers Insurance Date Sequence Insurance Name Policy Number Policy Jacobs Covered Member ID Jacobs Member ID Guarantor Name 12/03/2022 1 [facility]: MEDICARE HMO PEDR[place] (MEDICARE REPLACEMENT HMO) [id number] Elizabeth Marc [id number] Elizabeth Marc Notes Date Note Type [...] Coles NP [address] [place], [address], [place] - [facility] 11/20/2022 13:13:47 OBGyn Episode No OBEpisode recorded.
--- OUTSIDE RECORDS SUMMARY | 2025-02-07 09:32 | XMS_ITS | Encounter Summary ---
Author Organization [place] [address] Care Team Providers Care Drawer Maker Name Role Phone Daysi Beckett MD Primary Care Provider [phone] Encounter Details Date Type Department Care Team (Late st Contact Info) Description 01/03/2025 Nurse Triage Adult Medicine [facility] [address] [place], [place] [phone] Daysi Beckett MD [address] [place], [place] Social History Tobacco Use Types Packs/Day [...] care for your loved ones. For example, children's counselor or elderly care for an older [...] 9:45 AM EST Office Visit Adult Medicine [facility] [address], [place] [phone] Daysi Beckett MD [address] [place], [place] 05/17/2025 8:30 AM EST Procedure visit Vascular Surgery - [place] [address] [place] [address] Daniel Bianchi MD [address] [place] [phone] 05/21/2025 10:00 AM EST Ancillary Procedure [facility] [address] [place] [phone] 06/04/2025 10:30 AM EST Office Visit Vascular Surgery - [place] [address] [place] [address] Ligia Valladares PA [address] [place] [phone] documented as of this encounter Visit Diagnoses Not on filedocumented in this encounter Additional Health Concerns Assessment Noted Time PHQ-9 Depression Total Score: 0 09/29/19 25 8:33 AM EDT documented as of this encounter Care Teams Drawer Maker Relationship Specialty Start Date End Date Daysi Beckett MD [address] [place] [address] PCP - General 12/30/04 documented as of this encounter
--- OUTSIDE RECORDS SUMMARY | 2025-02-07 09:32 | XMS_ITS | Clinical Summary ---
Author Organization [facility] Address [address] [place] [address] Care Team Providers Care Ion Implant Machine Operator Name Role Phone Daysi Beckett MD Primary Care Provider [phone] Allergies Active Allergy Reactions Criticality Noted Date [...] (2 - Td or Tdap) 07/30/2021 07/31/2011 Breast Cancer Screening (Mammogram) 01/09/2024 Shingrix-Zoster Vaccine (1 of 2) 01/09/2024 COVID-19 Vaccine (3 - season) 2024 04/20/2021, 03/29/2021 Influenza Vaccine (#1) 2024 , 02/17/2016, 02/28/2014, Additional history exists Pneumococcal Vaccine Aged Out No long er eligible based on patient's age to complete this topic RSV Ped < 20 months Aged Out No longe r eligible based on patient's age to complete this topic Care Teams Ion Implant Machine Operator Relationship Specialty Start Date End Date Daysi Beckett MD PCP - General Internal Medicine 12/23/21
--- OUTSIDE RECORDS SUMMARY | 2025-02-07 09:32 | XMS_ITS | Clinical Summary ---
Author Organization [address] Address [address] [place] [phone] Phone Care Team Providers Care Manual Plate Filler Name Role Phone Daysi Beckett MD Primary Care Provider [phone] Allergies Active Allergy Reactions Criticality Noted Date Comments Naproxen 12/23/2007 Gi distress and diarrhea Sulfamethoxazole-Trim ethoprim Nausea And Vomiting Medium 01/03/2015 Medications multivitamin (MULTIPLE VITAMINS ORAL) OTC Active UNABLE TO FIND OTC Active busPIRone (BUSPAR) 15 mg tablet Take 1 tablet (15 mg total) by mouth 2 (two) times a day. 180 tablet 1 09/21/19 25 Active sertraline (ZOLOFT) 100 mg tablet Take 1 tablet (100 mg total) by mouth 1 (one) time each day. 90 tablet 1 09/21/19 25 Active tiZANidine (ZANAFLEX) 2 mg tablet Take 1 tablet (2 mg total) by mouth 2 (two) times a week. 30 tablet 12/15/19 25 Active HYDROcodone-a cetaminophen (NORCO) 5-325 mg per tablet Take 1 tablet by mouth 1 (one) time each day if needed for severe pain. Take 1 Tablet by mouth daily as needed for Pain. Max Daily Amount: 1 tablet 30 tablet 12/13/19 25 Active carvediloL (COREG) 12.5 mg tablet Take 1 tablet (12.5 mg total) by mouth 2 (two) times a day. Prescribed Dr. Monk, Nephrologies with [facility] [place]. Dose change 01/05/25 Active hydroCHLOROth iazide 12.5 mg tablet Take 1 tablet (12.5 mg total) by mouth 2 (two) times a day. 90 tablet 1 01/24/20 25 Active magnesium oxide (MAG-OX) 400 mg magnesium tablet Take 1 tablet (400 mg total) by mouth 1 (one) time each day. 30 tablet 1 01/24/20 25 Active hydroCHLOROth iazide 12.5 mg tablet Take 1 tablet (12.5 mg total) by mouth 1 (one) time each day. 90 tablet 1 09/21/19 25 025 Discontinued(R eorder) carvediloL (COREG) 6.25 mg tablet Take 1 tablet (6.25 mg total) by mouth 2 (two) times a day with meals. 180 tablet 1 09/21/19 25 025 Discontinued Active Problems Problem Noted Date Diagnosed Date [...] extr emity with both ulcer and inflammation ([facility] V24, [facility] V28) 06/29/2005 Overview (02/07/2024): Had laser procedure through vascular 01/05 Morbid obesity with BMI of 4 0.0-44.9, adult ([facility] V24, [facility] V28) Resolved Problems Problem Noted Date Diagnosed Date Resolved Date Other pulmonary embolism wit hout acute cor pulmonale ([facility] V24, [facility] V28) 01/31/202204/2024 Encounters Date Type Department Care Team Description 01/23/2025 8:45 AM EDT Office Visit Adult Medicine [address] [phone] Henrietta Sales, YUNI Acute non intractable tension-type headache (Primary Dx); Primary hypertension 01/22/2025 Telephone Adult Medicine [address] [phone] Daysi Beckett MD 01/16/2025 Telephone Vascular Surgery [address] [phone] Fatuma Martinez MA 01/16/2025 Telephone Vascular Surgery [address] [phone] Fatuma Martinez MA 01/03/2025 Nurse Triage Adult Medicine [address] [phone] Daysi Beckett MD 12/26/2024 Telephone Vascular Surgery [address] [phone] Ligia Valladares PA 12/21/2024 10:00 AM EDT Office Visit Adult Medicine [address] [phone] Maggy Anderson PA Encounter for annual wellness visit (AWV) in Medicare patient (Primary Dx); Pneumococcal vaccination declined; Chronic bilateral thoracic back pain; Morbid obesity with BMI of 40.0-44.9, adult ([facility]/HCC V24, [facility] V28); Primary hypertension; Hyperlipidemia LDL goal <100; Fibromyalgia; Current severe episode of major depressive disorder without psychotic features, unspecified whether recurrent (CMS/[facility] V24, [facility] V28); Anxiety; Renal fibromuscular dysplasia ([facility] V24) from Last 3 Months Immunizations Immunization Administration Dates Next Due Influenza Quadravalent, MDCK , 0.5ml, preservative free (Flucelvax) 6mo and older 02/20/2020 Influenza trivalent, with preservative (Fluzone; Afluria) 6mo and older 02/17/2016,02/28/2014,02/25/2012,2010,01/22/2010,01/11/2008,03/03/2005 Looxcie SARS-CoV-2 COVID-19, mRNA, LNP-S, preservative free 04/20/2021,03/29/2021 [...] bowel syndrome) Anxiety Fibromyalgia Hypertension Fibromuscular dysplasia ([facility] V24) 12/2023 renal fibromuscular dysplasia Superficial phlebitis while preg nant, treated with lovenox Depression Morbid obesity with BMI of 4 0.0-44.9, adult ([facility] V24, [facility] V28) Varicose veins of both lower extremities had laser procedure through vascular, 01/05 Pneumonia due to COVID-19 virus 12/2020 Morbid obesity ([facility] V24, [facility] V28) 10/12/2006 DX:Morbid obesity (HCC) Fibromyalgia 11/07/2018 DX:Fibromyalgia Family History Medical History [...] for your loved ones. For example, child monitor or elderly care for an older adult? [...] Sexual Orientation Not on file Obstetrics History * This document contains information received from the source organization and may not represent a complete record from that organization. Para Term AB IAB SAB Ectopic Multiple Livin g Live Births 5 4 4 0 0 0 4 4 Date Outcome GA Total Labor Labor/2nd/3rd Weight Sex Type Anes PTL Irais A1 A5 Name Clin Term Vag-S pont Living Term Vag-S pont Living Term Vag-S pont Living Term Vag-S pont Living Last Filed Vital Signs Vital Sign Reading Time Taken Comments Blood Pressure 122/77 01/23/2025 8:54 AM EDT Pulse 65 01/23/2025 8:54 AM EDT Temperature 36.3 C (97.3 F) 01/23/2025 8:54 AM EDT Respiratory Rate 16 01/23/2025 8:54 AM EDT Oxygen Saturation 98% 01/23/2025 8:54 AM EDT Inhaled Oxygen Concentration - - Weight 105 kg (232 lb) 01/23/2025 8:54 AM EDT Height 157.5 cm (5' 2 ) 01/23/2025 8:54 AM EDT Body Mass Index 42.43 01/23/2025 8:54 AM EDT Plan of Treatment Upcoming Encounters Date Type Department Care Team (Late st Contact Info) Description 03/21/2025 9:45 AM EST Office Visit Adult Medicine [facility] [address] [place], [place] [phone] Daysi Beckett MD [address] [place], [place] 05/17/2025 8:30 AM EST Procedure visit Vascular Surgery - [place] [address] [phone] Daniel Bianchi MD [address] [place] [phone] 05/21/2025 10:00 AM EST Ancillary Procedure [facility] [address] [facility] [address] [place] [phone] 06/04/2025 10:30 AM EST Office Visit Vascular Surgery - [address] [phone] Ligia Valladares PA [address] [place] [phone] Health Maintenance Due Date Last Done Comments Hepatitis B Vaccines (1 of 3 - 19+ 3-dose series) 1993 Colorectal Cancer Screening: FIT-DNA (Cologuard) 04/04/2022 HIV Screening 04/04/2022 Pneumococcal Vaccine: 50+ Years (1 of 1 - PCV) 01/09/2024 RSV Immunization Adult Patients (1 - Risk 50-74 years 1-dose series) 01/09/2024 Breast Cancer Screening 09/22/2024 09/23/19, 09/23/2023, 03/24/2023, Additional history exists COVID-19 Vaccine (3 - 2024- season) 2024 04/20/2021, 03/29/2021 Influenza Vaccine (#1) 2024 , 02/17/2016, 02/28/2014, Additional history exists Hypertension/CHF/CAD Annual BMP Blood Test 08/08/2025 08/08/2024, 06/18/2023 Cervical Cancer Screening: HPV 12/13/2025 12/13/2020 Social Influencers of Health Screening 12/20/2025 12/20/2024 Medicare Annual Wellness Visit 12/21/2025 12/21/2024 Cholesterol Screening (Lipid Panel) 08/08/2029 08/08/2024, 06/18/2023 DTaP,Tdap,and Td Vaccines (5 - Td or Tdap) 06/18/2032 06/18/2022, 06/18/2022, 07/31/2011, Additional history exists Hepatitis C Screening Completed 08/08/2024 Depression Screening Completed 12/20/2024, 01/26/20 24 HIB Vaccines Aged Out No longer eligi [...] Procedure Name Priority Date/Time Associated Diagnosis Comments HEPATITIS C ANTIBODY Routine 08/08/2024 9:46 AM EDT Need for hepatitis C screening test COMPREHENSIVE METABOLIC PANEL Routine 08/08/2024 9:46 AM EDT Refused influenza vaccine Refused pneumococcal vaccine Current severe episode of major depressive disorder without psychotic features, unspecified whether recurrent (CMS/HCC V24, CMS/[facility] V28) Primary hypertension Hyperlipidemia, unspecified hyperlipidemia type [...] Recently Relevant to Health Maintenance Results * Hepatitis C antibody (08/08/2024 9:46 AM EDT) Pathologist [facility] Hepatitis C Antibody Negative Negative LAB CHEMISTRY METHOD 08/08/2024 2:01 PM EDT [facility] Blood Venous blood specimen / Unknown Venipuncture / Unknown 08/08/2024 9:46 AM EDT 08/08/2024 9:46 AM EDT us Maggy WATSON LAB BLOOD ORDERABLES Final Re sult [facility] [address] [place] [address], [place] [phone] * (ABNORMAL) Lipid panel with reflex to direct LDL (08/08/2024 9:46 AM EDT) Cholesterol 257(H) 0 - 200 mg/dL LAB CHEMISTRY METHOD 08/08/2024 12:55 PM EDT [facility] Triglycerides 235(H) 0 - 150 mg/dL LAB CHEMISTRY METHOD 08/08/2024 12:55 PM EDT [facility] HDL 57 >=40 mg/dL LAB CHEMISTRY METHOD 08/08/2024 12:55 PM EDT [facility] LDL Calculated 153(H) 0 - 100 mg/dL LAB CHEMISTRY METHOD 08/08/2024 12:55 PM EDT [facility] VLDL Cholesterol Young 47 mg/dL LAB CHEMISTRY METHOD 08/08/2024 12:55 PM T [facility] Non HDL Chol. (LDL+VLDL) 200(H) <145 mg/dL LAB CHEMISTRY METHOD 08/08/2024 12:55 PM [facility] Chol/HDL Ratio 4.5(H) 0.0 - 4.4 LAB CHEMISTRY METHOD 08/08/2024 12:55 PM [facility] Blood Venous blood specimen / Unknown Venipuncture / Unknown 08/08/2024 9:46 AM EDT 08/08/2024 9:46 AM EDT us Maggy WATSON LAB BLOOD ORDERABLES Final Re sult [facility] [address] [place] [address], * Comprehensive metabolic panel (08/08/2024 9:46 AM EDT) Sodium 139 133 - 145 mmol/L LAB CHEMISTRY METHOD 08/08/2024 12:55 PM [facility] Potassium 3.7 3.5 - 5.5 mmol/L LAB CHEMISTRY METHOD 08/08/2024 12:55 PM [facility] Chloride 107 96 - 110 mmol/L LAB CHEMISTRY METHOD 08/08/2024 12:55 PM [facility] CO2 24 21 - 32 mmol/L LAB CHEMISTRY METHOD 08/08/2024 12:55 PM [facility] Anion Gap 8 3 - 11 LAB CHEMISTRY METHOD 08/08/2024 12:55 PM [facility] Glucose 100 70 - 100 mg/dL LAB CHEMISTRY METHOD 08/08/2024 12:55 PM [facility] BUN 15 5 - 25 mg/dL LAB CHEMISTRY METHOD 08/08/2024 12:55 PM [facility] Creatinine 0.72 0.50 - 1.10 mg/dL LAB CHEMISTRY METHOD 08/08/2024 12:55 PM [facility] eGFR 102 >=60 mL/min/1. 73m2 LAB CHEMISTRY METHOD 08/08/2024 12:55 PM [facility] Comment:Calculation based on the Chronic Kidney Disease Epidemiology Collaboration (CKD-EPI) equation refit without adjustment for race. BUN/Creatinine Ratio 20.8 LAB CHEMISTRY METHOD 08/08/2024 12:55 PM [facility] Calcium 9.8 8.5 - 10.5 mg/dL LAB CHEMISTRY METHOD 08/08/2024 12:55 PM [facility] AST (SGOT) 14 10 - 42 unit/L LAB CHEMISTRY METHOD 08/08/2024 12:55 PM [facility] ALT (SGPT) 21 10 - 60 unit/L LAB CHEMISTRY METHOD 08/08/2024 12:55 PM [facility] Alkaline Phosphatase 75 42 - 121 unit/L LAB CHEMISTRY METHOD 08/08/2024 12:55 PM [facility] Total Protein 7.6 6.0 - 8.0 g/dL LAB CHEMISTRY METHOD 08/08/2024 12:55 PM [facility] Albumin 3.8 3.2 - 5.0 g/dL LAB CHEMISTRY METHOD 08/08/2024 12:55 PM [facility] Total Bilirubin 0.6 0.0 - 1.4 mg/dL LAB CHEMISTRY METHOD 08/08/2024 12:55 PM [facility] Blood Venous blood specimen / Unknown Venipuncture / Unknown 08/08/2024 9:46 AM EDT 08/08/2024 9:46 AM EDT us Maggy WATSON LAB BLOOD ORDERABLES Final Re sult [facility] [address] [place] [address], [place] [phone] * Depression Screening (01/26/2024) Depression Screening Abstracted us Historical Provider MD HEALTH MAINTENANCE Final Result [...] study. Procedure Note Yonathan Valdez MD - 08/19/2024 This is a summary report. The complete [...] CROSS - [place] MEDIC[place] ADV[place] Care Teams Manual Plate Filler Relationship Specialty Start Date End Date Daysi Beckett MD [address] [place] [phone] PCP - General 12/30/04
[2025-02-07 10:34] LABS: Anion Gap 15 (12-20); Blood Urea Nitrogen 15 mg/dL (9-16); Carbon Dioxide 25 mmol/L (22-29); Chloride 104 mmol/L (96-108); Estimated Glomerular Filt Rate > 60; Potassium 3.5 mmol/L (3.3-5.1); Sodium 140 mmol/L (135-145)
== END 2025-02-07 08:55 | disposition home or self-care (01) ==
LOC: HO.HMGCLDS 08:54
PROVIDERS: PCP Internal Medicine; Visit Provider Internal Medicine Nephrology
DX: I15.0 Renovascular hypertension (principal); I77.3 Arterial fibromuscular dysplasia; Z79.899 Other long term (current) drug therapy
CPT/HCPCS: 36415; 80051; 82565; 84520

== ENCOUNTER 2025-02-07 10:33 | Outpatient (AMB) | payer BC, MEDICAID, SELFPAY ==
--- NOTE | 2025-02-07 10:40 | HO.NEPHOV ---
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 She did not have any vision changes, nausea, vomiting, shortness of breath, palpitations, syncope, chest pain but has headaches. She has no H/O drug use. Head CT done in the past was negative for any acute intracranial abnormality. Chest x-ray unremarkable. EKG shows NSR, rate 76 without any acute ischemic changes. Echo showed preserved ejection fraction, no structural heart disease. Renal US obtained showed suggestion of renal artery stenosis. 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 Rest of W/O to R/O secondary etiology were negative. She has been having headache and was started on Magnesium PFSH Medical History (Updated 08/15/24 @ 20:34 by Shiva Monk MD) Venous ulcer Pulmonary embolism COVID-19 HTN (hypertension) Surgical History No significant past surgical history Social History Household Members: Spouse and Children Housing: House Do you presently have visiting nurse or other home services: No Patient Tobacco Use Status: Never used Tobacco e-Cigarette/Vaping Use: Never Used Advance Directives Date on File: 01/16/21 service: No Current occupational status: disabled Review of Systems Const All systems reviewed & are unremarkable except as noted in HPI and below Physical Exam Vital Signs: Last Vital Signs Pulse 75 02/07/25 10:42 BP 122/80 02/07/25 10:42 Pulse Ox 98 02/07/25 10:42 Oxygen Delivery Method Room Air 02/07/25 10:42 BMI result Body Mass Index 42.3 Const General: comfortable and no acute distress Orientation/consciousness: patient oriented x3 HEENT Head: Yes normocephalic Mouth: Normal oral and palatal mucosa present Eyes EOM: EOMs intact bilaterally Neck Neck: Yes supple Resp Auscultation: clear to auscultation bilaterally Cardio Jugular venous distension: no JVD Rate: regular rate GI Palpation (GI): Soft to palpation Auscultation: normal bowel sounds General: Yes no CVA tenderness Back/Spine/Pelvis Back: no CVA tenderness Skin General skin exam: no rashes or lesions noted Neuro General: patient oriented x3 and moves all extremities Extrem General: Yes no pedal edema Results Reviewed Nephrology Results: Sodium, (135-145) 140 mmol/L Today Potassium, (3.3-5.1) 3.5 mmol/L Today Chloride, (96-108) 104 mmol/L Today Carbon Dioxide, (22-29) 25 mmol/L Today BUN, (9-16) 15 mg/dL Today Creatinine, (0.5-1.4) 0.67 mg/dL Today Assessment & Plan Assessment & Plan (1) HTN (hypertension): Code(s): I10 - Essential (primary) hypertension Category: Medical Qualifiers: Hypertension type: renovascular hypertension Qualified Code(s): I15.0 - Renovascular hypertension Plan C/W current dose of HCTZ No has no retinopathy/proteinuria Renal function normal Low Na diet; CTA showed FMD renal arteries C/W Carvedilol 12.5 mg bid Will benefit from sleep study as oupt Needs to continue life style modifications All questions answered; F/U given Coding Level of Care Code Est Pt Level 4 (08265) Diagnoses Renovascular hypertension I15.0 Hypertension type: renovascular hypertension
[2025-02-07 10:42] VITALS: BP 122/80; PULSE 75; O2SAT 98; BMI 42.3
== END 2025-02-07 10:57 | disposition home or self-care (01) ==
LOC: HO.HKA 10:34
PROVIDERS: PCP Internal Medicine; Visit Provider Internal Medicine Nephrology
DX: I15.0 Renovascular hypertension (principal)
CPT/HCPCS: 99214